=== PATIENT | female | born 1980 | race Caucasian/White ===

== ENCOUNTER 2016-09-04 20:11 | Emergency (ER) | payer MEDICAID ==
[~2016-09-04] VITALS: Ht 167.6 cm; Wt 68.0 kg
[~2016-09-04 20:11] MED LIST: *INS REG3 SQ; INSU100V28 SQ; INSU3INS6 SUBCUT
[2016-09-05 05:56] VITALS: BP 124/72
[2016-09-05] MEDS ORDERED: INSU100I14 SQ (08:55)
[2016-09-05] MEDS ORDERED: INSU3INS6 SQ (08:55)
== END 2016-09-05 05:56 | disposition home or self-care (01) ==
LOC: ER 20:11
DX: E10.40 Type 1 diabetes mellitus with diabetic neuropathy, unspecified (principal); E10.610 Type 1 diabetes mellitus with diabetic neuropathic arthropathy; I10 Essential (primary) hypertension; F17.200 Nicotine dependence, unspecified, uncomplicated; Z59.0 Homelessness; Z88.0 Allergy status to penicillin; Z88.6 Allergy status to analgesic agent; Z88.8 Allergy status to other drugs, medicaments and biological substances; Z88.1 Allergy status to other antibiotic agents
CPT/HCPCS: 73610; 73630; 82962 ×5; 99284; A4606; Z7610

== ENCOUNTER 2016-09-05 07:28 | Inpatient (IN) | payer MEDICAID ==
[~2016-09-05] VITALS: Ht 167.6 cm; Wt 68.0 kg
[2016-09-05] VITALS (24 sets, daily range): BP systolic 97–155; BP diastolic 43–96
[2016-09-05] MEDS ORDERED: IV NS 0.9% 1,000 ML ONE ×2 (07:56→11:15)
[2016-09-05] MEDS ORDERED: IV SET PRIMARY PUMP SET 1 EA INFUS.SET MC ONE ×4 (07:56→14:47)
[2016-09-05] MEDS ORDERED: ONDANSETRON HCL/PF 4 MG/2 ML VIAL IVP ONE (08:00)
[2016-09-05] MEDS ORDERED: IV NS 0.9% 1,000 ML BAG IV ONE ×2 (08:00→11:00)
[2016-09-05 08:35] LABS: KETONES,URINE 2+ (NEGATIVE); LEUKOCYTE ESTERASE ,URINE NEGATIVE (NEGATIVE); PH,URINE 5.5 (5.0-8.0)
[2016-09-05 08:36] LABS: ADD UA MICROSCOPIC YES
[2016-09-05 08:38] LABS: PREGNANCY TEST URINE QUAL NEGATIVE (NEGATIVE)
[2016-09-05 08:42] LABS: ADD URINE CULTURE NO; WBC,URINE 0-2 /HPF (0-3)
[2016-09-05] MEDS ORDERED: INSU100I14 SQ (08:55)
[2016-09-05] MEDS ORDERED: INSU3INS6 SQ (08:55)
[2016-09-05] MEDS ORDERED: ONDANSETRON HCL/PF 4 MG/2 ML VIAL ONE (09:19)
[2016-09-05 10:37] LABS: ABG BASE EXCESS -16.2 mmol/L; ABG HCO3 7.6 mmol/L; ABG PCO2 15.5 mmHg (35.0-45.0); ABG TOTAL HEMOGLOBIN 11.7 G/dL (12.0-16.0); ALLEN TEST Pass; AaDO2 13.2 mmHg; O2Hb 96.5 % (94.0-97.0)
[2016-09-05 10:43] LABS: BASOPHILS % (AUTO) 0.2 % (0.0-2.0); DIFF TOTAL % 100 %; EOSINOPHILS % (AUTO) 0.2 % (0.0-6.0); HEMATOCRIT 34 % (33-45); HEMOGLOBIN 11.1 g/dL (11.5-14.8); LYMPHOCYTES # (AUTO) 0.9 /CMM (0.8-4.8); LYMPHOCYTES % (AUTO) 5.5 % (20.0-44.0); MEAN CORPUSCULAR HEMOGLOBIN 28 PG (26.0-33.0); MEAN CORPUSCULAR HGB CONC 33 g/dl (31.0-36.0); MEAN CORPUSCULAR VOLUME 86 fL (82-100); MONOCYTES # (AUTO) 0.4 /CMM (0.1-1.30); MONOCYTES % (AUTO) 2.4 % (2.0-12.0); NEUTROPHILS # (AUTO) 14.7 /CMM (1.8-8.9); NEUTROPHILS % (AUTO) 91.7 % (43.0-81.0); PLATELET COUNT (AUTO) 428 /CMM (150-450); RED BLOOD CELL COUNT(AUTO) 3.94 MIL/uL (4.0-5.2)
[2016-09-05] MEDS ORDERED: INSULIN REGULAR, HUMAN 100 UNIT in IV NS 0.9% 99 ML IV PRN ×4 (11:00→13:30)
[2016-09-05 11:39] LABS: ACETONE, SERUM SMALL (NEGATIVE)
[2016-09-05] MEDS ORDERED: IV NS 0.9% 1,000 ML BAG IV PRN (13:30)
[2016-09-05] MEDS ORDERED: ONDANSETRON HCL/PF 4 MG/2 ML VIAL IV PRN (14:00)
[2016-09-05] MEDS ORDERED: Z GUARD REMEDY 2 OZ OINT TP PRN (14:30)
[2016-09-05] MEDS ORDERED: HYDROCODONE/APAP 5/325MG 1 EACH TABLET PO PRN ×2 (14:30→21:00)
[2016-09-05] MEDS ORDERED: MAG HYDROX/AL HYDROX/SIMETH 30 ML UDC PO PRN (14:30)
[2016-09-05] MEDS ORDERED: ACETAMINOPHEN 325 MG TABLET PO PRN ×2 (14:30→21:00)
[2016-09-05] MEDS ORDERED: MAGNESIUM HYDROXIDE 30 ML UDC PO PRN (14:30)
[2016-09-05] MEDS ORDERED: ONDANSETRON HCL/PF 4 MG/2 ML VIAL IVP PRN (14:30)
[2016-09-05] MEDS: BLOOD SUGAR DIAGNOSTIC 1 EACH STRIP IN SCH ×9 (14:53→22:08)
[2016-09-05 17:12] LABS: CANNABINOID, URINE NEGATIVE (NEGATIVE); PHENCYCLIDINE SCREEN,URINE NEGATIVE (NEGATIVE)
[2016-09-05] MEDS ORDERED: IV D5/0.45 NACL 500 ML IV PRN (17:30)
[2016-09-05] MEDS ORDERED: IV D5/0.45 NACL 1,000 ML IV PRN (18:30)
[2016-09-05 18:43] LABS: ANION GAP 23 (5-14); CALCIUM, SERUM 8.2 mg/dL (8.5-10.1); CARBON DIOXIDE 13 mmol/L (21-32); CHLORIDE 104 mmol/L (98-107); CREATININE 1.2 mg/dL (0.6-1.3); GFR 51 mL/min (>60); GLUCOSE 178 mg/dL (74-106); UREA NITROGEN, BLOOD 24 mg/dL (7-18)
[2016-09-05 18:46] LABS: SODIUM SERUM 135 mmol/L (136-145)
[2016-09-05 18:51] LABS: ALANINE AMINOTRANSFERASE 27 U/L (12-78); ALBUMIN 2.4 g/dL (3.4-5.0); ASPARTATE AMINOTRANSFERASE 33 U/L (15-37); BILIRUBIN,TOTAL 0.4 mg/dL (0.2-1.0); INDIRECT BILIRUBIN 0.4 mg/dL (0.0-1.1); TOTAL PROTEIN, SERUM 6.4 g/dL (6.4-8.2)
[2016-09-05] MEDS: HYDROMORPHONE 1 MG/1 ML DISP.SYRIN IV PRN (21:03)
[2016-09-05] MEDS ORDERED: HYDROMORPHONE 1 MG/1 ML DISP.SYRIN IV ONE (21:30)
[2016-09-05] MEDS ORDERED: HYDROMORPHONE 1 MG/1 ML DISP.SYRIN IV PRN (21:30)
[2016-09-05 21:54] LABS: CALCIUM, SERUM 8.1 mg/dL (8.5-10.1); CREATININE 1.2 mg/dL (0.6-1.3); POTASSIUM 4.4 mmol/L (3.5-5.1)
[2016-09-05] MEDS: ZOLPIDEM TARTRATE 5 MG TABLET PO PRN (22:15)
[2016-09-05 23:57] LABS: CREATININE 1.2 mg/dL (0.6-1.3); POTASSIUM 4.5 mmol/L (3.5-5.1)
[2016-09-06] VITALS (24 sets, daily range): BP systolic 83–129; BP diastolic 36–77
[2016-09-06] MEDS ORDERED: BLOOD SUGAR DIAGNOSTIC 1 EACH STRIP IN SCH ×2 (01:00→18:00)
[2016-09-06] MEDS ORDERED: IV NS 0.9% 1,000 ML ONE (01:52)
[2016-09-06] MEDS: BLOOD SUGAR DIAGNOSTIC 1 EACH STRIP IN SCH ×6 (01:52→20:01)
[2016-09-06] MEDS: INSULIN REGULAR, HUMAN 100 UNIT/ML 3 ML VIAL SQ PRN ×5 (01:57→20:08)
[2016-09-06] MEDS: HYDROMORPHONE 1 MG/1 ML DISP.SYRIN IV PRN ×6 (01:58→22:05)
[2016-09-06] MEDS: IV NS 0.9% 1,000 ML IV PRN ×2 (01:58→10:01)
[2016-09-06] MEDS ORDERED: DEXTROSE 50%-WATER 50 ML DISP.SYRIN IV PRN (02:00)
[2016-09-06 04:43] LABS: BASOPHILS # (AUTO) 0.1 /CMM (0.0-0.2); BASOPHILS % (AUTO) 0.3 % (0.0-2.0); DIFF TOTAL % 100 %; EOSINOPHILS # (AUTO) 0.2 /CMM (0.0-0.7); EOSINOPHILS % (AUTO) 1.5 % (0.0-6.0); HEMATOCRIT 27 % (33-45); LYMPHOCYTES # (AUTO) 3.4 /CMM (0.8-4.8); LYMPHOCYTES % (AUTO) 23.6 % (20.0-44.0); MEAN CORPUSCULAR HEMOGLOBIN 28 PG (26.0-33.0); MEAN CORPUSCULAR HGB CONC 33 g/dl (31.0-36.0); MEAN CORPUSCULAR VOLUME 85 fL (82-100); MONOCYTES # (AUTO) 0.7 /CMM (0.1-1.30); MONOCYTES % (AUTO) 4.7 % (2.0-12.0); NEUTROPHILS # (AUTO) 10.2 /CMM (1.8-8.9); NEUTROPHILS % (AUTO) 69.9 % (43.0-81.0); PLATELET COUNT (AUTO) 409 /CMM (150-450); WHITE BLOOD COUNT (AUTO) 14.6 K/uL (4.3-11.0)
[2016-09-06] MEDS ORDERED: INSULIN REGULAR, HUMAN 100 UNIT/ML 10 ML VIAL ONE (04:53)
[2016-09-06 04:56] LABS: CALCIUM, SERUM 8.1 mg/dL (8.5-10.1); CREATININE 1.3 mg/dL (0.6-1.3); PHOSPHORUS 3.1 mg/dL (2.5-4.9); POTASSIUM 4.2 mmol/L (3.5-5.1)
[2016-09-06 10:38] LABS: CALCIUM, SERUM 8.2 mg/dL (8.5-10.1); CREATININE 1.1 mg/dL (0.6-1.3); POTASSIUM 3.9 mmol/L (3.5-5.1)
[2016-09-06] MEDS: diphenhydrAMINE HCL 50 MG/ML VIAL IV PRN (17:17)
[2016-09-06] MEDS: INSULIN DETEMIR 100 UNIT/ML CARTRIDGE SQ SCH (21:52)
[2016-09-06] MEDS ORDERED: INSULIN GLARGINE, 100 UNIT/ML CARTRIDGE SQ SCH (22:00)
[2016-09-07] VITALS: BP 118/77
[2016-09-07] MEDS: ZOLPIDEM TARTRATE 5 MG TABLET PO PRN ×2 (00:29→21:42)
[2016-09-07] MEDS: BLOOD SUGAR DIAGNOSTIC 1 EACH STRIP IN SCH ×6 (00:34→22:46)
[2016-09-07] MEDS: INSULIN REGULAR, HUMAN 100 UNIT/ML 3 ML VIAL SQ PRN ×5 (00:39→22:50)
[2016-09-07] MEDS: diphenhydrAMINE HCL 50 MG/ML VIAL IV PRN ×4 (01:40→21:42)
[2016-09-07] MEDS: HYDROMORPHONE 1 MG/1 ML DISP.SYRIN IV PRN ×6 (02:41→22:40)
[2016-09-07 16:00] VITALS: BP 127/79
[2016-09-07 20:00] VITALS: BP 134/81
[2016-09-07] MEDS ORDERED: BISACODYL (5 MG) 5 MG TABLET.DR PO ONE (22:30)
[2016-09-07] MEDS: INSULIN DETEMIR 100 UNIT/ML CARTRIDGE SQ SCH (22:51)
[2016-09-08] MEDS: BLOOD SUGAR DIAGNOSTIC 1 EACH STRIP IN SCH ×6 (01:55→20:36)
[2016-09-08] MEDS: INSULIN REGULAR, HUMAN 100 UNIT/ML 3 ML VIAL SQ PRN ×4 (01:56→22:00)
[2016-09-08] MEDS: HYDROMORPHONE 1 MG/1 ML DISP.SYRIN IV PRN ×5 (02:45→21:58)
[2016-09-08] MEDS: DEXTROSE 50%-WATER 50 ML DISP.SYRIN IV PRN (04:18)
[2016-09-08] MEDS: diphenhydrAMINE HCL 50 MG/ML VIAL IV PRN ×3 (05:17→17:23)
[2016-09-08 10:21] LABS: CALCIUM, SERUM 9.1 mg/dL (8.5-10.1); CREATININE 0.9 mg/dL (0.6-1.3); POTASSIUM 4.5 mmol/L (3.5-5.1)
[2016-09-08 10:39] LABS: BASOPHILS # (AUTO) 0.1 /CMM (0.0-0.2); BASOPHILS % (AUTO) 0.6 % (0.0-2.0); DIFF TOTAL % 100 %; EOSINOPHILS # (AUTO) 0.5 /CMM (0.0-0.7); EOSINOPHILS % (AUTO) 5.5 % (0.0-6.0); HEMATOCRIT 31 % (33-45); HEMOGLOBIN 10.3 g/dL (11.5-14.8); LYMPHOCYTES # (AUTO) 3.6 /CMM (0.8-4.8); LYMPHOCYTES % (AUTO) 37.8 % (20.0-44.0); MEAN CORPUSCULAR HEMOGLOBIN 28 PG (26.0-33.0); MEAN CORPUSCULAR HGB CONC 34 g/dl (31.0-36.0); MEAN CORPUSCULAR VOLUME 84 fL (82-100); MONOCYTES # (AUTO) 0.8 /CMM (0.1-1.30); MONOCYTES % (AUTO) 8.5 % (2.0-12.0); NEUTROPHILS # (AUTO) 4.5 /CMM (1.8-8.9); NEUTROPHILS % (AUTO) 47.6 % (43.0-81.0); PLATELET COUNT (AUTO) 414 /CMM (150-450); RED BLOOD CELL COUNT(AUTO) 3.68 MIL/uL (4.0-5.2); WHITE BLOOD COUNT (AUTO) 9.5 K/uL (4.3-11.0)
[2016-09-08] MEDS ORDERED: IV SET PRIMARY PUMP SET 1 EA INFUS.SET MC ONE (15:23)
[2016-09-08 19:52] VITALS: BP 119/75
[2016-09-08 20:00] VITALS: BP 119/75
[2016-09-08] MEDS: INSULIN DETEMIR 100 UNIT/ML CARTRIDGE SQ SCH (21:58)
[2016-09-09] MEDS: diphenhydrAMINE HCL 50 MG/ML VIAL IV PRN ×3 (00:25→17:02)
[2016-09-09] MEDS: ZOLPIDEM TARTRATE 5 MG TABLET PO PRN (00:26)
[2016-09-09] MEDS: BLOOD SUGAR DIAGNOSTIC 1 EACH STRIP IN SCH ×6 (00:33→21:51)
[2016-09-09] MEDS: DEXTROSE 50%-WATER 50 ML DISP.SYRIN IV PRN (04:48)
[2016-09-09 05:29] LABS: BASOPHILS % (AUTO) 0.6 % (0.0-2.0); DIFF TOTAL % 100 %; EOSINOPHILS # (AUTO) 0.4 /CMM (0.0-0.7); EOSINOPHILS % (AUTO) 5.8 % (0.0-6.0); HEMATOCRIT 29 % (33-45); HEMOGLOBIN 9.6 g/dL (11.5-14.8); LYMPHOCYTES # (AUTO) 2.4 /CMM (0.8-4.8); LYMPHOCYTES % (AUTO) 34.6 % (20.0-44.0); MEAN CORPUSCULAR HEMOGLOBIN 28 PG (26.0-33.0); MEAN CORPUSCULAR HGB CONC 34 g/dl (31.0-36.0); MEAN CORPUSCULAR VOLUME 83 fL (82-100); MONOCYTES # (AUTO) 0.7 /CMM (0.1-1.30); MONOCYTES % (AUTO) 9.5 % (2.0-12.0); NEUTROPHILS # (AUTO) 3.4 /CMM (1.8-8.9); NEUTROPHILS % (AUTO) 49.5 % (43.0-81.0); PLATELET COUNT (AUTO) 374 /CMM (150-450); RED BLOOD CELL COUNT(AUTO) 3.45 MIL/uL (4.0-5.2); WHITE BLOOD COUNT (AUTO) 6.9 K/uL (4.3-11.0)
[2016-09-09 05:41] LABS: CREATININE 0.8 mg/dL (0.6-1.3); POTASSIUM 3.5 mmol/L (3.5-5.1)
[2016-09-09 08:00] VITALS: BP 127/72
[2016-09-09] MEDS: DOCUSATE SODIUM 100 MG CAPSULE PO SCH (09:34)
[2016-09-09] MEDS: HYDROMORPHONE 1 MG/1 ML DISP.SYRIN IV PRN ×3 (09:36→19:06)
[2016-09-09] MEDS: INSULIN REGULAR, HUMAN 100 UNIT/ML 3 ML VIAL SQ PRN ×2 (13:07→17:32)
[2016-09-09 16:00] VITALS: BP 120/83
[2016-09-09 20:00] VITALS: BP 152/69
[2016-09-09] MEDS: INSULIN DETEMIR 100 UNIT/ML CARTRIDGE SQ SCH (22:36)
[2016-09-10] MEDS: diphenhydrAMINE HCL 50 MG/ML VIAL IV PRN ×4 (01:34→21:44)
[2016-09-10] MEDS: HYDROMORPHONE 1 MG/1 ML DISP.SYRIN IV PRN ×5 (01:34→21:44)
[2016-09-10] MEDS: BLOOD SUGAR DIAGNOSTIC 1 EACH STRIP IN SCH ×6 (01:58→21:44)
[2016-09-10] MEDS: INSULIN REGULAR, HUMAN 100 UNIT/ML 3 ML VIAL SQ PRN ×5 (02:02→22:34)
[2016-09-10 06:43] LABS: BASOPHILS # (AUTO) 0.1 /CMM (0.0-0.2); BASOPHILS % (AUTO) 1.1 % (0.0-2.0); DIFF TOTAL % 100 %; EOSINOPHILS # (AUTO) 0.4 /CMM (0.0-0.7); EOSINOPHILS % (AUTO) 5.8 % (0.0-6.0); HEMATOCRIT 31 % (33-45); HEMOGLOBIN 10.1 g/dL (11.5-14.8); LYMPHOCYTES # (AUTO) 3.2 /CMM (0.8-4.8); LYMPHOCYTES % (AUTO) 41.7 % (20.0-44.0); MEAN CORPUSCULAR HEMOGLOBIN 28 PG (26.0-33.0); MEAN CORPUSCULAR HGB CONC 33 g/dl (31.0-36.0); MEAN CORPUSCULAR VOLUME 84 fL (82-100); MONOCYTES # (AUTO) 0.5 /CMM (0.1-1.30); MONOCYTES % (AUTO) 6.9 % (2.0-12.0); NEUTROPHILS # (AUTO) 3.5 /CMM (1.8-8.9); NEUTROPHILS % (AUTO) 44.5 % (43.0-81.0); PLATELET COUNT (AUTO) 313 /CMM (150-450); RED BLOOD CELL COUNT(AUTO) 3.62 MIL/uL (4.0-5.2); WHITE BLOOD COUNT (AUTO) 7.8 K/uL (4.3-11.0)
[2016-09-10 07:02] LABS: CALCIUM, SERUM 8.7 mg/dL (8.5-10.1); CREATININE 0.8 mg/dL (0.6-1.3); POTASSIUM 3.8 mmol/L (3.5-5.1)
[2016-09-10 08:00] VITALS: BP 103/63
[2016-09-10] MEDS: DOCUSATE SODIUM 100 MG CAPSULE PO SCH (08:52)
[2016-09-10 16:00] VITALS: BP 104/68
[2016-09-10 20:00] VITALS: BP 102/60
[2016-09-10] MEDS: INSULIN DETEMIR 100 UNIT/ML CARTRIDGE SQ SCH (21:09)
[2016-09-10] MEDS ORDERED: INSULIN REGULAR, HUMAN 100 UNIT/ML 10 ML VIAL ONE (22:07)
[2016-09-10] MEDS: ZOLPIDEM TARTRATE 5 MG TABLET PO PRN (22:28)
[2016-09-11] MEDS: BLOOD SUGAR DIAGNOSTIC 1 EACH STRIP IN SCH ×6 (00:43→20:49)
[2016-09-11] MEDS: INSULIN REGULAR, HUMAN 100 UNIT/ML 3 ML VIAL SQ PRN ×5 (00:53→20:55)
[2016-09-11] MEDS: HYDROMORPHONE 1 MG/1 ML DISP.SYRIN IV PRN ×5 (01:53→20:28)
[2016-09-11] MEDS: DEXTROSE 50%-WATER 50 ML DISP.SYRIN IV PRN (04:42)
[2016-09-11] MEDS: diphenhydrAMINE HCL 50 MG/ML VIAL IV PRN ×3 (05:00→18:54)
[2016-09-11 08:00] VITALS: BP 100/74
[2016-09-11] MEDS: DOCUSATE SODIUM 100 MG CAPSULE PO SCH (08:55)
[2016-09-11 16:44] VITALS: BP 104/66
[2016-09-11 20:00] VITALS: BP 114/72
[2016-09-11] MEDS: ZOLPIDEM TARTRATE 5 MG TABLET PO PRN (20:50)
[2016-09-11] MEDS: INSULIN DETEMIR 100 UNIT/ML CARTRIDGE SQ SCH (21:00)
[2016-09-12] MEDS: BLOOD SUGAR DIAGNOSTIC 1 EACH STRIP IN SCH ×4 (00:38→13:01)
[2016-09-12] MEDS: HYDROMORPHONE 1 MG/1 ML DISP.SYRIN IV PRN ×4 (00:39→13:01)
[2016-09-12] MEDS: INSULIN REGULAR, HUMAN 100 UNIT/ML 3 ML VIAL SQ PRN ×4 (01:07→13:01)
[2016-09-12] MEDS: diphenhydrAMINE HCL 50 MG/ML VIAL IV PRN ×3 (01:09→13:04)
[2016-09-12 06:56] LABS: BASOPHILS # (AUTO) 0.1 /CMM (0.0-0.2); BASOPHILS % (AUTO) 0.6 % (0.0-2.0); DIFF TOTAL % 100 %; EOSINOPHILS # (AUTO) 0.7 /CMM (0.0-0.7); EOSINOPHILS % (AUTO) 8.1 % (0.0-6.0); HEMATOCRIT 29 % (33-45); HEMOGLOBIN 9.5 g/dL (11.5-14.8); LYMPHOCYTES # (AUTO) 3.3 /CMM (0.8-4.8); LYMPHOCYTES % (AUTO) 36.6 % (20.0-44.0); MEAN CORPUSCULAR HEMOGLOBIN 28 PG (26.0-33.0); MEAN CORPUSCULAR HGB CONC 33 g/dl (31.0-36.0); MEAN CORPUSCULAR VOLUME 85 fL (82-100); MONOCYTES # (AUTO) 0.8 /CMM (0.1-1.30); NEUTROPHILS # (AUTO) 4.2 /CMM (1.8-8.9); NEUTROPHILS % (AUTO) 45.7 % (43.0-81.0); PLATELET COUNT (AUTO) 390 /CMM (150-450); RED BLOOD CELL COUNT(AUTO) 3.38 MIL/uL (4.0-5.2); WHITE BLOOD COUNT (AUTO) 9.1 K/uL (4.3-11.0)
[2016-09-12 07:19] LABS: CALCIUM, SERUM 8.9 mg/dL (8.5-10.1); CREATININE 0.9 mg/dL (0.6-1.3); POTASSIUM 4.6 mmol/L (3.5-5.1)
[2016-09-12 08:00] VITALS: BP 133/86
[2016-09-12] MEDS: DOCUSATE SODIUM 100 MG CAPSULE PO SCH (08:57)
== END 2016-09-12 15:00 | disposition home or self-care (01) | DRG 380 ==
LOC: ER 07:29 → ICU 09:10 → MED 09-06 20:20 → TELE 09-06 21:02 → MED 09-07 20:54
PROVIDERS: ADMIT Family Medicine; ATTEND Family Medicine
PROC: 05HM33Z Insertion of Infusion Device into Right Internal Jugular Vein, Percutaneous Approach (ICD-10-PCS; principal; 2016-09-06)
PROC: 0JBR0ZZ Excision of Left Foot Subcutaneous Tissue and Fascia, Open Approach (ICD-10-PCS; 2016-09-09)
DX: E10.621 Type 1 diabetes mellitus with foot ulcer (principal); L97.429 Non-pressure chronic ulcer of left heel and midfoot with unspecified severity; E43 Unspecified severe protein-calorie malnutrition; E10.10 Type 1 diabetes mellitus with ketoacidosis without coma; F11.20 Opioid dependence, uncomplicated; E10.610 Type 1 diabetes mellitus with diabetic neuropathic arthropathy; L03.116 Cellulitis of left lower limb; I10 Essential (primary) hypertension; D72.829 Elevated white blood cell count, unspecified; Z59.0 Homelessness; F17.210 Nicotine dependence, cigarettes, uncomplicated; Z91.14 Patient's other noncompliance with medication regimen; D63.8 Anemia in other chronic diseases classified elsewhere; Z79.4 Long term (current) use of insulin; G89.29 Other chronic pain; K59.00 Constipation, unspecified; Z91.19 Patient's noncompliance with other medical treatment and regimen; E78.5 Hyperlipidemia, unspecified; Z88.0 Allergy status to penicillin
CPT/HCPCS: 36415; 36600; 71010-TC; 73030-TC; 80048-TC; 80061-TC; 80076-TC; 80305; 81000-TC; 82010-TC; 82947-TC; 82962-TC; 83605-TC; 83690-TC; 83735-TC; 84100-TC; 84703-TC; 85025-TC; 87081-TC; A4606; A6402; A6403; C1751; J1170; J1200; J1815; J2405; J3490; J7030; Z7610

== ENCOUNTER 2016-11-17 18:15 | Inpatient (IN) | payer MEDICAID ==
[~2016-11-17] VITALS: Ht 167.6 cm; Wt 69.4 kg
[~2016-11-17 18:15] MED LIST changes: -*INS REG3 SQ; +INSU100I14 SQ; -INSU100V28 SQ; +INSU3INS6 SQ; -INSU3INS6 SUBCUT
[2016-11-17 20:24] LABS: BASOPHILS # (AUTO) 0.4 /CMM (0.0-0.2); BASOPHILS % (AUTO) 2.4 % (0.0-2.0); EOSINOPHILS # (AUTO) 0.2 /CMM (0.0-0.7); EOSINOPHILS % (AUTO) 0.9 % (0.0-6.0); HEMATOCRIT 36 % (33-45); HEMOGLOBIN 12.1 g/dL (11.5-14.8); LYMPHOCYTES # (AUTO) 2.3 /CMM (0.8-4.8); LYMPHOCYTES % (AUTO) 12.2 % (20.0-44.0); MEAN CORPUSCULAR HEMOGLOBIN 28 PG (26.0-33.0); MEAN CORPUSCULAR HGB CONC 34 g/dl (31.0-36.0); MEAN CORPUSCULAR VOLUME 82 fL (82-100); MONOCYTES # (AUTO) 1.1 /CMM (0.1-1.30); MONOCYTES % (AUTO) 5.7 % (2.0-12.0); NEUTROPHILS # (AUTO) 14.6 /CMM (1.8-8.9); NEUTROPHILS % (AUTO) 78.8 % (43.0-81.0); PLATELET COUNT (AUTO) 406 /CMM (150-450); RDW COEFFICIENT OF VARIATION 14.9 (11.5-15.0); RED BLOOD CELL COUNT(AUTO) 4.36 MIL/uL (4.0-5.2); WHITE BLOOD COUNT (AUTO) 18.6 K/uL (4.3-11.0)
[2016-11-17] MEDS ORDERED: IV NS 0.9% 1,000 ML BAG IV ONE (20:30)
[2016-11-17 20:34] LABS: CALCIUM, SERUM 8.9 mg/dL (8.5-10.1); POTASSIUM 3.2 mmol/L (3.5-5.1)
[2016-11-17 20:40] LABS: ALBUMIN 2.9 g/dL (3.4-5.0); BILIRUBIN,TOTAL 0.2 mg/dL (0.2-1.0); TOTAL PROTEIN, SERUM 6.9 g/dL (6.4-8.2)
[2016-11-17] MEDS ORDERED: IV NS 0.9% 1,000 ML ONE ×2 (21:16→22:42)
[2016-11-17] MEDS ORDERED: IV SET PRIMARY 1 EA INFUS.SET MC ONE ×2 (21:16→21:29)
[2016-11-17] MEDS ORDERED: IV NS 0.9% 0 ML IV ONE (21:16)
[2016-11-17] MEDS ORDERED: LEVOFLOXACIN 750 MG /D5W 150ML 150 ML IV ONE (21:16)
[2016-11-17] MEDS ORDERED: IV SET PRIMARY PUMP SET 1 EA INFUS.SET MC ONE ×2 (21:16→22:43)
[2016-11-17] MEDS ORDERED: VANCOMYCIN 1 GM VIAL ONE (21:16)
[2016-11-17] MEDS ORDERED: LEVOFLOXACIN 750 MG /D5W 150ML 750 MG in PREMIX 1 EA IV SCH (21:30)
[2016-11-17] MEDS ORDERED: VANCOMYCIN 1 GM in IV D5W 250 ML IV SCH (21:30)
--- NOTE | 2016-11-17 22:44 | NUR ---
CALLED NURSING SUP. FOR MS BED
[2016-11-17] MEDS ORDERED: MAG HYDROX/AL HYDROX/SIMETH 30 ML UDC PO PRN (23:30)
[2016-11-17] MEDS ORDERED: MAGNESIUM HYDROXIDE 30 ML UDC PO PRN (23:30)
--- NOTE | 2016-11-17 23:30 | NUR ---
GOING TO BED M/S 322-2
[2016-11-18] VITALS: BP 125/72
--- NOTE | 2016-11-18 | NUR ---
UNABLE TO ESTABLISH PERIPHERAL IV AFTER SEVERAL ATTEMPTS BY FOUR DIFFERENT NURSES. JURGEN WOMACK, KESHAWN AWARE THAT PT DID NOT RECEIVE ABX PRIOR TO TRANSFER TO FLOOR; INFORMED HE WOULD PLACE AN ORDER FOR MID-LINE PLACEMENT. CAR DELIVERER, SERA INFORMED.
--- NOTE | 2016-11-18 00:01 | NUR ---
RN MS - ADMITTING NOTES RECEIVED PATIENT FROM E.R ALERT AND ORIENTED X4. NO S/S OF SOB NOTED. PATIENT STILL COMPLAINS OF LEFT FOOT PAIN 5/10 BUT TOLERABLE AND DOES NOT WANT TO TAKE ANY MEDICATION. PATIENT DOES NOT HAVE ANY PERIPHERAL I.V AND IS DUE FOR MIDLINE INSERTION PER HANNA JONES FROM E.R. ADMITTING NURSE PRACTITIONER JURGEN WOMACK ALSO AWARE THAT PATIENT DOES NOT HAVE ANY PERIPHERAL LINE. PATIENT NOTED TO HAVE A KERLIX WRAPPED ON HER LEFT FOOT, PER PATIENT SHE WANTS THE PHOTO TO BE TAKEN LATER IN A.M BECAUSE SHE JUST WANTED TO REST FOR NOW. BED IN LOW POSITION AND LOCKED. SIDERAILS X 2 UP. CALL LIGHT IS WITHIN REACH. WILL CONTINUE TO MONITOR PATIENT.
--- NOTE | 2016-11-18 00:15 | NUR ---
RN MS - NOTES PATIENT NOTED TO HAVE $404 DOLLARS IN HER WALLET. PATIENT REFUSED TO PUT THE MONEY IN THE SAFE AND VERBALIZES THAT SHE WANTS IT IN HER WALLET INSTEAD. ANDREA MONTESINOS WITNESSED WITH HANNA MOLINA REGARDING THE MONEY BEING LEFT IN HER WALLET. PATIENT SIGNED THE BELONGING PAPER.
[2016-11-18] MEDS ORDERED: DEXTROSE 50%-WATER 50 ML DISP.SYRIN IV PRN (02:00)
[2016-11-18] MEDS ORDERED: POTASSIUM CHLORIDE 20 MEQ POWDER PACKET PO ONE (02:00)
[2016-11-18] MEDS ORDERED: POTASSIUM CHLORIDE 20 MEQ POWDER PACKET ONE (02:03)
[2016-11-18] MEDS: BLOOD SUGAR DIAGNOSTIC 1 EACH STRIP IN SCH ×4 (06:40→22:21)
--- NOTE | 2016-11-18 07:40 | NUR ---
MS RN OPENING NOTES RECEIVED PT. FROM NIGHTSHIFT NURSE IN STABLE CONDITION. PT. CURRENTLY ASLEEP IN BED. NO SOB OR SIGNS OF DISTRESS AT THIS TIME. CURRENTLY AWAITING MIDLINE INSERTION. BED IN LOW LOCKED POSITION, SIDE RAILS UP X2, CALL LIGHT WITHIN REACH. WILL CONTINUE TO MONITOR.
[2016-11-18 08:00] VITALS: BP 95/45
[2016-11-18] MEDS ORDERED: LEVOFLOXACIN (500MG) 500 MG TABLET PO ONE (08:00)
[2016-11-18] MEDS ORDERED: FEE PK DOSING 1 MIN EA MC ONE (08:12)
[2016-11-18] MEDS: PANTOPRAZOLE 40 MG TABLET.DR PO SCH (08:46)
[2016-11-18] MEDS ORDERED: LEVOFLOXACIN 500 MG /D5W 100ML 500 MG/100 ML PIGGYBACK IV ONE (09:00)
--- NOTE | 2016-11-18 11:27 | NUR ---
Social service consult requested by Nilohuy Eric for homelessness. Per H&P by KESHAWN Gaines, pt. is a 36-year-old female patient who was brought in by the EMS to the emergency department for severe left foot pain. The patient is homeless, and came to the street, and states that her left foot pain has been getting worse over the last 2 days. The patient's past medical history includes diabetes, left foot cellulitis/ left foot Charcot, medication noncompliance, and homelessness. LES met with pt. bedside. SW is familiar with pt. from a previous admission in August 2016. Pt. was lying in bed with her eyes closed. SW attempted to assess pt. however she was unable to provide information. When LES asked pt. " if she knew where she currently is?" Pt. stated " [facility]". SW to follow up at a later time to assess pt. when pt. is more alert and oriented.
--- NOTE | 2016-11-18 11:42 | NUR ---
MS RN NOTES STAT BMP WAS CANCELLED DUE TO NO IV ACCESS. JURGEN THE LUBRICATING ENGINEER WAS MADE AWARE AND WILL REORDER ONCE THE MIDLINE IS INSERTED.
--- NOTE | 2016-11-18 12:30 | NUR ---
MS RN NOTES AN IV WAS SUCCESSFULLY STARTED BY AN ER NURSE. AWAITING FURTHER ORDERS
--- NOTE | 2016-11-18 12:35 | NUR ---
MS RN NOTES PT'S BLOOD SUGAR WAS 431. A REPEAT TEST WAS DONE, AND IS 463. 10 UNITS OF INSULING WAS ADMINISTERED. DR. DAVE WAS NOTIFIED.
[2016-11-18] MEDS ORDERED: VANCOMYCIN 1 GM in IV D5W 250 ML IV SCH ×2 (13:00→14:00)
[2016-11-18] MEDS: INSULIN REGULAR, HUMAN 100 UNIT/ML 3 ML VIAL SQ PRN ×3 (13:01→18:09)
[2016-11-18] MEDS: HYDROMORPHONE INJ 2 MG/ML DISP.SYRIN IV PRN ×2 (13:02→20:12)
--- NOTE | 2016-11-18 13:36 | NUR ---
MS RN NOTES 1300 VANCO DOSE WAS NOT GIVEN. PT EXPRESSED THAT SHE GETS A GENERALIZED RED RASH WHENEVER IT IS ADMINISTERED. PHARMACY WAS NOTIFIED AND SAID THEY WILL NOTIFY JURGEN THE SATIN FINISHER. WILL WAIT FOR FURTHER INSTRUCTIONS AND ORDERS.
--- NOTE | 2016-11-18 14:03 | NUR ---
MS RN NOTES PT.S BLOOD SUGAR WAS RECHECKED AFTER INSULIN ADMINISTRATION. HER SUGAR REMAINED HIGH AT 472. DR. DAVE WAS NOTIFIED. PER MD ORDER, ANOTHER 10 UNITS OF REGULAR INSULIN WAS ADMINISTERED AND LANTUS WAS ORDERED QHS. WILL CONTINUE TO MONITOR.
--- NOTE | 2016-11-18 15:39 | NUR ---
LES met with pt. to reassess. Pt. is A&O x 4. Pt. is homeless and resides on the streets or at a friend's place at times. Pt. currently receives approximately $800/month in [place]. Pt. does not have a [place] ID and therefore cannot stay in motels. Pt. denies using drugs and drinking alcohol. 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 Pt. denies suicidal/homicidal ideations and visual/auditory hallucinations at this time. Pt. denies having any psychiatric diagnosis or hospitalizations. Pt. is open to going to a usp once medically clear. LES to offer pt. DMV No fee verification form to complete since pt. has no [place] ID. LES to assist pt. in usp placement and resources once pt. is medically cleared for discharge.
[2016-11-18 16:00] VITALS: BP 110/68
[2016-11-18 16:45] LABS: BASOPHILS % (AUTO) 0.4 % (0.0-2.0); EOSINOPHILS # (AUTO) 0.2 /CMM (0.0-0.7); EOSINOPHILS % (AUTO) 1.7 % (0.0-6.0); HEMATOCRIT 34 % (33-45); HEMOGLOBIN 10.9 g/dL (11.5-14.8); LYMPHOCYTES # (AUTO) 2.3 /CMM (0.8-4.8); LYMPHOCYTES % (AUTO) 21.5 % (20.0-44.0); MEAN CORPUSCULAR HEMOGLOBIN 27 PG (26.0-33.0); MEAN CORPUSCULAR HGB CONC 32 g/dl (31.0-36.0); MEAN CORPUSCULAR VOLUME 83 fL (82-100); MONOCYTES # (AUTO) 0.6 /CMM (0.1-1.30); MONOCYTES % (AUTO) 5.8 % (2.0-12.0); NEUTROPHILS # (AUTO) 7.5 /CMM (1.8-8.9); NEUTROPHILS % (AUTO) 70.6 % (43.0-81.0); PLATELET COUNT (AUTO) 427 /CMM (150-450); RDW COEFFICIENT OF VARIATION 15.6 (11.5-15.0); RED BLOOD CELL COUNT(AUTO) 4.06 MIL/uL (4.0-5.2); WHITE BLOOD COUNT (AUTO) 10.7 K/uL (4.3-11.0)
[2016-11-18 16:58] LABS: APPEARANCE,URINE SL CLOUDY (CLEAR); BILIRUBIN,URINE NEGATIVE (NEGATIVE); BLOOD, URINE TRACE-INTA Ery/uL (NEGATIVE); COLOR,URINE YELLOW (YELLOW); KETONES,URINE TRACE (NEGATIVE); LEUKOCYTE ESTERASE ,URINE NEGATIVE (NEGATIVE); NITRITE, URINE NEGATIVE (NEGATIVE); PROTEIN,URINE TRACE mg/dl (NEGATIVE); UGLUCOSE 3+ mg/dL (NEGATIVE); UROBILINOGEN,URINE 0.2 EU/dL (0.2)
[2016-11-18 17:05] LABS: CALCIUM, SERUM 8.4 mg/dL (8.5-10.1); CREATININE 1.3 mg/dL (0.6-1.3); MAGNESIUM 1.9 mg/dL (1.8-2.4); PHOSPHORUS 3.1 mg/dL (2.5-4.9); POTASSIUM 4.3 mmol/L (3.5-5.1)
[2016-11-18 17:19] LABS: ADD URINE CULTURE YES; BACTERIA,URINE Few /HPF (None Seen)
[2016-11-18 17:25] LABS: SQUAMOUS EPITHELIAL CELL,UR Moderate /HPF (None Seen)
[2016-11-18] MEDS: LACTOBACILLUS RHAMNOSUS GG 1 EACH CAP.SPRINK PO SCH (17:40)
--- NOTE | 2016-11-18 18:10 | NUR ---
MS RN CLOSING NOTES PT. IN STABLE CONDITION. NO SOB OR SIGNS OF DISTRESS AT THIS TIME. PICC LINE WAS INSERTED ON RIGHT UPPER ARM. PATENT AND INTACT. BED IN LOW LOCKED POSITION, SIDE RAILS UP X2, CALL LIGHT WITHIN REACH. WILL EDNORSE TO NIGHTSHIFT NURSE FOR MABLE.
--- NOTE | 2016-11-18 19:40 | NUR ---
MS/RN NOTES RECEIVED PT. SITTING UP IN CHAIR. AWAKE, ALERT AND ORIENTED X4. BREATHING EVEN AND UNLABORED ON ROOM AIR. NO SOB, RESPIRATORY DISTRESS OR COMPLAINTS OF PAIN NOTED AT THIS TIME. NO S/S OF HYPO/HYPERGYLCEMIA NOTED AT THIS TIME. PT. WITH RIGHT UPPER ARM PICC PRESENT, PATENT AND INTACT. PT. REFUSING IV FLUIDS AT THIS TIME. EDUCATED PT. ON IMPORTANCE OF IV FLUID HYDRATION PT. STATED SHE IS DRINKING WATER AND THAT IV FLUIDS MAKE HER SWELL UP. PT. VERBALIZED UNDERSTANDING AND CONTINUES TO REFUSE. BED IN LOWEST POSITION, CALL LIGHT WITHIN REACH, WILL CONTINUE TO MONITOR.
[2016-11-18 20:00] VITALS: BP 123/71
[2016-11-18] MEDS: LEVOFLOXACIN (500MG) 500 MG TABLET PO SCH (20:00)
[2016-11-18] MEDS ORDERED: HYDROMORPHONE INJ 2 MG/ML DISP.SYRIN ONE (20:04)
[2016-11-18] MEDS ORDERED: IV NS 0.9% 1,000 ML ONE (20:04)
[2016-11-18] MEDS ORDERED: IV SET PRIMARY PUMP SET 1 EA INFUS.SET MC ONE (20:05)
[2016-11-18] MEDS: IV NS 0.9% 1,000 ML IV PRN (20:12)
[2016-11-18] MEDS ORDERED: LINEZOLID 600 MG TABLET PO SCH (21:00)
[2016-11-18] MEDS: SULFAMETH/TRIMETH 800/160 MG 1 UDTAB TABLET PO SCH (21:15)
[2016-11-18] MEDS ORDERED: INSULIN GLARGINE, 100 UNIT/ML CARTRIDGE SQ SCH (22:00)
[2016-11-18] MEDS ORDERED: INSULIN DETEMIR 100 UNIT/ML CARTRIDGE SQ SCH (22:00)
[2016-11-19] MEDS ORDERED: diphenhydrAMINE HCL 25 MG CAPSULE ONE (01:00)
--- NOTE | 2016-11-19 01:02 | NUR ---
MS/RN NOTES PT. COMPLAINING OF ITCHINESS ON HER ARMS AND LEFT LEG. PT. REQUESTING BENADRYL FOR THE ITCHING. PT. WITH NO BENADRYL MEDICATION ORDERED. NOTIFIED KESHAWN WOMACK. PER KESHAWN WOMACK NEW ORDER: BENADRYL 25MG PO Q6 HOUR PRN ITCHING. WILL CARRY OUT ORDER. WILL CONTINUE TO MONITOR.
[2016-11-19] MEDS: diphenhydrAMINE HCL 25 MG CAPSULE PO PRN (01:05)
[2016-11-19] MEDS ORDERED: HYDROMORPHONE INJ 2 MG/ML DISP.SYRIN ONE ×2 (02:11→22:09)
[2016-11-19] MEDS: HYDROMORPHONE INJ 2 MG/ML DISP.SYRIN IV PRN ×4 (02:16→22:14)
[2016-11-19] MEDS: BLOOD SUGAR DIAGNOSTIC 1 EACH STRIP IN SCH ×4 (06:42→22:23)
[2016-11-19] MEDS: INSULIN REGULAR, HUMAN 100 UNIT/ML 3 ML VIAL SQ PRN ×2 (06:45→09:42)
--- NOTE | 2016-11-19 06:50 | NUR ---
MS/RN NOTES PT. LYING IN BED RESTING. BREATHING EVEN AND UNLABORED ON ROOM AIR. NO SOB, RESPIRATORY DISTRESS OR COMPLAINTS OF PAIN NOTED AT THIS TIME. NO S/S OF HYPO/HYPERGLYCEMIA NOTED AT THIS TIME AND THROUGHOUT SHIFT. PT. WITH RIGHT UPPER ARM PICC PRESENT, PATENT AND INTACT. PT. CONTINUES TO REFUSING IV FLUIDS. EDUCATED PT. ON IMPORTANCE OF IV FLUID HYDRATION PT. VERBALIZED UNDERSTANDING AND CONTINUES TO REFUSE. ALL PT. NEEDS MET. BED IN LOWEST POSITION, CALL LIGHT WITHIN REACH, WILL ENDORSE TO DAYSHIFT NURSE FOR CONTINUITY OF CARE.
--- NOTE | 2016-11-19 07:21 | NUR ---
MS RN OPENING NOTES RECEIVED PT FROM NIGHTSHIFT NURSE IN STABLE CONDITION. NO SOB OR SIGNS OF DISTRESS AT THIS TIME. PICC LINE ON RIGHT UPPER ARM. PATENT AND INTACT. BED IN LOW LOCKED POSITION, SIDE RAILS UP X2, CALL LIGHT WITHIN REACH. WILL CONTINUE TO MONITOR
[2016-11-19 07:28] LABS: BASOPHILS # (AUTO) 0.1 /CMM (0.0-0.2); BASOPHILS % (AUTO) 0.5 % (0.0-2.0); EOSINOPHILS # (AUTO) 0.4 /CMM (0.0-0.7); EOSINOPHILS % (AUTO) 3.2 % (0.0-6.0); HEMATOCRIT 33 % (33-45); HEMOGLOBIN 10.6 g/dL (11.5-14.8); LYMPHOCYTES # (AUTO) 3.1 /CMM (0.8-4.8); MEAN CORPUSCULAR HEMOGLOBIN 27 PG (26.0-33.0); MEAN CORPUSCULAR HGB CONC 32 g/dl (31.0-36.0); MEAN CORPUSCULAR VOLUME 84 fL (82-100); MONOCYTES # (AUTO) 0.7 /CMM (0.1-1.30); MONOCYTES % (AUTO) 6.3 % (2.0-12.0); NEUTROPHILS # (AUTO) 7.5 /CMM (1.8-8.9); PLATELET COUNT (AUTO) 363 /CMM (150-450); RDW COEFFICIENT OF VARIATION 15.8 (11.5-15.0); RED BLOOD CELL COUNT(AUTO) 3.95 MIL/uL (4.0-5.2); WHITE BLOOD COUNT (AUTO) 11.8 K/uL (4.3-11.0)
[2016-11-19 08:00] VITALS: BP 121/80
[2016-11-19] MEDS: PANTOPRAZOLE 40 MG TABLET.DR PO SCH (08:51)
[2016-11-19] MEDS: SULFAMETH/TRIMETH 800/160 MG 1 UDTAB TABLET PO SCH ×2 (08:51→20:42)
[2016-11-19] MEDS: LACTOBACILLUS RHAMNOSUS GG 1 EACH CAP.SPRINK PO SCH ×2 (08:51→17:19)
[2016-11-19 09:07] LABS: CALCIUM, SERUM 8.8 mg/dL (8.5-10.1); CREATININE 1.3 mg/dL (0.6-1.3); MAGNESIUM 1.9 mg/dL (1.8-2.4); POTASSIUM 4.1 mmol/L (3.5-5.1)
--- NOTE | 2016-11-19 09:19 | NUR ---
MS RN NOTES PT'S LAB BLOOD GLUCOSE IS 480. DR. DAVE WAS NOTIFIED AND ORDERED AN ADDITIONAL 10UNITS OF REGULAR INSULIN BE ADMINISTERED.
[2016-11-19] MEDS ORDERED: DEXTROSE 50%-WATER 50 ML DISP.SYRIN IV PRN (10:00)
[2016-11-19] MEDS: INSULIN ASPART NOVOLOG 100 UNIT/ML CARTRIDGE SQ PRN (12:39)
[2016-11-19 16:02] VITALS: BP 115/69
--- NOTE | 2016-11-19 17:57 | NUR ---
MS RN NOTES PT'S 1700 BLOOD SUGAR WAS 40. ORANGE JUICE WAS GIVE, SUGAR WAS RECHECKED AND IT WENT DOWN TO 35. DEXTROSE WAS THEN PUSHED. SUGAR WAS RECHECKED AND IS NOW 185. INSULIN WAS HELD. DR. DAVE WAS NOTIFIED AND MADE AWARE.
--- NOTE | 2016-11-19 18:35 | NUR ---
MS RN CLOSING NOTES PT. IN STABLE CONDITION. A/0 X4. NO SOB OR SIGNS OF DISTRESS AT THIS TIME. PICC LINE ON RIGHT UPPER ARM. PATENT AND INTACT. BED IN LOW LOCKED POSITION, SIDE RAILS UP X2, CALL LIGHT WITHIN REACH. ALL ORDERS CARRIED OUT SUCCESSFULLY THROUGHOUT SHIFT. WILL ENDORSE TO NIGHTSHIFT NURSE FOR MABLE.
--- NOTE | 2016-11-19 19:35 | NUR ---
MS/RN NOTES RECEIVED PT. SITTING UP IN BED. AWAKE, ALERT AND ORIENTED X4. BREATHING EVEN AND UNLABORED ON ROOM AIR. NO SOB, RESPIRATORY DISTRESS OR COMPLAINTS OF PAIN NOTED AT THIS TIME. PT. WITH RIGHT UPPER ARM PICC PRESENT, PATENT AND INTACT. NO S/S OF HYPO/HYPERGLYCEMIA NOTED AT THIS TIME. PT. WITH LEFT FOOT DRESSING PRESENT AND INTACT. BED IN LOWEST POSITION, CALL LIGHT WITHIN REACH, WILL CONTINUE TO MONITOR.
[2016-11-19 20:00] VITALS: BP 124/72
[2016-11-19] MEDS: LEVOFLOXACIN (500MG) 500 MG TABLET PO SCH (20:42)
[2016-11-19] MEDS: *INSULIN ASPART NOVOLOG 100 UNIT/ML CARTRIDGE SQ PRN (22:24)
[2016-11-19] MEDS: INSULIN DETEMIR 100 UNIT/ML CARTRIDGE SQ SCH (22:25)
--- NOTE | 2016-11-19 22:31 | NUR ---
MS/RN NOTES PT. B MG/DL. UPON REPEAT B MG/DL. NO S/S OF HYPO/HYPERGLYCEMIA NOTED. ADMINISTERED TO PT. NOVOLOG 10 UNITS PER INSULIN SLIDING SCALE ORDERED AND NOTIFIED KESHAWN WOMACK. PER KESHAWN WOMACK NO ADDITIONAL INSULIN COVERAGE NEEDED AT THIS TIME. NO NEW ORDERS AT THIS TIME. WILL CONTINUE TO MONITOR.
[2016-11-20] MEDS: diphenhydrAMINE HCL 25 MG CAPSULE PO PRN ×3 (00:04→17:38)
[2016-11-20] MEDS: HYDROMORPHONE INJ 2 MG/ML DISP.SYRIN IV PRN ×3 (06:28→20:32)
[2016-11-20] MEDS: BLOOD SUGAR DIAGNOSTIC 1 EACH STRIP IN SCH ×4 (06:50→21:56)
[2016-11-20] MEDS: INSULIN ASPART NOVOLOG 100 UNIT/ML CARTRIDGE SQ PRN ×4 (06:51→21:52)
--- NOTE | 2016-11-20 06:55 | NUR ---
MS/RN NOTES PT. LYING IN BED. AWAKE, ALERT AND ORIENTED X4. BREATHING EVEN AND UNLABORED ON ROOM AIR. NO SOB, RESPIRATORY DISTRESS OR COMPLAINTS OF PAIN NOTED AT THIS TIME. PT. WITH RIGHT UPPER ARM PICC PRESENT, PATENT AND INTACT. PT. CONTINUES TO REFUSE IV FLUIDS. NO S/S OF HYPO/HYPERGLYCEMIA NOTED AT THIS TIME. PT. WITH LEFT FOOT DRESSING PRESENT AND INTACT. ALL PT. NEEDS MET. BED IN LOWEST POSITION, CALL LIGHT WITHIN REACH, WILL ENDORSE TO DAYSHIFT NURSE FOR CONTINUITY OF CARE.
[2016-11-20] MEDS: PANTOPRAZOLE 40 MG TABLET.DR PO SCH (07:30)
--- NOTE | 2016-11-20 07:34 | NUR ---
RN OPEN NOTES RECEIVED REPORT FROM FOOD CONCESSION MANAGER NURSE. PATIENT IS AWAKE AND AMBULATORY IN HALLWAY. DENIED PAIN. NO SIGNS AND SYMPTOMS OF DISTRESS. WILL CONTINUE TO MONITOR AND ASSESS PATIENT.
[2016-11-20 07:51] VITALS: BP 130/75
[2016-11-20] MEDS: SULFAMETH/TRIMETH 800/160 MG 1 UDTAB TABLET PO SCH ×2 (08:08→20:26)
[2016-11-20] MEDS: LACTOBACILLUS RHAMNOSUS GG 1 EACH CAP.SPRINK PO SCH ×2 (08:08→17:34)
[2016-11-20 08:11] LABS: BASOPHILS % (AUTO) 0.3 % (0.0-2.0); EOSINOPHILS # (AUTO) 0.5 /CMM (0.0-0.7); EOSINOPHILS % (AUTO) 4.7 % (0.0-6.0); HEMATOCRIT 34 % (33-45); HEMOGLOBIN 10.9 g/dL (11.5-14.8); LYMPHOCYTES # (AUTO) 2.9 /CMM (0.8-4.8); LYMPHOCYTES % (AUTO) 27.1 % (20.0-44.0); MEAN CORPUSCULAR HEMOGLOBIN 27 PG (26.0-33.0); MEAN CORPUSCULAR HGB CONC 33 g/dl (31.0-36.0); MEAN CORPUSCULAR VOLUME 83 fL (82-100); MONOCYTES # (AUTO) 0.6 /CMM (0.1-1.30); MONOCYTES % (AUTO) 5.8 % (2.0-12.0); NEUTROPHILS # (AUTO) 6.7 /CMM (1.8-8.9); NEUTROPHILS % (AUTO) 62.1 % (43.0-81.0); PLATELET COUNT (AUTO) 436 /CMM (150-450); RDW COEFFICIENT OF VARIATION 15.5 (11.5-15.0); RED BLOOD CELL COUNT(AUTO) 4.05 MIL/uL (4.0-5.2); WHITE BLOOD COUNT (AUTO) 10.8 K/uL (4.3-11.0)
[2016-11-20 08:38] LABS: CALCIUM, SERUM 8.7 mg/dL (8.5-10.1); CREATININE 1.1 mg/dL (0.6-1.3); MAGNESIUM 1.9 mg/dL (1.8-2.4); PHOSPHORUS 3.7 mg/dL (2.5-4.9); POTASSIUM 4.4 mmol/L (3.5-5.1)
--- NOTE | 2016-11-20 12:53 | NUR ---
RN NOTES DILAUDID WAS GIVEN, BLOOD PRESSURE 108/68
[2016-11-20 16:00] VITALS: BP 106/59
--- NOTE | 2016-11-20 19:27 | NUR ---
RN CLOSING NOTES GAVE REPORT TO INFANTRY ASSAULTMAN NURSE. PATIENT IS SITTING IN A CHAIR. ALERT AND ORIENTED T TIME NAME AND PLACE. NO SIGNS AND SYMPTOMS OF DISTRESS. PICC LINE IS INTACT AND POTENT.
[2016-11-20 20:00] VITALS: BP 132/71
[2016-11-20] MEDS: LEVOFLOXACIN (500MG) 500 MG TABLET PO SCH (20:26)
[2016-11-20] MEDS: INSULIN DETEMIR 100 UNIT/ML CARTRIDGE SQ SCH (21:51)
[2016-11-20 22:00] VITALS: BP 132/71
[2016-11-21] MEDS: HYDROMORPHONE INJ 2 MG/ML DISP.SYRIN IV PRN ×4 (03:20→21:45)
--- NOTE | 2016-11-21 04:31 | NUR ---
RN NOTES: PATIENT REFUSES TO CHANGE DRESSING ON LEFT FOOT TO TAKE PICTURES OF THE WOUND. PATIENT STATES " I WANT DRESSING CHANGE DURING THE DAY". WILL ENDORSE IT TO AM SHIFT NURSE TO CONTINUE THE CARE.
[2016-11-21] MEDS: BLOOD SUGAR DIAGNOSTIC 1 EACH STRIP IN SCH ×4 (06:58→21:30)
[2016-11-21] MEDS: INSULIN ASPART NOVOLOG 100 UNIT/ML CARTRIDGE SQ PRN ×3 (07:01→17:20)
[2016-11-21 07:34] LABS: BASOPHILS % (AUTO) 0.4 % (0.0-2.0); EOSINOPHILS # (AUTO) 0.6 /CMM (0.0-0.7); EOSINOPHILS % (AUTO) 6.5 % (0.0-6.0); HEMATOCRIT 32 % (33-45); HEMOGLOBIN 10.3 g/dL (11.5-14.8); LYMPHOCYTES # (AUTO) 2.6 /CMM (0.8-4.8); LYMPHOCYTES % (AUTO) 27.7 % (20.0-44.0); MEAN CORPUSCULAR HEMOGLOBIN 27 PG (26.0-33.0); MEAN CORPUSCULAR HGB CONC 32 g/dl (31.0-36.0); MEAN CORPUSCULAR VOLUME 83 fL (82-100); MONOCYTES # (AUTO) 0.6 /CMM (0.1-1.30); MONOCYTES % (AUTO) 6.7 % (2.0-12.0); NEUTROPHILS # (AUTO) 5.6 /CMM (1.8-8.9); NEUTROPHILS % (AUTO) 58.7 % (43.0-81.0); PLATELET COUNT (AUTO) 361 /CMM (150-450); RDW COEFFICIENT OF VARIATION 15.7 (11.5-15.0); RED BLOOD CELL COUNT(AUTO) 3.84 MIL/uL (4.0-5.2); WHITE BLOOD COUNT (AUTO) 9.5 K/uL (4.3-11.0)
--- NOTE | 2016-11-21 07:37 | NUR ---
RN OPEN NOTES RECEIVED REPORT FROM CURING MACHINE OPERATOR NURSE. PATIENT IS IN HER ROOM, IN THE BATHROOM. PATIENT IS ALERT AND ORIENTED. NO SIGNS AND SYMPTOMS OF DISTRESS. WILL CONTINUE TO MONITOR AND ASSESS PATIENT
[2016-11-21 07:57] LABS: CALCIUM, SERUM 8.7 mg/dL (8.5-10.1); MAGNESIUM 1.9 mg/dL (1.8-2.4); POTASSIUM 4.7 mmol/L (3.5-5.1)
[2016-11-21 08:00] VITALS: BP 123/71
[2016-11-21] MEDS: SULFAMETH/TRIMETH 800/160 MG 1 UDTAB TABLET PO SCH ×2 (09:15→21:29)
[2016-11-21] MEDS: PANTOPRAZOLE 40 MG TABLET.DR PO SCH (09:15)
[2016-11-21] MEDS: LACTOBACILLUS RHAMNOSUS GG 1 EACH CAP.SPRINK PO SCH ×2 (09:15→16:28)
--- NOTE | 2016-11-21 12:30 | NUR ---
RN NOTES PATIENT WAS ALLOWED TO TAKE A SHOWER PER DR DAVE APPROVAL. PICC LINE WAS COVERED. LEFT FOOT WOUND WAS COVERED.
--- NOTE | 2016-11-21 12:40 | NUR ---
LES contacted [facility] and spoke to Cony who informed SW that they have a top bunk bed available. LES informed Cony she will speak with pt. and call back. LES met with pt. bedside to inform her that a top bunk is available at the 90 day snf. Pt. informed SW that she is unable to sleep on the top bunk due to her foot injury. Pt. also informed SW that Dr. Patton informed her that she will need to be placed in a rehab facility due to needing IV antibiotics. LES consulted with Pt's RN Tawana who confirmed that pt. will need IV antibiotics. LES completed [facility] order request form for identification card with pt. LES mailed completed form to [facility] so pt. can receive a [place] ID at no or low cost. Addendum: 11/21/16 at 1247 by LISA SALDANA LES discuss discharge plan with hospice case manager Kaylynn regarding pt. needing IV antibiotics according to Dr. Patton.
[2016-11-21] MEDS: ONDANSETRON HCL/PF 4 MG/2 ML VIAL IVP PRN ×2 (14:10→21:45)
--- NOTE | 2016-11-21 14:35 | NUR ---
RN NOTES LEFT FOOT DRESSING CHANGE PER HOSPITAL PROTOCOL. PICC LINE DRESSING CHANGED PER HOSPITAL PROTOCOL
--- NOTE | 2016-11-21 18:48 | NUR ---
RN CLOSING NOTES PATIENT IS IN BED, ALERT AND ORIENTED TO NAME, PLACE AND TIME. A FRIEND AT BEDSIDE. PATIENT WAS VOMITING THREE TIMES TODAY. DR DAVE MADE AWARE AND NEW ORDERS RECEIVED. PATIENT IS PENDING DISCHARGE FOR FINDING PLACEMENT AT SNF FACILITY DUE TO ANTIBIOTIC IV. PATIENT BLOOD SUGAR WAS MORE CONTROLLED TODAY. NO SIGNS AND SYMPTOMS OF DISTRESS. WILL ENDORSE TO DENTAL TECHNICIAN INSTRUCTOR NURSE
[2016-11-21] MEDS ORDERED: PROMETHAZINE HCL 25 MG TABLET PO PRN (19:00)
--- NOTE | 2016-11-21 20:00 | NUR ---
MS PATENT LAWYER INITIAL NOTES SEEN PT IN BED AWAKE AND ALERT QUIET SITTING WITH DRESSING ON HER LEFT FOOT DRY AND INTACT. NO N/V NOTED AT THIS TIME. SHE JUST STATED HER PAIN MEDS , ABLE TO AMBULATE BY HERSELF. NO SIGNS OF ANY ACUTE DISTRESS NOTED. KEPT HER WARM AND COMFORTABLE AT ALL TIMES. WILL CONTINUE TO MONITOR. PLACE CALL LIGHT AT REACH.
[2016-11-21 20:17] VITALS: BP 144/87
[2016-11-21 20:31] VITALS: BP 144/87
[2016-11-21] MEDS: LEVOFLOXACIN (500MG) 500 MG TABLET PO SCH (21:30)
--- NOTE | 2016-11-21 21:30 | NUR ---
CLERICAL ORDER FILLER/NOTES BLOOD SUGAR 125, NO INSULIN COVERAGES GIVEN, NO SIGNS OF HYPO GLYCEMIA NOTED. ROUTINE MEDS ALSO GIVEN .PT TOLERATED WELL, NO N/V NOTED AT THIS TIME. ASKING FOR HER PAIN MEDICATION WELL HER ZOFRAN. SPOKE TO HER THAT HER PAIN MEDS WILL ADMINISTERED BY ANOTHER NURSE. WELL HER ZOFRAN. WILL CONTINUE TO MONITOR. PLACE CALL LIGHT AT REACH.
[2016-11-21] MEDS: INSULIN DETEMIR 100 UNIT/ML CARTRIDGE SQ SCH (21:38)
--- NOTE | 2016-11-21 21:45 | NUR ---
MS RN NOTE: PATIENT COMPLAINS OF PAIN 9/10 TO LEFT FOOT, COVERING DENAE PATRICIO IV MEDICATIONS. DILAUDID 2MG IV GIVEN PER MD ORDER. WILL CONTINUE TO MONITOR.
[2016-11-22] MEDS: HYDROMORPHONE INJ 2 MG/ML DISP.SYRIN IV PRN (04:21)
[2016-11-22] MEDS: ONDANSETRON HCL/PF 4 MG/2 ML VIAL IVP PRN ×2 (04:21→18:05)
--- NOTE | 2016-11-22 04:21 | NUR ---
DEVELOPER EVANGELIST/NOTES C/O LEFT FOOT PAIN 03/09 , DILAUDID 2 MG ADMINISTERED BY NURSE AKILAH /RN SINA IVP WELL HER ZOFRAN TO CONTROL N/V AFTER PAIN MED GIVEN. SAFETY PRECAUTION IMPLEMENTED AND OBSERVED. PLACE CALL LIGHT AT REACH.
[2016-11-22] MEDS: BLOOD SUGAR DIAGNOSTIC 1 EACH STRIP IN SCH ×4 (06:01→22:52)
--- NOTE | 2016-11-22 06:01 | NUR ---
SANDBLASTING SUPERVISOR/NOTES BLOOD SUGAR 256, 12 UNITS OF NOVOLOG GIVEN SINA SQ ORDERED. NO SIGNS OF HYPER GLYCEMIA NOTED.
[2016-11-22] MEDS: INSULIN ASPART NOVOLOG 100 UNIT/ML CARTRIDGE SQ PRN ×2 (06:04→17:59)
--- NOTE | 2016-11-22 07:30 | NUR ---
received pt. alert and oriented x4.no complaints.
--- NOTE | 2016-11-22 07:30 | NUR ---
SUPERVISOR ALTERATION WORKROOM/CLOSING NOTES PT RESTING COMFORTABLY IN BED AFTER PAIN MEDS GIVEN. STABLE SINA THE NIGHT AND SEEMS QUIET. NOT IN ANY ACUTE DISTRESS NOTED. KEPT HER COMFORTABLE AT ALL TIMES. PLACE CALL LIGHT AT REACH. ENDORSE TO AM NURSE KARLEE Walker FOR CONTINUITY OF CARE.
[2016-11-22 08:00] VITALS: BP 127/68
[2016-11-22] MEDS: LACTOBACILLUS RHAMNOSUS GG 1 EACH CAP.SPRINK PO SCH ×3 (08:47→17:56)
[2016-11-22] MEDS: PANTOPRAZOLE 40 MG TABLET.DR PO SCH ×2 (08:47→11:14)
[2016-11-22] MEDS: SULFAMETH/TRIMETH 800/160 MG 1 UDTAB TABLET PO SCH ×3 (08:47→21:31)
[2016-11-22 09:59] LABS: CALCIUM, SERUM 9.3 mg/dL (8.5-10.1); CREATININE 0.9 mg/dL (0.6-1.3); MAGNESIUM 1.4 mg/dL (1.8-2.4); PHOSPHORUS 3.4 mg/dL (2.5-4.9); POTASSIUM 4.8 mmol/L (3.5-5.1)
--- NOTE | 2016-11-22 10:30 | NUR ---
dr. burdick in and spoke to pt. about taking too much pain med.dose changed.
[2016-11-22 16:00] VITALS: BP 135/80
[2016-11-22] MEDS: HYDROMORPHONE 1 MG/1 ML DISP.SYRIN IV PRN (18:05)
--- NOTE | 2016-11-22 18:05 | NUR ---
medicated for pain and nausea.
--- NOTE | 2016-11-22 19:15 | NUR ---
MS MIXING MACHINE TENDER INITIAL NOTES GOT REPORT FROM NURSE KARLEE Walker, CHECKED PT SHE LYING ON HER BED RESTING WITH EYES CLOSED . BREATHING EVEN AND UNLABORED, NOT IN ANY ACUTE DISTRESS NOTED. DRESSING ON HER LEFT FOOT DRY AND INTACT. KEPT HER WARM AND COMFORTABLE AT ALL TIMES. PLACE CALL LIGHT AT REACH. WILL CONTINUE TO MONITOR.
[2016-11-22 20:00] VITALS: BP 111/70
--- NOTE | 2016-11-22 20:40 | NUR ---
MS DENAE NOTES CALLED DR TENZIN LAKHANI TO LET HER KNOW REGARDING THE MG 1.4 LEVEL CAME OUT THIS MORNING , GOT ORDERED NOTED AND CARRIED OUT.
[2016-11-22] MEDS ORDERED: Magnesium 1 GM/2 ML VIAL IV ONE (21:00)
[2016-11-22] MEDS ORDERED: IV SET PRIMARY PUMP SET 1 EA INFUS.SET MC ONE (21:08)
[2016-11-22] MEDS: LEVOFLOXACIN (500MG) 500 MG TABLET PO SCH (21:32)
[2016-11-22] MEDS: Magnesium 1GM/D5W 100ML PREMIX 100 ML IV SCH ×2 (22:19→23:23)
[2016-11-22] MEDS: INSULIN DETEMIR 100 UNIT/ML CARTRIDGE SQ SCH (22:54)
[2016-11-22] MEDS: *INSULIN ASPART NOVOLOG 100 UNIT/ML CARTRIDGE SQ PRN (22:58)
[2016-11-23] MEDS: HYDROMORPHONE 1 MG/1 ML DISP.SYRIN IV PRN ×3 (00:01→18:01)
--- NOTE | 2016-11-23 00:01 | NUR ---
MS DENAE NOTES C/O LEFT LOWER LEFT FOOT PAIN. 81/0 , DILAUDID 1 MG GIVEN BY ANOTHER NURSE. PT AWARE OF SIDE EFFECT. WILL CONTINUE TO MONITOR. PLACE CALL LIGHT AT REACH.
--- NOTE | 2016-11-23 02:00 | NUR ---
CHANNEL CEMENTER OUTSOLE MACHINE/NOTES SLEEPING COMFORTABLY IN BED WITHOUT ANY ACUTE DISTRESS NOTED. KEPT HER COMFORTABLE AT ALL TIMES. WILL CONTINUE TO MONITOR. PLACE CALL LIGHT AT REACH.
[2016-11-23] MEDS: BLOOD SUGAR DIAGNOSTIC 1 EACH STRIP IN SCH ×4 (06:49→21:30)
[2016-11-23] MEDS: PANTOPRAZOLE 40 MG TABLET.DR PO SCH (06:49)
[2016-11-23] MEDS: INSULIN ASPART NOVOLOG 100 UNIT/ML CARTRIDGE SQ PRN ×2 (06:53→18:10)
--- NOTE | 2016-11-23 07:27 | NUR ---
ADMINISTRATION DEAN/CLOSING NOTES' BLOOD SUGAR CHECKED DONE 262, 12 UNITS OF NOVOLOG GIVEN . PT REFUSED TO CHANGED HER DRESSING WELL HER BEDDINGS SHE STATES LATER AND MD JUST CHANGED IT YESTERDAY. STABLE SINA THE NIGHT AND AND SLEPT WELL. ENDORSE TO AM NURSE FOR CONTINUITY OF CARE.
--- NOTE | 2016-11-23 07:30 | NUR ---
RECEIVED PT. IN AM A/O X4.VS STABLE.
[2016-11-23 08:00] VITALS: BP 95/57
[2016-11-23] MEDS: LACTOBACILLUS RHAMNOSUS GG 1 EACH CAP.SPRINK PO SCH ×2 (08:57→17:00)
[2016-11-23] MEDS: SULFAMETH/TRIMETH 800/160 MG 1 UDTAB TABLET PO SCH ×2 (08:57→21:28)
--- NOTE | 2016-11-23 10:20 | NUR ---
LES contacted [facility] and spoke to Doug who informed SW that they have a top bunk available only and pt. would have to be at the facility at 12PM. LES informed Doug pt. is unable to utilize top bunk due to a foot ulcer. LES contacted the following shelters and found no bed availability for today: [facility] , left a message; [facility] ; [facility] ; [facility] ; [facility]. LES left a message for [facility] lia[facility] at [facility] x [phone] regarding bed availability. LES met with pt. bedside to inform her that there are no alf beds available. SW to offer pt. homeless resources and provide transportation to the address pt. is going to give to SW prior to discharge. Pt. is willing to accept resources. LES to provide homeless resources and have pt. sign Homeless patient waiver form prior to discharge
[2016-11-23] MEDS: ONDANSETRON HCL/PF 4 MG/2 ML VIAL IVP PRN ×2 (10:49→18:01)
[2016-11-23] MEDS ORDERED: DIPHENHYDRAMINE HCL 12.5 MG/5 ML UDC PO PRN (11:30)
--- NOTE | 2016-11-23 11:30 | NUR ---
PICC LINE DRESSING CHG.
[2016-11-23 16:00] VITALS: BP 125/77
--- NOTE | 2016-11-23 17:30 | NUR ---
DR. WHITE IN AND DEBRIDEMENT DONE TO FOOT.
--- NOTE | 2016-11-23 18:00 | NUR ---
MED FOR PAIN AND NAUSEA X2.
[2016-11-23 20:00] VITALS: BP 104/60
--- NOTE | 2016-11-23 20:00 | NUR ---
MS USED CAR MAKE READY WORKER NOTES SEEN IN BED SITTING AWAKE AND ALERT WATCHING TV AT THIS TIME, DENIES ANY PAIN OR ANY DISCOMFORT, REQUESTED TO HAVE ONE CIGARETTE TONIGHT. DRESSING ON HER LEFT FOOT STILL DRY AND INTACT, SPOKE TO HER THAT SHE NEEDS ACCOMPANY IF SHE WANTS TO GO DOWN BUT NEED TO WAIT FOR A WHILE AFTER VASCULAR NEUROLOGIST TOMA DONE WITH HIS VITAL SIGNS. PT UNDERSTOOD WELL. WILL CONTINUE TO MONITOR. PLACE CALL LIGHT AT REACH.
[2016-11-23] MEDS: diphenhydrAMINE HCL ELIX 25 MG/10 ML UDC PO PRN (21:28)
[2016-11-23] MEDS: LEVOFLOXACIN (500MG) 500 MG TABLET PO SCH (21:28)
[2016-11-23] MEDS: INSULIN DETEMIR 100 UNIT/ML CARTRIDGE SQ SCH (21:39)
[2016-11-23] MEDS: *INSULIN ASPART NOVOLOG 100 UNIT/ML CARTRIDGE SQ PRN (21:41)
--- NOTE | 2016-11-23 22:18 | NUR ---
FERRYBOAT HELPER/NOTES- BLOOD SUGAR SPOKE TO DR TENZIN LAKHANI , BLOOD SUGAR 468, 30 UNITS OF LEVEMIR GIVEN WELL NOVOLOG 10 UNITS, SNACKS ALSO SERVED, NO NEED TO GLUCOSE RANDOM ORDERED, CONTINUE MONITORING , PER MD ORDERED. NO SIGNS OF HYPER GLYCEMIA NOTED.
[2016-11-24] MEDS: HYDROMORPHONE 1 MG/1 ML DISP.SYRIN IV PRN ×4 (00:06→22:11)
--- NOTE | 2016-11-24 00:06 | NUR ---
MS DENAE NOTES C/O LEFT FOOT PAIN , DILAUDID 1 MG GIVEN ORDERED, LEFT OFFLOAD ON PILLOWS. PT AWARE OF POSSIBLE SIDE EFFECT. SAFETY PRECAUTION IMPLEMENTED. WILL CONTINUE TO MONITOR.
--- NOTE | 2016-11-24 01:00 | NUR ---
SENIOR MECHANICAL DEVELOPMENT ENGINEER/NOTES PT AWAKE AND ALERT WALKING IN A HALLWAY, NO SIGNS OF ANY PAIN OR ANY DISCOMFORT. ENCOURAGED PT OT REST IN BED BECAUSE OF HER PAIN MEDS THAT POSSIBLE MADE HER DIZZY. SHE STATED "I'M OK ". WILL CONTINUE TO MONITOR.
[2016-11-24] MEDS: TEMAZEPAM 15 MG CAPSULE PO PRN (01:33)
--- NOTE | 2016-11-24 01:33 | NUR ---
PROCUREMENT INSPECTOR./NOTES RE- CHECK BLOOD SUGAR. RE-CHECKED BLOOD SUGAR 162, NO COVERAGES GIVEN . PT STILL AWAKE, SLEEP MEDICATION GIVEN ORDERED, NO SIGNS OF HYPO GLYCEMIA NOTED. WILL CONTINUE TO MONITOR.
[2016-11-24] MEDS: diphenhydrAMINE HCL ELIX 25 MG/10 ML UDC PO PRN ×2 (03:37→22:12)
[2016-11-24] MEDS: INSULIN ASPART NOVOLOG 100 UNIT/ML CARTRIDGE SQ PRN ×2 (06:34→17:38)
--- NOTE | 2016-11-24 06:37 | NUR ---
SKIING TEACHER/NOTES DILAUDID 1MG GIVEN AFTER BLOOD SUGAR CHECKED DONE 218, 8 UNITS OF INSULIN GIVEN. STABLE SINA THE NIGHT. NEEDS SOME ENCOURAGEMENT. DRESSING STILL DRY AND INTACT. KEPT HER WARM AND COMFORTABLE AT ALL TIMES. PLACE CALL LIGHT AT REACH. ENDORSE TO AM NURSE.
[2016-11-24 08:00] VITALS: BP 89/59
--- NOTE | 2016-11-24 08:00 | NUR ---
MS RN OPENING NOTES RECEIVED PT RESTING IN BED. NO DISTRESS NOTED. PT IS A/O X4. PT BED IS IN LOW LOCKED POSITION. IV IS INTACT AND PATENT. EDEMA NOTED ON PATIENT'S RIGHT ANKLE SECONDARY TO CELLULITIS. DRESSING WAS DRY AND INTACT. VERBALIZED THE SIGNIFICANCE OF NOT BEARING WEIGHT ON RIGHT ANKLE. WILL CONTINUE TO MONITOR FOR CHANGES THROUGHOUT SHIFT.
[2016-11-24] MEDS: LACTOBACILLUS RHAMNOSUS GG 1 EACH CAP.SPRINK PO SCH ×2 (08:24→17:36)
[2016-11-24] MEDS: PANTOPRAZOLE 40 MG TABLET.DR PO SCH (08:24)
[2016-11-24] MEDS: SULFAMETH/TRIMETH 800/160 MG 1 UDTAB TABLET PO SCH ×2 (08:24→21:33)
[2016-11-24] MEDS: BLOOD SUGAR DIAGNOSTIC 1 EACH STRIP IN SCH ×4 (08:28→21:40)
[2016-11-24 11:17] LABS: BASOPHILS # (AUTO) 0.1 /CMM (0.0-0.2); BASOPHILS % (AUTO) 0.8 % (0.0-2.0); EOSINOPHILS # (AUTO) 0.6 /CMM (0.0-0.7); EOSINOPHILS % (AUTO) 7.3 % (0.0-6.0); HEMATOCRIT 32 % (33-45); HEMOGLOBIN 10.5 g/dL (11.5-14.8); LYMPHOCYTES # (AUTO) 2.6 /CMM (0.8-4.8); LYMPHOCYTES % (AUTO) 31.8 % (20.0-44.0); MEAN CORPUSCULAR HEMOGLOBIN 27 PG (26.0-33.0); MEAN CORPUSCULAR HGB CONC 33 g/dl (31.0-36.0); MEAN CORPUSCULAR VOLUME 82 fL (82-100); MONOCYTES # (AUTO) 0.7 /CMM (0.1-1.30); NEUTROPHILS # (AUTO) 4.1 /CMM (1.8-8.9); NEUTROPHILS % (AUTO) 51.1 % (43.0-81.0); PLATELET COUNT (AUTO) 364 /CMM (150-450); RDW COEFFICIENT OF VARIATION 15.9 (11.5-15.0); RED BLOOD CELL COUNT(AUTO) 3.92 MIL/uL (4.0-5.2); WHITE BLOOD COUNT (AUTO) 8.1 K/uL (4.3-11.0)
[2016-11-24 11:32] LABS: CALCIUM, SERUM 8.6 mg/dL (8.5-10.1); MAGNESIUM 1.9 mg/dL (1.8-2.4); POTASSIUM 4.3 mmol/L (3.5-5.1)
[2016-11-24] MEDS ORDERED: IV SET PRIMARY PUMP SET 1 EA INFUS.SET MC ONE (13:47)
[2016-11-24] MEDS: IV NS 0.9% 1,000 ML IV PRN (14:05)
[2016-11-24 16:00] VITALS: BP 144/87
--- NOTE | 2016-11-24 19:30 | NUR ---
RN NOTES: RECEIVED PT RESTING IN BED. NO DISTRESS NOTED. PT IS A/O X4. PT BED IS IN LOW LOCKED POSITION. IV IS INTACT AND PATENT. EDEMA NOTED ON PATIENT'S RIGHT ANKLE SECONDARY TO CELLULITIS. DRESSING WAS DRY AND INTACT. VERBALIZED THE SIGNIFICANCE OF NOT BEARING WEIGHT ON RIGHT ANKLE. WILL CONTINUE TO MONITOR FOR CHANGES THROUGHOUT SHIFT. -RECEIVED ASLEEP ON BED, NO SIGN OF RESPIRATORY DISTRESS NOTED, DRESSING ON THE LEFT ANKLE DRY AND INTACT,EDEMA NOTED SECONDARY TO CELLULITIS,PICC LINE ON ABIDA PATENT,BED LOW AND LOCKED, CALL LIGHT WITH IN EASY REACH, FALL,SAFETY AND ASPIRATION PRECAUTION OBSERVE.
--- NOTE | 2016-11-24 19:59 | NUR ---
MS RN NOTES PATIENT IN BED RESTING NO SOB OR ACUTE DISTRESS NOTED. ALL DUE MEDICATIONS GIVEN. ALL NEEDS MET. WILL ENDORSE TO PM SHIFT. PATIENT REFUSED DRESSING TO BE CHANGED. EDUCATED ON THE IMPORTANCE OF DAILY DRESSING CHANGES. CARE ENDORSED TO PM SHIFT.
[2016-11-24 20:00] VITALS: BP 90/55
--- NOTE | 2016-11-24 20:33 | NUR ---
RN NOTES: AWAKE ASKING FOR HER PAIN MEDICATION, EXPLAINED TO HER IT IS NOT DUE YET, NON PHARMACOLOGIC INTERVENTION RENDERED,OFFERED SNACK, SITTING ON THE WHEELCHAIR COMFORTABLY.KEPT ON CLOSE VISUAL CHECK.
[2016-11-24 20:39] VITALS: BP 90/55
[2016-11-24] MEDS: LEVOFLOXACIN (500MG) 500 MG TABLET PO SCH (21:32)
[2016-11-24] MEDS: *INSULIN ASPART NOVOLOG 100 UNIT/ML CARTRIDGE SQ PRN (21:42)
--- NOTE | 2016-11-24 21:42 | NUR ---
RN NOTES: PATIENT GIVEN SNACK 30 MINUTES AGO,RBS CHECKED-445,GIVEN INSULIN PER SCALE, (ONCALL) NOTIFIED OF THE BLOOD SUGAR, PER DOCTOR WILL CONTINUE TO MONITOR, PATIENT DOES NOT MANIFEST ANY SYMPTOM OF HYPERGLYCEMIA,SHE SITTING COMFORTBALE NO ALTERED INLEVEL OF CONSCIOUSNESS, ALERT AND COHERENT. -AT 2150-LEVEMIR GIVEN SCHEDULE, WILL CONTINUE TO MONITOR FOR SIGN OF HYPER/HYPOGLYCEMIA.
[2016-11-24] MEDS: INSULIN DETEMIR 100 UNIT/ML CARTRIDGE SQ SCH (21:55)
--- NOTE | 2016-11-24 22:20 | NUR ---
RN NOTES; PATIENT COMPLAINED OF PAIN 05/09 BP-115/72 SD-86 SPO2 92% ,REQUEST FOR HER PAIN MEDICATION,AFTER GIVEN DRESSING CHANGE ON THE LEFT FOOT, TOLERATED PROCEDURE WELL, AFTER DRESSING CHANGE WANTS TO TAKE HER BENADRYL PRN FOR ITCHING, GIVEN.KEPT ON CLOSE WATCH, IVF ON GOING, CALL LIGHT WITH IN REACH.
[2016-11-25] MEDS: TEMAZEPAM 15 MG CAPSULE PO PRN (00:38)
--- NOTE | 2016-11-25 00:39 | NUR ---
RN NOTES: ABLE TO REST AND NAP IN SHORT INTERVALS, AFTER SHE PEE, SHE REQUEST FOR HER SLEEPING PILL,PAIN 10/6, SHE FEELS BETTER SHE VERBALIZE, KEPT COMFORTBALE IN BED, CALL LIGHT WITHIN REACH.
[2016-11-25] MEDS: BLOOD SUGAR DIAGNOSTIC 1 EACH STRIP IN SCH ×2 (06:31→12:04)
[2016-11-25] MEDS: INSULIN ASPART NOVOLOG 100 UNIT/ML CARTRIDGE SQ PRN ×2 (06:32→12:02)
--- NOTE | 2016-11-25 06:35 | NUR ---
RN NOTES: RBS-188,INSULIN GIVEN PER SCALE,WILL CONTINUE TO MONIOTR FOR SIGN OF HYPER/HYPOGLYCEMIA,ASLEEP AT SHORT INTERVALS, CALL LIGHT WITHIN REACH.
--- NOTE | 2016-11-25 06:42 | NUR ---
RN NOTES: ENDORSED ASLEEP TO NEXT SHIFT FOR CONTINUITY OF CARE,NO SIGN OR SOB OR ANY DISTRESS,WILL CONTINUE TO MONITOR, CALL LIGHT WITHIN REACH, BED LOW AND LOCKED.
[2016-11-25] MEDS: PANTOPRAZOLE 40 MG TABLET.DR PO SCH ×2 (07:30→08:33)
--- NOTE | 2016-11-25 08:00 | NUR ---
MS RN NOTES PATIENT IN BED RESTING NO SOB OR ACUTE DISTRESS NOTED. MIDLINE INTACT PATENT. RUNNING PRESCRIBED FLUIDS. BED IN LOW LOCKED POSITION, CALL LIGHT WITHIN REACH. WILL CONTINUE TO MONITOR.
[2016-11-25] MEDS: HYDROMORPHONE 1 MG/1 ML DISP.SYRIN IV PRN (08:33)
[2016-11-25] MEDS: SULFAMETH/TRIMETH 800/160 MG 1 UDTAB TABLET PO SCH (08:33)
[2016-11-25] MEDS: LACTOBACILLUS RHAMNOSUS GG 1 EACH CAP.SPRINK PO SCH (08:33)
[2016-11-25 09:38] VITALS: BP 118/74
[2016-11-25 10:26] LABS: BASOPHILS % (AUTO) 0.5 % (0.0-2.0); EOSINOPHILS # (AUTO) 0.4 /CMM (0.0-0.7); EOSINOPHILS % (AUTO) 5.8 % (0.0-6.0); HEMATOCRIT 36 % (33-45); HEMOGLOBIN 11.5 g/dL (11.5-14.8); LYMPHOCYTES # (AUTO) 2.3 /CMM (0.8-4.8); LYMPHOCYTES % (AUTO) 30.7 % (20.0-44.0); MEAN CORPUSCULAR HEMOGLOBIN 26 PG (26.0-33.0); MEAN CORPUSCULAR HGB CONC 32 g/dl (31.0-36.0); MEAN CORPUSCULAR VOLUME 83 fL (82-100); MONOCYTES # (AUTO) 0.6 /CMM (0.1-1.30); MONOCYTES % (AUTO) 8.3 % (2.0-12.0); NEUTROPHILS # (AUTO) 4.1 /CMM (1.8-8.9); NEUTROPHILS % (AUTO) 54.7 % (43.0-81.0); PLATELET COUNT (AUTO) 394 /CMM (150-450); RDW COEFFICIENT OF VARIATION 15.4 (11.5-15.0); RED BLOOD CELL COUNT(AUTO) 4.35 MIL/uL (4.0-5.2); WHITE BLOOD COUNT (AUTO) 7.6 K/uL (4.3-11.0)
--- NOTE | 2016-11-25 10:30 | NUR ---
MS RN NOTES PATIENT WITH ORDER TO D/C PICC LINE, PATIENT REFUSED TO BE REMOVED UNLESS SHE IS BEING DISCHARGED. RUFUS HUDSON MADE AWARE OK TO D/C TOMORROW UPON DISCHARGE. CHANGE NURSE MADE AWARE.
[2016-11-25 10:38] LABS: CALCIUM, SERUM 8.7 mg/dL (8.5-10.1); CREATININE 1.1 mg/dL (0.6-1.3); POTASSIUM 5.3 mmol/L (3.5-5.1)
[2016-11-25] MEDS ORDERED: LEVO500T15 PO (10:47)
[2016-11-25] MEDS ORDERED: SULF1TAB3 PO (10:47)
[2016-11-25] MEDS ORDERED: diphenhydrAMINE HCL 50 MG/ML VIAL IV PRN (11:00)
--- NOTE | 2016-11-25 12:00 | NUR ---
MS RN NOTES ORDERS RECEIVED FOR DISCHARGE PATIENT TO [facility] NOTED AND CARRIED OUT.
--- NOTE | 2016-11-25 12:51 | NUR ---
LES contacted several shelters for emergency group home [facility] , only group home placement is available for veterans at this time; [facility] , no beds available; [facility] , no beds available and pt. needs to be at the center at 7AM, [facility] , left a message for the [facility]. LES met with pt. bedside and informed her that there are no shelters available at this time. LES gave pt. the following resources: Homeless Resource Directory, [employer], List of Emergency shelters and housing, Outpatient mental Health clinics, [employer] and 211 brochure. Pt. would like to be discharged to [address] [facility] and will need transportation. LES gave pt. a sweatshirt per her request. Homeless Patient Waiver Form was signed by pt. and placed in the chart. LES updated HANNA Armstrong and NOE Amanda regarding discharge plan.
--- NOTE | 2016-11-25 15:50 | NUR ---
MS RN NOTES PATIENT DISCHARGED TO [facility]. IN STABLE CONDITION. NO SOB OR ACUTE DISTRESS NOTED. WOUND CARE PERFORMED, EDUCATED PATIENT ON WOUND CARE , AND DISCHARGE INSTRUCTIONS. PRESCRIPTION PROVIDED TO PATIENT. VERBALIZED UNDERSTANDING. MD AWARE OF ABNORMAL LABS. MIDLINE REMOVED WITH MINIMAL BLEEDING NOTED. ALL BELONGINGS ACCOUNTED FOR, BELONGINGS LIST SINGED. DISCHARGE PROTOCOL FOLLOWED. PROVIDED [facility] FOR TRANSPORTATION. PATIENT NONE COMPLIANT WITH MEDICAL CARE. ESCORTED TO [facility] WITH SECTION REPAIRER.
== END 2016-11-25 15:35 | disposition home or self-care (01) | DRG 380 ==
LOC: ER 18:17 → MED 23:43
PROVIDERS: ADMIT Nurse Practitioner Acute Care; ATTEND Nurse Practitioner Acute Care
PROC: 05H533Z Insertion of Infusion Device into Right Subclavian Vein, Percutaneous Approach (ICD-10-PCS; 2016-11-18)
PROC: 0JBR0ZZ Excision of Left Foot Subcutaneous Tissue and Fascia, Open Approach (ICD-10-PCS; principal; 2016-11-19)
PROC: 0JBR0ZZ Excision of Left Foot Subcutaneous Tissue and Fascia, Open Approach (ICD-10-PCS; 2016-11-23)
DX: E11.621 Type 2 diabetes mellitus with foot ulcer (principal); L97.529 Non-pressure chronic ulcer of other part of left foot with unspecified severity; L97.429 Non-pressure chronic ulcer of left heel and midfoot with unspecified severity; E11.40 Type 2 diabetes mellitus with diabetic neuropathy, unspecified; L03.116 Cellulitis of left lower limb; E11.610 Type 2 diabetes mellitus with diabetic neuropathic arthropathy; F11.20 Opioid dependence, uncomplicated; Z79.4 Long term (current) use of insulin; E78.5 Hyperlipidemia, unspecified; E87.6 Hypokalemia; G89.4 Chronic pain syndrome; I10 Essential (primary) hypertension; Z59.0 Homelessness; Z91.14 Patient's other noncompliance with medication regimen; Z89.422 Acquired absence of other left toe(s); S92.532A Displaced fracture of distal phalanx of left lesser toe(s), initial encounter for closed fracture; F17.210 Nicotine dependence, cigarettes, uncomplicated; X58.XXXA Exposure to other specified factors, initial encounter; Y92.9 Unspecified place or not applicable
CPT/HCPCS: 36415; 36569; 71010-TC; 73630-TC; 80048-TC; 80053-TC; 80061-TC; 81000-TC; 82962-TC; 83605-TC; 83735-TC; 84100-TC; 85025-TC; 87040-TC; 87070-TC; 87081-TC; 87086-TC; A4216; A4606; A6253; A6402; A6403; J1170; J1200; J1815; J1956; J2405; J3370; J3475; J7030; J7050; J7060; Q0163; Q0169; Z7610

== ENCOUNTER 2016-12-01 13:12 | Inpatient (IN) | payer MEDICAID ==
[~2016-12-01] VITALS: Ht 167.6 cm; Wt 69.4 kg
[~2016-12-01 13:12] MED LIST changes: +LEVO500T15 PO; +SULF1TAB3 PO
--- NOTE | 2016-12-01 13:28 | NUR ---
CALLED FOR TRIAGE, NOT IN WAITING ROOM
--- NOTE | 2016-12-01 14:05 | NUR ---
PT BIB SELF C/O L FOOT/ANKLE PAIN AND SWELLING X "A FEW YEARS". AMBULATORY WITH STEADY GAIT, HOWEVER REPORTS PAIN ON AMBULATION. DENIES FEVER, CHILLS. RESP EVEN UNLABORED. SKIN WARM NONDIAPHORETIC. L ANKLE NOTED WITH EVERSION AND ONLY 4 TOES, WHICH PT REPORTS TO BE BASELINE. IN ER BED 10.
[2016-12-01] MEDS ORDERED: IV NS 0.9% 1,000 ML ONE (14:10)
[2016-12-01] MEDS ORDERED: IV SET PRIMARY 1 EA INFUS.SET MC ONE (14:10)
--- NOTE | 2016-12-01 14:25 | NUR ---
UNABLE TO OBTAIN IV ACCESS AT THIS TIME
[2016-12-01 14:26] LABS: EOSINOPHILS % (AUTO) 1.4 % (0.0-6.0); MEAN CORPUSCULAR HGB CONC 33 g/dl (31.0-36.0)
[2016-12-01 14:27] LABS: BASOPHILS # (AUTO) 0.1 /CMM (0.0-0.2); BASOPHILS % (AUTO) 0.6 % (0.0-2.0); EOSINOPHILS # (AUTO) 0.2 /CMM (0.0-0.7); LYMPHOCYTES # (AUTO) 2.3 /CMM (0.8-4.8)
[2016-12-01 14:28] LABS: HEMATOCRIT 38 % (33-45); HEMOGLOBIN 12.5 g/dL (11.5-14.8); MEAN CORPUSCULAR HEMOGLOBIN 27 PG (26.0-33.0); MEAN CORPUSCULAR VOLUME 81 fL (82-100); MONOCYTES # (AUTO) 0.8 /CMM (0.1-1.30); MONOCYTES % (AUTO) 5.8 % (2.0-12.0); NEUTROPHILS # (AUTO) 10.1 /CMM (1.8-8.9); NEUTROPHILS % (AUTO) 75.2 % (43.0-81.0); PLATELET COUNT (AUTO) 401 /CMM (150-450); RDW COEFFICIENT OF VARIATION 14.7 (11.5-15.0); RED BLOOD CELL COUNT(AUTO) 4.71 MIL/uL (4.0-5.2); WHITE BLOOD COUNT (AUTO) 13.5 K/uL (4.3-11.0)
[2016-12-01] MEDS ORDERED: IV NS 0.9% 1,000 ML BAG IV ONE (14:30)
[2016-12-01 14:34] LABS: CARBON DIOXIDE 26 mmol/L (21-32); CHLORIDE 104 mmol/L (98-107); CREATININE 1.6 mg/dL (0.6-1.3); GFR 37 mL/min (>60); GLUCOSE 71 mg/dL (74-106); POTASSIUM 3.8 mmol/L (3.5-5.1); SODIUM SERUM 137 mmol/L (136-145); UREA NITROGEN, BLOOD 35 mg/dL (7-18)
[2016-12-01 14:57] LABS: LACTIC ACID 2.5 mmol/L (0.4-2.0)
--- NOTE | 2016-12-01 14:58 | NUR ---
JURGEN WOMACK AT BEDSIDE FOR IV INSERTION
[2016-12-01] MEDS ORDERED: CEFTRIAXONE 1GM BAG (ER ONLY) 1 GM/50 ML PIGGYBACK IV ONE (15:00)
--- NOTE | 2016-12-01 15:04 | NUR ---
2ND RN UNABLE TO OBTAIN IV ACCESS. NOTIFIED.
--- NOTE | 2016-12-01 15:22 | NUR ---
AT BEDSIDE FOR US GUIDED IV
--- NOTE | 2016-12-01 15:39 | NUR ---
EPIC PAGED, DRIER TENDER
--- NOTE | 2016-12-01 15:51 | NUR ---
ROBERT 18G PIV STARTED BY DR MCRAE. UNABLE TO DRAW BLOOD FROM LINE FOR CULTURES. IVF BOLUS INITIATED. BUSINESS DATABASE ANALYST CALLED FOR BLOOD DRAW. OBTAINED VERBAL ORDER FOR PICC LINE. NURSING DAIRY GRAZER PAGED FOR PICC NURSE. PER LEON MORGAN SUP, HE WILL BE HERE AT 2892.
[2016-12-01] MEDS ORDERED: diphenhydrAMINE HCL 50 MG/ML VIAL IV PRN (16:00)
[2016-12-01] MEDS ORDERED: DEXTROSE 50%-WATER 50 ML DISP.SYRIN IV PRN (16:00)
[2016-12-01] MEDS ORDERED: ONDANSETRON HCL/PF 4 MG/2 ML VIAL IVP PRN (16:00)
[2016-12-01] MEDS ORDERED: MORPHINE SULFATE INJ 2 MG/ML DISP.SYRIN IV PRN (16:00)
[2016-12-01] MEDS ORDERED: LEVOFLOXACIN 500 MG /D5W 100ML 500 MG in PREMIX 1 EA IV SCH (16:00)
[2016-12-01] MEDS ORDERED: CLINDAMYCIN IV RTU IN D5W 900 MG/50 ML PIGGYBACK IV ONE (16:00)
[2016-12-01] MEDS ORDERED: MAGNESIUM HYDROXIDE 30 ML UDC PO PRN (16:00)
--- NOTE | 2016-12-01 16:19 | NUR ---
REPORT GIVEN TO MS RN FOR ADMISSION. FIREARMS ASSEMBLY SUPERVISOR AT BEDSIDE FOR DRAW.
[2016-12-01] MEDS ORDERED: IV SET PRIMARY PUMP SET 1 EA INFUS.SET MC ONE ×2 (16:27→18:45)
[2016-12-01] MEDS ORDERED: CEFTRIAXONE 1GM BAG (ER ONLY) 50 ML IV ONE (16:27)
--- NOTE | 2016-12-01 16:44 | NUR ---
PT REFUSING IVF AND ABX AT THIS TIME DESPITE EDUCATION ON IMPORTANCE OF IVF AND ABX, STATING THAT HER IV HURTS TOO MUCH. NO S/SX INFECTION OR INFILTRATION NOTED, LIVE FLUSHES EASILY, NO BACKFLOW NOTED. NOTIFIED.
[2016-12-01 16:59] LABS: LACTIC ACID REFLEX 1.6 mmol/L (0.4-1.9)
[2016-12-01] MEDS ORDERED: LEVOFLOXACIN 500 MG /D5W 100ML 500 MG in PREMIX 1 EA IV ONE (17:00)
[2016-12-01 17:08] LABS: BILIRUBIN,DIRECT 0.1 mg/dL (0.0-0.2); BILIRUBIN,TOTAL 0.3 mg/dL (0.2-1.0)
--- NOTE | 2016-12-01 17:21 | NUR ---
MAYA, PICC RN, AT BEDSIDE
--- NOTE | 2016-12-01 17:40 | NUR ---
MAYA, PICC RN, UNABLE TO INSERT MIDLINE. HE WAS ABLE TO START A 20G LWRIST PIV. IVF AND ROCEPHIN RESUMED.
--- NOTE | 2016-12-01 18:11 | NUR ---
PT TRANSPORTED TO 319 IN STABLE CONDITION VIA WHEELCHAIR
--- NOTE | 2016-12-01 18:25 | NUR ---
MS RN NOTES RECEIVED PT FROM ER IN STABLE CONDITION. WILL WAIT FOR ADMISSION ORDERS AND BEGIN ADMISSION PROCESS.
[2016-12-01 18:40] VITALS: BP 123/72
[2016-12-01] MEDS ORDERED: SECONDARY IV SET 1 EA INFUS.SET MC ONE (18:45)
--- NOTE | 2016-12-01 18:50 | NUR ---
MS RN NOTES PT. IN STABLE CONDITION. A/O X3. NO SOB OR SIGNS OF DISTRESS NOTED. IV ON LEFT WRIST PATENT AND INTACT RUNNING LEVAQUIN INFUSION. PT. TOLERATING INFUSION WELL. NO REDNESS OR INFILTRATION NOTED. NO COMPLAINTS OF PAIN. WILL ENDORSE TO NIGHTSHIFT NURSE TO CONTINUE ADMISSION PROCESS AND MABLE.
[2016-12-01] MEDS: IV D5W 1,000 ML IV PRN (18:54)
[2016-12-01] MEDS: BLOOD SUGAR DIAGNOSTIC 1 EACH STRIP VI SCH ×2 (18:54→22:27)
[2016-12-01] MEDS: INSULIN REGULAR, HUMAN 100 UNIT/ML 3 ML VIAL SQ PRN (19:07)
--- NOTE | 2016-12-01 19:30 | NUR ---
MS RN ADMITTING NOTES: PATIENT LYING IN BED, AOX3, ON ROOM AIR, BREATHING EVEN AND UNLABORED. BREATH SOUNDS CLEAR TO AUSCULTATION. PATIENT DENIES ANY PAIN OR DISTRESS AT THIS TIME, APPEARS CALM, BUT WITHDRAWN, AND ANSWERS USING ONE WORD PER REPLY. APPEARS UNKEMPT WITH POOR HYGIENE. PIV OVER LFA G 20 INTACT AND PATENT, INFUSING WELL WITH D5W RUNNING AT 75ML/HR. NOTED MAGALY FEET WITH SWELLING AND REDNESS, WITH LEFT HEEL WITH ESCHARS AND DRYNESS. PROVIDED FOR COMFORT AND SAFETY. BED IN LOWEST AND LOCKED POSITION. SIDERAILS UP X3. CALL LIGHT WITHIN REACH. WILL CONT TO MONITOR.
[2016-12-01 20:00] VITALS: BP 128/72
[2016-12-01 20:50] VITALS: BP 128/72
[2016-12-01] MEDS: SULFAMETH/TRIMETH 800/160 MG 1 UDTAB TABLET PO SCH (22:26)
[2016-12-01] MEDS: LINEZOLID 600 MG TABLET PO SCH (22:27)
[2016-12-01] MEDS: INSULIN DETEMIR 100 UNIT/ML CARTRIDGE SQ SCH (22:43)
[2016-12-01] MEDS: *INSULIN REGULAR(HUMULIN R)HUM 100 UNIT/ML VIAL SQ PRN (22:43)
--- NOTE | 2016-12-01 23:10 | NUR ---
RN NOTES: PATIENT'S BLOOD SUGAR IS 242 MG/DL, ADMINISTERED 4 UNITS REGULAR INSULIN PER SCALE NAD 20 UNITS LEVEMIR ORDERED. SNACKS GIVEN TO PATIENT. WILL CONT TO MONITOR.,
[2016-12-02] MEDS: BLOOD SUGAR DIAGNOSTIC 1 EACH STRIP VI SCH ×4 (06:33→21:25)
[2016-12-02] MEDS: INSULIN REGULAR, HUMAN 100 UNIT/ML 3 ML VIAL SQ PRN (06:36)
--- NOTE | 2016-12-02 07:20 | NUR ---
MS RN CLOSING NOTES: PATIENT IN BED, AOX3, ON ROOM AIR, BREATHING EVEN AND UNLABORED. PATIENT COMPLAINING OF LEFT ANKLE PAIN, SCALED AT 7/10, BUT REFUSED MORPHINE IT GAVE HER A "BURNING " SENSATION BEFORE. PIV OVER LFA G 20 INTACT AND INFUSING WELL WITH D5W RUNNING AT 75 ML/HR. BLOOD SUGAR CHECKED AT 180 MG/DL, ADMINISTERED 3 UNITS REGULAR INSULIN PER SCALE. DRESSING DONE OVER LEFT HEEL WOUND. PROVIDED FOR COMFORT AND SAFETY. BED IN LOWEST NAD LOCKED POSITION, SIDERAILS UP X3. WILL ENDORSE TO AM RN FOR MABLE.
--- NOTE | 2016-12-02 07:30 | NUR ---
MS RN OPENING RECEIVED PATIENT A/OX4 DENIES SOB, DIFFICULTY BREATHING AND STATES PAIN IN LEFT LEG BUT DOES NOT WANT MORPHINE; NIGHT RN IS FOLLOWING UP WITH MD FOR PATIENT. PATIENT DRESSING INTACT AND NO DRAINAGE NOTED. PATIENT REFUSING IVF TO BE RAN, EDUCATED ON USE AND STATES UNDERSTANDING BUT STILL REFUSING. PATIENT STATES NO OTHER NEEDS AT THIS TIME AND LEFT WITH CALL LIGHT IN REACH, IN POSITION OF COMFORT. BED LOWERED AND LOCKED, RAILS UPX3 FOR SAFETY AND WILL ROUND Q2H OR LESS PER NEEDS
[2016-12-02 08:00] VITALS: BP 113/67
[2016-12-02] MEDS: INSULIN DETEMIR 100 UNIT/ML CARTRIDGE SQ SCH ×2 (08:23→21:25)
[2016-12-02] MEDS: LINEZOLID 600 MG TABLET PO SCH (08:23)
[2016-12-02] MEDS: PANTOPRAZOLE 40 MG TABLET.DR PO SCH (08:23)
[2016-12-02] MEDS: SULFAMETH/TRIMETH 800/160 MG 1 UDTAB TABLET PO SCH (08:23)
[2016-12-02] MEDS: Z GUARD REMEDY 2 OZ OINT TP PRN (08:24)
--- NOTE | 2016-12-02 09:22 | NUR ---
WOUND CARE CONSULT: PT SLEEPING SOUNDLY AT THIS TIME. WILL SEE PT PT CONDITION PERMITS. DPM CONSULT WAS MADE BY
--- NOTE | 2016-12-02 09:36 | NUR ---
MS RN NOTES MESSAGE TO DR GAMEZ OFFICE TO NOTIFY OF CONSULT
--- NOTE | 2016-12-02 11:16 | NUR ---
MS RN NOTES MESSAGE TO DR YOUNG IN RE TO PATIENT QUESTION TO DC MORPHINE AND HAVE DILAUDID INSTEAD
--- NOTE | 2016-12-02 11:30 | NUR ---
MS RN NOTES PATIENT STATES SHE HAS NO REACTION TO DILAUDID. PER MD ORDER DILAUDID 1MG Q4H PO Q4H AND DC MORPHINE PER DR YOUNG
--- NOTE | 2016-12-02 11:47 | NUR ---
Social service consult requested by [facility] for homelessness. Pt. is admitted to [facility] for charcot/ankle/foot. SW is familiar with pt. from previous admissions. Pt. was recently discharged from [facility] on November 25, 2016. Pt. is homeless and will require long term placement. SW to re-assess pt. prior to discharge for long term placement and resources.
[2016-12-02 12:50] LABS: BASOPHILS % (AUTO) 0.3 % (0.0-2.0); EOSINOPHILS # (AUTO) 0.3 /CMM (0.0-0.7); EOSINOPHILS % (AUTO) 2.3 % (0.0-6.0); HEMATOCRIT 39 % (33-45); HEMOGLOBIN 12.7 g/dL (11.5-14.8); LYMPHOCYTES # (AUTO) 2.6 /CMM (0.8-4.8); LYMPHOCYTES % (AUTO) 22.6 % (20.0-44.0); MEAN CORPUSCULAR HEMOGLOBIN 27 PG (26.0-33.0); MEAN CORPUSCULAR HGB CONC 32 g/dl (31.0-36.0); MEAN CORPUSCULAR VOLUME 82 fL (82-100); MONOCYTES # (AUTO) 0.6 /CMM (0.1-1.30); MONOCYTES % (AUTO) 5.1 % (2.0-12.0); NEUTROPHILS % (AUTO) 69.7 % (43.0-81.0); PLATELET COUNT (AUTO) 394 /CMM (150-450); RDW COEFFICIENT OF VARIATION 15.6 (11.5-15.0); RED BLOOD CELL COUNT(AUTO) 4.77 MIL/uL (4.0-5.2); WHITE BLOOD COUNT (AUTO) 11.5 K/uL (4.3-11.0)
[2016-12-02] MEDS: HYDROMORPHONE HCL 2 MG TABLET PO PRN ×3 (13:05→21:18)
[2016-12-02] MEDS: *INSULIN REGULAR(HUMULIN R)HUM 100 UNIT/ML VIAL SQ PRN ×3 (13:10→21:34)
[2016-12-02 13:44] LABS: CALCIUM, SERUM 8.9 mg/dL (8.5-10.1); CREATININE 1.2 mg/dL (0.6-1.3); MAGNESIUM 1.9 mg/dL (1.8-2.4); PHOSPHORUS 3.3 mg/dL (2.5-4.9); POTASSIUM 3.9 mmol/L (3.5-5.1)
[2016-12-02 16:00] VITALS: BP 147/84
[2016-12-02] MEDS ORDERED: LACTOBACILLUS RHAMNOSUS GG 1 EACH CAP.SPRINK PO SCH (17:00)
[2016-12-02] MEDS ORDERED: LEVOFLOXACIN (250MG) 250 MG TABLET PO SCH (17:00)
[2016-12-02] MEDS: IV D5W 1,000 ML IV PRN (17:03)
--- NOTE | 2016-12-02 19:00 | NUR ---
MS RN OPENING NOTES RECEIVED PATIENT IN BED, AWAKE/O X 3, IV SITE INTACT WITH NO S/S OF INFILTRATION NOTED. NO S/S OF BLEEDING NOTED. NO S/S OF DISTRESS, NO CHEST PAIN IN STABLE CONDITION. KEPT CLEAN DRY AND COMFORTABLE. SAFE HAZARD FREE ENVIRONMENT PROVIDED. WILL CONTINUE TO MONITOR PATIENT.
--- NOTE | 2016-12-02 19:30 | NUR ---
MS RN CLOSING PATIENT STABLE NO COMPLICATIONS NO CHANGES THROUGHOUT DAY. PATIENT STATES NO NEEDS AT THIS TIME. CALL LIGHT IN REACH, BED LOWERED AND LOCKED. ALL DUE MEDS GIVEN AND ALL NEEDS MET. PAIN CONTROLLED WITH PRN MEDICATIONS
[2016-12-02 20:00] VITALS: BP 115/67
[2016-12-02 20:10] VITALS: BP 115/67
[2016-12-03] MEDS: CLINDAMYCIN HCL 150 MG CAPSULE PO SCH ×5 (00:30→23:39)
[2016-12-03] MEDS: HYDROMORPHONE HCL 2 MG TABLET PO PRN ×3 (05:22→22:05)
[2016-12-03] MEDS: BLOOD SUGAR DIAGNOSTIC 1 EACH STRIP VI SCH ×4 (05:28→21:58)
[2016-12-03] MEDS: INSULIN REGULAR, HUMAN 100 UNIT/ML 3 ML VIAL SQ PRN (05:33)
--- NOTE | 2016-12-03 06:32 | NUR ---
MS RN CLOSING NOTES IN BED ASLEEP AND EASILY AWAKEN, SEMI FOWLERS POSITION, TOLERATING ROOM AIR SP02 97% VS STABLE IN STABLE CONDITION, SKIN WARM AND DRY TO TOUCH, AFEBRILE, ALL NURSING CARE NEEDS PROVIDED AND RENDERED, NEEDS ATTENDED AND ANTICIPATED, KEPT CLEAN AND DRY AND COMFORTABLE, BLADDER NOT DISTENDED, CONTINUE WITH CURRENT MEDICATION ORDERED, NO LATE ADVERSE REACTION NOTED/REPORTED. FLUIDS PROVIDED ORDERED. COOPERATIVE TO HER PLAN OF CARE. SAFE HAZARD FREE ENVIRONMENT MAINTAINED. TREATMENT ORDERED, GOOD SKIN CARE PROVIDED. ALL DUE MEDS WAS GIVEN. IV FLUIDS ONGOING IV SITE NO S/S OF INFILTRATION NOTED. KEPT AT LOW BED. FREQUENT VISUAL CHECK FOR SAFETY. PLAN OF CARE ORDERED. CALL LIGHT ATTENDED PROMPTLY AND KEPT AT EASY REACH. WILL ENDORSE TO THE NEXT SHIFT CONTINUE PLAN OF CARE. NO S/S OF HYPO/HYPERGLYCEMIA.
--- NOTE | 2016-12-03 07:30 | NUR ---
AM RN NOTE Received patient lying in her bed with eyes closed, arouses upon touch. No acute distress noted. Resp even and non-labored. IV site intact and patent. Bed in low locked position. Will continue to monitor.
[2016-12-03 08:00] VITALS: BP 100/63
[2016-12-03] MEDS: ACIDOPHILUS/BULGARICUS 1 EACH TAB.CHEW PO SCH ×3 (08:49→16:24)
[2016-12-03] MEDS: PANTOPRAZOLE 40 MG TABLET.DR PO SCH ×2 (08:50→09:15)
[2016-12-03] MEDS: INSULIN DETEMIR 100 UNIT/ML CARTRIDGE SQ SCH ×2 (08:52→21:57)
[2016-12-03 16:00] VITALS: BP 131/90
[2016-12-03] MEDS: IV D5W 1,000 ML IV PRN (16:25)
--- NOTE | 2016-12-03 16:50 | NUR ---
AM RN NOTE Patient notified RN that she accidently pulled her HL and throned in sharp container. Attempted to insert new site but pt refused at this time. Pt stated " I am not ready now, do it after dinner".
--- NOTE | 2016-12-03 18:31 | NUR ---
AM RN NOTE Patient awake, A/O X3 verbally responsive. No acute distress noted. Pt still refusing IV insertion at this time. Denies any pain at this time. Bed in low locked position. Will endorse care to next shift.
--- NOTE | 2016-12-03 19:15 | NUR ---
RN OPEN NOTES RECEIVED PATIENT AWAKE IN BED. A/O X3. NO SIGNS OF DISTRESS OR DISCOMFORT. BREATHING EVEN AND UNLABORED. PATIENT DOES NOT HAVE IV ACCESS AT THIS TIME WHEN ASKED, SHE REFUSES INSERTION X3 AND STATES SHE DOES NOT WANT IT DONE RIGHT NOW. DRESSING ON LEFT FOOT C/D/I. BED IN LOW LOCKED POSITION WITH SIDE RAILS X2. CALL LIGHT WITHIN REACH. WILL CONTINUE TO MONITOR.
[2016-12-03 20:00] VITALS: BP 129/74
[2016-12-03] MEDS: *INSULIN REGULAR(HUMULIN R)HUM 100 UNIT/ML VIAL SQ PRN (21:56)
--- NOTE | 2016-12-03 22:05 | NUR ---
RN NOTES ADMINISTERED DILAUDID 1MG PO FOR L FOOT PAIN 02/06. WILL CONTINUE TO MONITOR
[2016-12-04] MEDS: INSULIN REGULAR, HUMAN 100 UNIT/ML 3 ML VIAL SQ PRN ×3 (06:34→17:21)
[2016-12-04] MEDS: CLINDAMYCIN HCL 150 MG CAPSULE PO SCH ×4 (06:35→23:17)
[2016-12-04] MEDS: BLOOD SUGAR DIAGNOSTIC 1 EACH STRIP VI SCH ×4 (06:38→21:41)
--- NOTE | 2016-12-04 07:20 | NUR ---
RN CLOSING NOTES PATIENT AWAKE IN BED. A/O X3. NO SIGNS OF DISTRESS OR DISCOMFORT. BREATHING EVEN AND UNLABORED. PATIENT DOES NOT HAVE IV ACCESS AT THIS TIME REFUSED INSERTION X3. ALL NEEDS MET. NO SIGNIFICANT CHANGES THROUGHT THE NIGHT. DRESSING ON LEFT FOOT C/D/I. BED IN LOW LOCKED POSITION WITH SIDE RAILS X2. CALL LIGHT WITHIN REACH. ENDORSED TO AM SHIFT FOR MABLE.
--- NOTE | 2016-12-04 07:29 | NUR ---
AM RN NOTE Received patient sleeping comfortably in her bed, no acute distress noted. No SOB noted resp even and non-labored. Skin warm and dry to touch. Per vest busheler RN pt refused for IV insertion, will re-attempt. Bed in low locked position. Call light with in reach.
[2016-12-04 08:00] VITALS: BP 90/50
[2016-12-04] MEDS: PANTOPRAZOLE 40 MG TABLET.DR PO SCH (08:55)
[2016-12-04] MEDS: ACIDOPHILUS/BULGARICUS 1 EACH TAB.CHEW PO SCH ×3 (08:55→16:46)
[2016-12-04] MEDS: INSULIN DETEMIR 100 UNIT/ML CARTRIDGE SQ SCH ×2 (09:01→21:35)
--- NOTE | 2016-12-04 10:22 | NUR ---
KRYSTIAN RN NOTE Patient still refusing for IV insertion, notified Dr. Walker.
[2016-12-04 12:29] LABS: CALCIUM, SERUM 8.9 mg/dL (8.5-10.1); CREATININE 0.9 mg/dL (0.6-1.3); POTASSIUM 4.8 mmol/L (3.5-5.1)
[2016-12-04] MEDS: HYDROMORPHONE HCL 2 MG TABLET PO PRN ×2 (14:09→22:14)
[2016-12-04 16:08] VITALS: BP 110/71
--- NOTE | 2016-12-04 18:33 | NUR ---
AM RN NOTE Patient lying in her bed, no acute distress noted. Will endorse care to next shift.
--- NOTE | 2016-12-04 19:15 | NUR ---
RN OPEN NOTES RECEIVED PATIENT AWAKE IN BED. A/O X3. NO SIGNS OF DISTRESS OR DISCOMFORT. BREATHING EVEN AND UNLABORED. PATIENT DOES NOT HAVE IV ACCESS AT THIS TIME, PER AM SHIFT PATIENT STILL REFUSING IV INSERTION, MD AWARE. WILL RE-ATTEMPT. DRESSING ON LEFT FOOT C/D/I. BED IN LOW LOCKED POSITION WITH SIDE RAILS X2. CALL LIGHT WITHIN REACH. WILL CONTINUE TO MONITOR.
[2016-12-04 20:00] VITALS: BP 126/76
[2016-12-04] MEDS: *INSULIN REGULAR(HUMULIN R)HUM 100 UNIT/ML VIAL SQ PRN (21:36)
--- NOTE | 2016-12-04 22:14 | NUR ---
RN NOTES ADMINISTERED DILAUDID 1MG PO ORDERED FOR PAIN 8/10 IN LEFT FOOT. WILL CONTINUE TO MONITOR.
--- NOTE | 2016-12-04 22:15 | NUR ---
RN NOTES RE-ATTEMPT IV INSERTION, PATIENT REFUSED X3. PATIENT EDUCATION REINFORCED. WILL CONTINUE TO MONITOR.
[2016-12-05] MEDS: BLOOD SUGAR DIAGNOSTIC 1 EACH STRIP VI SCH ×4 (06:33→22:21)
[2016-12-05] MEDS: CLINDAMYCIN HCL 150 MG CAPSULE PO SCH ×3 (06:34→17:37)
[2016-12-05] MEDS: INSULIN REGULAR, HUMAN 100 UNIT/ML 3 ML VIAL SQ PRN ×3 (06:35→17:31)
[2016-12-05] MEDS: HYDROMORPHONE HCL 2 MG TABLET PO PRN ×2 (06:38→16:37)
--- NOTE | 2016-12-05 06:38 | NUR ---
RN NOTES ADMINISTERED DILAUDID 1MG PO ORDERED FOR PAIN 8/10 IN LEFT FOOT. WILL CONTINUE TO MONITOR.
[2016-12-05 07:27] LABS: BASOPHILS # (AUTO) 0.1 /CMM (0.0-0.2); BASOPHILS % (AUTO) 0.8 % (0.0-2.0); EOSINOPHILS # (AUTO) 0.7 /CMM (0.0-0.7); EOSINOPHILS % (AUTO) 8.7 % (0.0-6.0); HEMATOCRIT 36 % (33-45); HEMOGLOBIN 11.7 g/dL (11.5-14.8); LYMPHOCYTES # (AUTO) 3.4 /CMM (0.8-4.8); LYMPHOCYTES % (AUTO) 42.9 % (20.0-44.0); MEAN CORPUSCULAR HEMOGLOBIN 27 PG (26.0-33.0); MEAN CORPUSCULAR HGB CONC 32 g/dl (31.0-36.0); MEAN CORPUSCULAR VOLUME 83 fL (82-100); MONOCYTES # (AUTO) 0.5 /CMM (0.1-1.30); MONOCYTES % (AUTO) 5.7 % (2.0-12.0); NEUTROPHILS # (AUTO) 3.3 /CMM (1.8-8.9); NEUTROPHILS % (AUTO) 41.9 % (43.0-81.0); PLATELET COUNT (AUTO) 375 /CMM (150-450); RDW COEFFICIENT OF VARIATION 15.7 (11.5-15.0)
[2016-12-05] MEDS: PANTOPRAZOLE 40 MG TABLET.DR PO SCH (07:30)
[2016-12-05 08:00] VITALS: BP 125/73
--- NOTE | 2016-12-05 08:13 | NUR ---
RN CLOSING NOTES PATIENT AWAKE IN BED. A/O X3. NO SIGNS OF DISTRESS OR DISCOMFORT. BREATHING EVEN AND UNLABORED. PATIENT DOES NOT HAVE IV ACCESS AT THIS TIME, MD AWARE. REFUSED X3. DRESSING ON LEFT FOOT C/D/I. STATES PAIN IS TOLERABLE AT THIS TIME. ALL NEEDS MET. NO SIGNIFICANT CHANGES THROUGH THE NIGHT. BED IN LOW LOCKED POSITION WITH SIDE RAILS X2. CALL LIGHT WITHIN REACH. ENDORSED TO AM SHIFT FOR MABLE.
[2016-12-05] MEDS: ACIDOPHILUS/BULGARICUS 1 EACH TAB.CHEW PO SCH ×3 (08:36→16:39)
[2016-12-05] MEDS: INSULIN DETEMIR 100 UNIT/ML CARTRIDGE SQ SCH ×2 (08:39→22:37)
--- NOTE | 2016-12-05 12:34 | NUR ---
HANNA BUSCH NOTES FSBS IS 415MG/DL RECHECKED AGAIN 359MG/DL, PER SLIDING SCALE GAVE 15 UNITS OF REGULAR INSULIN, INFORMED DR. BROOKS, WAITING FOR A CALL A BACK, PATIENT ALERT AND ORIENTED, WITH NO S/SX OF HYPERGLYCEMIA. IN STABLE CONDITION, WILL CONTINUE TO MONITOR CLOSELY. Addendum: 12/05/16 at 1815 by KATHY ARANDA RN CORRECTION: 425MG/DL NOT 415MG/DL
--- NOTE | 2016-12-05 12:38 | NUR ---
RN MS NOTES RECEIVED A CALL FROM DR. BROOKS AND STATED TO CONTINUE WITH SLIDING SCALE, NO NEW ORDER AT THIS TIME.
--- NOTE | 2016-12-05 13:33 | NUR ---
RN MS NOTES PATIENT WITH BS 387MG/DL AFTER AN HOUR, INFORMED DR. BROOKS WITH NO NEW ORDER AT THIS TIME, PATIENT IS NON-COMPLIANT, EATING SNACKS ALMOST EVERY HOUR, JELLO AND SANDWICHES, RE-EDUCATED. PATIENT IN STABLE CONDITION AT THIS TIME. NO S/SX OF HYPERGLYCEMIA.
[2016-12-05 16:00] VITALS: BP 114/63
--- NOTE | 2016-12-05 18:48 | NUR ---
RN MS NOTES PATIENT IN BED, ALERT AND ORIENTED, NO S/SX OF HYPO/HYPERGLYCEMIA, PATIENT IS ALWAYS REQUESTING FOR SNACKS, RE-EDUCATED ABOUT CCHO DIET, PATIENT VERBALIZED UNDERSTANDING, PATIENT DENIES PAIN OR DISCOMFORT AT THIS TIME, WOUND TREATMENT DONE ORDERED, NO PIV ACCESS, DR. BROOKS AWARE, CALL LIGHT WITHIN REACH, WILL ENDORSE TO SERVICE OPERATOR FOR MABLE.
--- NOTE | 2016-12-05 19:43 | NUR ---
RN NOTE; PT IN BED AWAKE AND ALERT. BREATHING EVENLY. BI SOB. NO DISTRESS. NO C/O PAIN OR DISCOMFORT. DRESSING ON L FOOT CDI. NO S/S OF HYPO O R HYPERGLYCEMIA. NEEDS ATTENDED. CALL LIGHT WITHIN REACH,. WILL CONT TO MONITOR .
[2016-12-05 20:00] VITALS: BP 121/75
--- NOTE | 2016-12-05 22:24 | NUR ---
PAGED HEIDI MEHTA BORDER GUARD ELECTRONIC SEMICONDUCTOR PROCESSOR TO RELAYHIGH BLOOD SUGAR.WILL WAIT FOR HIS CALL BACK
--- NOTE | 2016-12-05 22:35 | NUR ---
RECEIVED A CALL BACK FROM DIETER MOLINA AND RELAYED THE HIGH BS LEVEL. HEATING ELEMENT REPAIRER W/ NNO AT THIS TIME AND TO FOLLOW THE SSI AND LEVEMIR ORDER. PLACED A NEW ORDER A CALL TO LAB TO DRAW GLUCOSE LEVEL .WILL CONT TO F/U.
[2016-12-05] MEDS: *INSULIN REGULAR(HUMULIN R)HUM 100 UNIT/ML VIAL SQ PRN (22:39)
[2016-12-05] MEDS: ZOLPIDEM TARTRATE 5 MG TABLET PO PRN (22:40)
--- NOTE | 2016-12-05 22:40 | NUR ---
HOLLI GIVEN PER PT'S REQUEST FOR INSOMNIA. WILL CONT TO MONITOR
--- NOTE | 2016-12-05 22:54 | NUR ---
PT REFUSED RANDOM GLUCOSE LEVEL DRAW . RISK VS. BENEFITS EXPLAINED TO THE PT.
[2016-12-06] MEDS: CLINDAMYCIN HCL 150 MG CAPSULE PO SCH ×4 (00:51→18:09)
--- NOTE | 2016-12-06 01:00 | NUR ---
RECHECKED PT'S BLOOD SUGAR (FSBS AT THE BED SIDE) . ACCU CHECK MACHINE SHOWS HIGH BS AND DOES NOT REGISTER THE BS. TRIED TWICE ON R AND L HAND W/ THE SAME RESULT. CHARGE NURSE SPOKE TO THE PT FOR LAB BLOOD DRAW FOR RANDOM GLUCOSE LEVEL AND PT AGREED. PLACED A CALL TO LAB AND ASKED FOR STAT GLUCOSE LEVEL. AWAITING FOR THE BRAKE OPERATOR TO DRAW BLOOD . PT REMAINED STABLE AT THIS TIME . DENIED ANY DISCOMFORT , NO ALOC. NO AMS. WILL CONT TO MONITOR,
--- NOTE | 2016-12-06 02:37 | NUR ---
REPORTED CRITICAL HIGH GLUCOSE LEVEL TO HEIDI LIAO W/ A NEW ORDER FOR 10UNITS OF REGULAR INSULIN AND FOR LABS IN AM. NOTED.
[2016-12-06] MEDS ORDERED: INSULIN REGULAR, HUMAN 100 UNIT/ML 10 ML VIAL SQ ONE (03:00)
--- NOTE | 2016-12-06 03:00 | NUR ---
ATTEMPTED TO INSERT AN IV LINE FOR THE PT IN CASE OF EMERGENCY. PT REFUSED . RISK VS. BENEFIT WERE EXPLAINED TO THE PT. WILL CONT TO MONITOR.
--- NOTE | 2016-12-06 06:18 | NUR ---
9RN NOTE; PT IN BED SLEEPING AROUSES EASILY. REMAINED UNDER CLOSE SUPERVISION FOR S/S OF HYPO OR HYPERGLYCEMIA. NO ALOC. CALL LIGHT WITHIN REACH. WILL CONT TO MONITOR AND WILL ENDORSE TO AM SHIFT FOR MABLE.
[2016-12-06] MEDS: PANTOPRAZOLE 40 MG TABLET.DR PO SCH (06:33)
[2016-12-06] MEDS: BLOOD SUGAR DIAGNOSTIC 1 EACH STRIP VI SCH ×4 (06:33→22:08)
[2016-12-06] MEDS: INSULIN REGULAR, HUMAN 100 UNIT/ML 3 ML VIAL SQ PRN ×2 (06:34→12:33)
--- NOTE | 2016-12-06 07:49 | NUR ---
RN AM NOTES RECEIVED PATIENT IN STABLE CONDITION, ASLEEP BUT EASILY AROUSABLE. INSULIN GIVEN BY NIGHT NURSE AT END OF SHIFT, BREAKFAST TO BE GIVEN SCHEDULED, PATIENT REPORTED BY NIGHT NURSE TO BE EATING LITTLE SNACKS THROUGHOUT NIGHT. EXPLAINED TO PATIENT, THAT HER FOOD INTAKE WOULD BE CONTROLLED WHILE SHE IS IN THE HOSPITAL, SHE HAS TO FOLLOW A STRICT DIET WHILE SHE IS IN THE HOSPITAL. PATIENT WAS NOT HAPPY, BUT SHE VERBALIZED UNDERSTANDING. WILL CONTINUE TO MONITOR.
[2016-12-06 08:00] VITALS: BP 111/59
[2016-12-06] MEDS: ACIDOPHILUS/BULGARICUS 1 EACH TAB.CHEW PO SCH ×3 (09:00→17:00)
--- NOTE | 2016-12-06 09:00 | NUR ---
PATIENT REFUSED PROBIOTIC. EXPLAINED ADVANTAGES AND DISADVANTAGES OF NOT TAKING PROBIOTIC, PATIENT STILL REFUSED.
[2016-12-06] MEDS: INSULIN DETEMIR 100 UNIT/ML CARTRIDGE SQ SCH ×2 (09:06→22:06)
[2016-12-06] MEDS: Z GUARD REMEDY 2 OZ OINT TP PRN (09:09)
--- NOTE | 2016-12-06 12:26 | NUR ---
ALDAIR GAMA TURNED OFF, ZP=[id number], INSULIN ADMINISTERED PER SLIDING SCALE
--- NOTE | 2016-12-06 12:38 | NUR ---
PATIENT REFUSED PROBIOTIC. EXPLAINED ADVANTAGES AND DISADVANTAGES OF NOT TAKING PROBIOTIC, PATIENT STILL REFUSED.
[2016-12-06] MEDS: HYDROMORPHONE HCL 2 MG TABLET PO PRN (12:42)
[2016-12-06 16:00] VITALS: BP 139/90
--- NOTE | 2016-12-06 18:37 | NUR ---
RN PM NOTES PATIENT WITH BLOOD SUGAR OVER 600, MD AWARE, WITH ORDERS TO CONTINUE WITH SLIDING SCALE. EDUCATED PATIENT ABOUT ADVANTAGES AND DISADVANTAGES OF SMOKING AND SNEAKING IN FOOD IN RELATIONSHIP TO BLOOD SUGAR. DENIED PATIENT PRIVLEDGE OF GOING DOWNSTAIRS TO SMOKE DUE TO HIGH BLOOD SUGAR. PATIENT AGREED NOT TO SNEAK IN FOOD AND TO DRINK WATER. WILL ENDORSE TO NEXT SHIFT.
--- NOTE | 2016-12-06 19:45 | NUR ---
MS DENAE INITIAL NOTES RECEIVED REPORT FROM AM NURSE, CHECKED PT SHE'S AWAKE AND ALERT WATCHING TV AT THIS TIME, NO SIGNS OF ANY DISCOMFORT NOTED. SHE'S AWARE THAT HER BLOOD SUGAR WAS HIGH EARLIER. EDUCATED ABOUT IT AND SHE JUST RESPONSE "OK". THEN SHE STATES SHE WANTS TO GO FOR SMOKE LATER. SPOKE TO HER THAT SHE CAN GO DOWN BUT WITH HEAD TENNIS PROFESSIONAL AND NEEDS TO USED THE WHEELCHAIR BECAUSE OF HER WOUND ON HER FOOT. DRESSING DRY AND INTACT. STILL REFUSING TO HAVE BLOOD DRAWN FOR BLOOD TEST SINCE THIS MORNING. WILL CONTINUE TO MONITOR. PLACE CALL LIGHT AT REACH.
[2016-12-06 20:37] VITALS: BP 143/82
--- NOTE | 2016-12-06 21:42 | NUR ---
PARTS ROOM CLERK/NOTES BLOOD SUGAR OVER 600 FOLLOWED PROTOCOL AND NOTIFY MD. PT AWAKE AND ALERT AND SHE'S AWARE THAT HER BLOOD SUGAR ALWAYS HIGH. NO SIGNS OF HYPER GLYCEMIA NOTED. PT STATED HER EYES SOMETIMES BLURRED .
--- NOTE | 2016-12-06 21:54 | NUR ---
BEHAVIORAL THERAPY COORDINATOR/[facility] ORDERED GIVE 20 UNITS INSULIN PLUS 20 UNITS LEVEMIR AND LAB TEST BMP.
[2016-12-06] MEDS: *INSULIN REGULAR(HUMULIN R)HUM 100 UNIT/ML VIAL SQ PRN (22:05)
[2016-12-06] MEDS: ZOLPIDEM TARTRATE 5 MG TABLET PO PRN (22:10)
[2016-12-06 23:07] LABS: CALCIUM, SERUM 8.7 mg/dL (8.5-10.1); CREATININE 1.4 mg/dL (0.6-1.3); POTASSIUM 4.6 mmol/L (3.5-5.1)
--- NOTE | 2016-12-06 23:35 | NUR ---
STEAM AND GAS TURBINE ASSEMBLER/NOTES GOT REPORT FROM LAB GLUCOSE RESULT 807, NOTIFIED MD WAITING FOR CALL BACK.
--- NOTE | 2016-12-06 23:45 | NUR ---
RUNNER OUT/NOTES SPOKE TO DR LAKHANI ,FERNANDA , GOT ORDERED AGGRESSIVE SLIDING SCALE AND GIVE ANOTHER 20 UNITS OF INSULIN.WILL CONTINUE TO MONITOR. BMP RESULT ALSO CAME OUT AND MD AWARE.
[2016-12-07] MEDS ORDERED: DEXTROSE 50%-WATER 50 ML DISP.SYRIN IV PRN
[2016-12-07] MEDS: CLINDAMYCIN HCL 150 MG CAPSULE PO SCH ×4 (00:10→17:01)
[2016-12-07] MEDS: BLOOD SUGAR DIAGNOSTIC 1 EACH STRIP IN SCH ×5 (00:22→22:15)
--- NOTE | 2016-12-07 00:22 | NUR ---
FISH AND WILDLIFE TECHNICIAN /NOTES BEFORE ADMINISTER MD ORDER TO GIVE ANOTHER 20 UNITS AFTER THE RESULT FROM LAB GLUCOSE 807 ,RE-CHECKED IT AGAIN HER BLOOD SUGAR SINA FINGER STICK CAME OUT 373, 10 UNITS OF INSULIN GIVEN PER AGGRESSIVE SLIDING SCALE MD ORDERED. PT RESTING WITH EYES CLOSED, AROUSES TO TOUCH AND FOUND OUT SHE JUST HAD MERYL CRACKERS LIKED 5 PACK PER COKE BURNER . NO SIGNS OF ANY HYPER GLYCEMIA, NO SIGNS OF ANY ACUTE DISTRESS NOTED. WILL CONTINUE TO MONITOR.
[2016-12-07] MEDS: HYDROMORPHONE HCL 2 MG TABLET PO PRN ×3 (01:02→13:32)
--- NOTE | 2016-12-07 01:02 | NUR ---
REFRESH TECHNICIAN/NOTES C/O LEFT FOOT PAIN 1 MG OF DILAUDID PO GIVEN ORDERED. OFFLOAD ON PILLOWS. WILL CONTINUE TO MONITOR.
--- NOTE | 2016-12-07 03:00 | NUR ---
GARBAGE WORKER/NOTES PT SLEEPING COMFORTABLY IN BED WITHOUT ANY ACUTE DISTRESS OR ANY DISCOMFORT NOTED, RESPIRATION EVEN AND NON-LABORED. KEPT HER WARM AND COMFORTABLE AT ALL TIMES. WILL CONTINUE TO MONITOR. PLACE CALL LIGHT AT REACH.
[2016-12-07] MEDS: PANTOPRAZOLE 40 MG TABLET.DR PO SCH (06:26)
--- NOTE | 2016-12-07 07:28 | NUR ---
MS DIRECTOR OF CONSERVATION CLOSING NOTES PT AWAKE AND ALERT , BLOOD SUGAR 97, NO SIGNS OF HYPO GLYCEMIA NOTED, DENIES ANY PAIN OR ANY DISCOMFORT. ALL DUE MEDS GIVEN AND ALL NEEDS MET. STABLE SINA THE NIGHT EVEN BLOOD SUGAR HIGH LAST NIGHT. KEPT HER WARM AND COMFORTABLE AT ALL TIMES. PLACE CALL LIGHT AT REACH. ENDORSE TO AM NURSE RAMOS FOR CONTINUITY OF CARE.
[2016-12-07] MEDS ORDERED: *INSULIN REGULAR(HUMULIN R)HUM 100 UNIT/ML VIAL SQ PRN ×2 (07:30)
--- NOTE | 2016-12-07 07:31 | NUR ---
MS RN OPENING RECEIVED PATIENT A/OX4 SLEEPING AWAKE TO LIGHT TOUCH. DRESSING ON FOOT INTACT AND CLEAN. PATIENT STATES NO NEEDS AT THIS TIME. CALL LIGHT IN REACH, BED LOWERED AND LOCKED, RAILS UPX3 FOR SAFETY. DENIES SOB, DIFFICULTY BREATHING AND PAIN CONTROLLED WITH PHARM AND NON PHARM MEASURES. WILL ROUND Q2H OR LESS PER NEEDS
[2016-12-07 08:00] VITALS: BP 125/59
--- NOTE | 2016-12-07 09:00 | NUR ---
MS RN NOTES PATIENT EDUCATED ON DIABETES MANAGEMENT AND INSULIN COVERAGE.
[2016-12-07] MEDS: ACIDOPHILUS/BULGARICUS 1 EACH TAB.CHEW PO SCH ×3 (09:03→16:37)
[2016-12-07] MEDS: GENTAMICIN 0.1% OINT 15 GM TUBE TP SCH (09:03)
[2016-12-07] MEDS: INSULIN DETEMIR 100 UNIT/ML CARTRIDGE SQ SCH ×2 (09:05→22:20)
--- NOTE | 2016-12-07 11:08 | NUR ---
LES met with pt. bedside. Pt. is A&O x 4. SW reiterated to pt. the importance of complying with her no sugar diet and not taking food from trays that increase her sugar level. Pt. understood. LES discussed discharge plan with pt. Pt. informed SW she might be able to stay at her boyfriend's place. Pt. states she will let SW know by this afternoon if she is able to stay with him. SW to follow up with pt. regarding discharge plan.
--- NOTE | 2016-12-07 11:30 | NUR ---
MS RN NOTES ACCUCHECK COMPLETED WITH STUDENT AND STUDENT PRESSED ACCEPT FOR CRITICAL LEVEL INSTEAD OF COMMENT.
--- NOTE | 2016-12-07 11:38 | NUR ---
ms rn notes PATIENT BLOOD SUGAR 519. MESSAGE TO DR BROOKS
--- NOTE | 2016-12-07 11:45 | NUR ---
MS RN NOTES PER DR BROOKS FOLLOW SLIDING SCALE AND NO NEW ORDERS
[2016-12-07] MEDS: INSULIN REGULAR, HUMAN 100 UNIT/ML 3 ML VIAL SQ PRN ×2 (11:52→16:39)
--- NOTE | 2016-12-07 13:46 | NUR ---
MS FERREIRA NOTES EDUCATED PATIENT AGAIN ON HYPERGLYCEMIA AND MANAGEMENT OF BLOOD SUGARS. PATIENT ORDERED TAMAZIGHT FOOD AFTER BEING EDUCATED ON MANAGEMENT Addendum: 12/07/16 at 1355 by RICHARD DICKSON RN MS FERREIRA NOTES TAMAZ[employer] FOOD BREAKFAST AND ROOM ATTENDANT CAME FOR PATIENT; [employer]...PER DELIVERY PERSONELL PATIENT NEEDS TO PAY FOR ORDER... AWARE PATIENT NON COMPLIANT
[2016-12-07 16:00] VITALS: BP 133/53
--- NOTE | 2016-12-07 19:30 | NUR ---
MS DENAE INITIAL NOTES RECEIVED REPORT FROM AM NURSE RICHARD , CHECKED PT SHE'S AWAKE AND ALERT WATCHING TV AT THIS TIME, DENIES ANY PAIN OR ANY DISCOMFORT. NOT IN ANY ACUTE DISTRESS . SHE'S ASKING IF HSE CAN GO FOR SMOKE . I TOLD HER MAYBE LATER BECAUSE RIGHT NOW STOCK ANALYST ARE BUSY DOING THEIR VITAL SIGNS . SHE STATE'S "OK ". WILL CONTINUE TO MONITOR. PLACE CALL LIGHT AT REACH.
[2016-12-07 20:00] VITALS: BP 144/77
[2016-12-07] MEDS: ZOLPIDEM TARTRATE 5 MG TABLET PO PRN (22:33)
--- NOTE | 2016-12-07 22:43 | NUR ---
PIN BALL MACHINE MECHANIC NOTES BLOOD SUGAR 409, LEVEMIR 20 UNITS PLUS 10 UNITS OF HUMULIN SQ ORDERED. MD AWARE. NO ADDITIONAL ORDER GIVEN. CONTINUE MONITORING.
[2016-12-08] MEDS: CLINDAMYCIN HCL 150 MG CAPSULE PO SCH ×3 (00:24→12:00)
[2016-12-08] MEDS: HYDROMORPHONE HCL 2 MG TABLET PO PRN (00:46)
--- NOTE | 2016-12-08 00:46 | NUR ---
car seat coverer /notes pt woke up and complaining of left foot pain , dilaudid 1 mg po given as ordered. kept her left foot up on pillows. will continue to monitor. place call light at reach.
--- NOTE | 2016-12-08 01:46 | NUR ---
perianesthesia rn/re-assessment notes checked pt , she's sleeping comfortably in bed without any acute distress noted. will continue to monitor.
--- NOTE | 2016-12-08 04:00 | NUR ---
head mixer/notes pt remains sleeping at this time. respiration even and non-labored. dressing of her left foot still dry and intact. will continue to monitor.
[2016-12-08] MEDS: PANTOPRAZOLE 40 MG TABLET.DR PO SCH (06:23)
[2016-12-08] MEDS: BLOOD SUGAR DIAGNOSTIC 1 EACH STRIP IN SCH ×2 (06:23→12:04)
--- NOTE | 2016-12-08 07:30 | NUR ---
MOLD CLEANING AND STORAGE SUPERVISOR CLOSING NOTES' SEEN BY DR WOO LYNNE AND DID SOME WOUND DRESSING . PT AWAKE AND ALERT , STABLE SINA THE NIGHT. ALL DUE MEDS GIVEN AND ALL NEEDS MET. BLOOD SUGAR 119 NO INSULIN GIVEN ORDERED. KEPT HER WARM AND COMFORTABLE AT ALL TIMES. WILL ENDORSE TO AM NURSE FOR CONTINUITY OF CARE.
[2016-12-08 08:00] VITALS: BP 162/89
[2016-12-08] MEDS: GENTAMICIN 0.1% OINT 15 GM TUBE TP SCH (09:00)
[2016-12-08] MEDS: ACIDOPHILUS/BULGARICUS 1 EACH TAB.CHEW PO SCH ×2 (09:32→13:00)
[2016-12-08] MEDS: INSULIN DETEMIR 100 UNIT/ML CARTRIDGE SQ SCH (09:42)
--- NOTE | 2016-12-08 10:01 | NUR ---
LES called [facility] x [phone] and spoke to Sincere who informed LES they have no availability at this time for nursing home placement. Only available beds are for veterans and people out of half-way. LES called [facility] and spoke to Radha who informed they have no beds available at this time. Addendum: 12/08/16 at 1148 by LISA SALDANA LES called [facility] x [phone] and left a voicemail message for Aye requesting a call back regarding nursing home placement.
--- NOTE | 2016-12-08 10:22 | NUR ---
LES met with pt. bedside to discuss discharge planning. Pt. informed SW that she will be able to go reside at her friend's place. Pt. will call friend and get address to discharge location. SW to follow up with pt. around noon. Addendum: 12/08/16 at 1413 by LISA SALDANA LES met with pt. to get address to location. Pt. to be discharged to [id number] [place] [address]. Pt. is going to her boyfriend's place. Pt. declined homeless resources stating she has the resources that were given to her by LES during her previous admission at [facility]. Homeless Patient waiver form signed by pt. and placed in pt's chart. Pt. to be transported via taxi to aforementioned address.
[2016-12-08] MEDS ORDERED: CLIN300C97 PO (11:08)
[2016-12-08] MEDS: INSULIN REGULAR, HUMAN 100 UNIT/ML 3 ML VIAL SQ PRN (12:08)
[2016-12-08] MEDS: HYDROCODONE/APAP 5/325MG 1 EACH TABLET PO PRN ×2 (12:10→14:48)
--- NOTE | 2016-12-08 16:05 | NUR ---
PT PENDING D/S TO [facility]RIENDS HOME...D/C INSTRUCTIONS ALONG WITH RX [facility]TB[facility] RCVD...F/U TO PCP OFFICE IN ONE WEEK UNDERSTOOD. PT WAS MEDICATED X 1 FOR PAIN WITH GOOD RESULTS THIS SHIFT...PT TO BE D./C'D PER TAXI WITH VOUCHER...NO FURTHER C/O NOTED
== END 2016-12-08 16:15 | disposition home or self-care (01) | DRG 383 ==
LOC: ER 13:16 → MED 16:14
PROVIDERS: ADMIT Internal Medicine; ATTEND Internal Medicine
PROC: 0J9R3ZZ Drainage of Left Foot Subcutaneous Tissue and Fascia, Percutaneous Approach (ICD-10-PCS; principal; 2016-12-02)
PROC: 0JBR0ZZ Excision of Left Foot Subcutaneous Tissue and Fascia, Open Approach (ICD-10-PCS; principal; 2016-12-02)
PROC: 0JBR0ZZ Excision of Left Foot Subcutaneous Tissue and Fascia, Open Approach (ICD-10-PCS; 2016-12-06)
DX: L03.116 Cellulitis of left lower limb (principal); N17.0 Acute kidney failure with tubular necrosis; E11.42 Type 2 diabetes mellitus with diabetic polyneuropathy; E11.22 Type 2 diabetes mellitus with diabetic chronic kidney disease; E44.1 Mild protein-calorie malnutrition; M86.9 Osteomyelitis, unspecified; E11.621 Type 2 diabetes mellitus with foot ulcer; E11.610 Type 2 diabetes mellitus with diabetic neuropathic arthropathy; F17.200 Nicotine dependence, unspecified, uncomplicated; L97.529 Non-pressure chronic ulcer of other part of left foot with unspecified severity; E11.65 Type 2 diabetes mellitus with hyperglycemia; E11.319 Type 2 diabetes mellitus with unspecified diabetic retinopathy without macular edema; E11.51 Type 2 diabetes mellitus with diabetic peripheral angiopathy without gangrene; F17.210 Nicotine dependence, cigarettes, uncomplicated; E11.69 Type 2 diabetes mellitus with other specified complication; I12.9 Hypertensive chronic kidney disease with stage 1 through stage 4 chronic kidney disease, or unspecified chronic kidney disease; N18.9 Chronic kidney disease, unspecified; Z59.0 Homelessness; K21.9 Gastro-esophageal reflux disease without esophagitis; Z91.19 Patient's noncompliance with other medical treatment and regimen; Z79.4 Long term (current) use of insulin; Z89.429 Acquired absence of other toe(s), unspecified side; H54.8 Legal blindness, as defined in USA; G62.9 Polyneuropathy, unspecified; G89.29 Other chronic pain; L97.429 Non-pressure chronic ulcer of left heel and midfoot with unspecified severity
CPT/HCPCS: 36415; 73630-TC; 80048-TC; 80061-TC; 82247-TC; 82248-TC; 82947-TC; 82962-TC; 83605-TC; 83735-TC; 84100-TC; 85025-TC; 87040-TC; 87070-TC; 87081-TC; A4216; A4606; A6402; A6403; A6407; J0696; J1815; J1956; J2270; J3490; J7030; J7070; Z7610

== ENCOUNTER 2018-03-23 11:20 | Inpatient (IN) | payer MEDICAID, OTHER ==
[~2018-03-23] VITALS: Ht 167.6 cm; Wt 70.8 kg
[~2018-03-23 11:20] MED LIST changes: +CLIN300C11 PO; -LEVO500T15 PO; -SULF1TAB3 PO
--- NOTE | 2018-03-23 11:25 | NUR ---
PATIENT TO ED DT ABDOMINAL PAIN SINCE LAST NIGHT. PATIENT REPORTED VOMITTING GROUND COFFEE MATERIAL LAST NIGHT. PATIENT IS AFEBRILE AT THIS TIME. NOT IN DISTRESS.
[2018-03-23] MEDS ORDERED: ONDANSETRON HCL/PF 4 MG/2 ML VIAL ONE (11:47)
[2018-03-23] MEDS ORDERED: ONDANSETRON HCL/PF - ER 4 MG/2 ML VIAL IV ONE (12:00)
[2018-03-23] MEDS ORDERED: CEFTRIAXONE 1GM BAG (ER ONLY) 1 GM/50 ML PIGGYBACK IV ONE (12:00)
[2018-03-23] MEDS ORDERED: IV NS 0.9% 1,000 ML BAG IV ONE (12:00)
[2018-03-23] MEDS ORDERED: PANTOPRAZOLE 80 MG in IV NS 0.9% 100 ML IV ONE (12:00)
--- NOTE | 2018-03-23 12:07 | NUR ---
CALLED NURSING FURRIER DESIGNER FOR TELE BED
[2018-03-23] MEDS ORDERED: DOCU100C36 PO (12:09)
[2018-03-23] MEDS ORDERED: HYDR-3972 PO (12:09)
[2018-03-23] MEDS ORDERED: BLOO-668 IN (12:09)
[2018-03-23] MEDS ORDERED: OMEP40CA37 PO (12:09)
[2018-03-23] MEDS ORDERED: PYRI50TA9 PO (12:09)
[2018-03-23] MEDS ORDERED: ONDA4TAB10 PO (12:09)
[2018-03-23 12:43] LABS: APPEARANCE,URINE Clear (CLEAR); BILIRUBIN,URINE Negative (NEGATIVE); BLOOD, URINE Moderate Ery/uL (NEGATIVE); COLOR,URINE Yellow (YELLOW); KETONES,URINE 40 (NEGATIVE); LEUKOCYTE ESTERASE ,URINE Negative (NEGATIVE); NITRITE, URINE Negative (NEGATIVE); PROTEIN,URINE Negative (NEGATIVE); UGLUCOSE 500 MG/DL mg/dL (NEGATIVE); UROBILINOGEN,URINE 0.2 EU/dL (0.2)
[2018-03-23 13:03] LABS: BACTERIA,URINE Rare /HPF (None Seen); SQUAMOUS EPITHELIAL CELL,UR Rare /HPF (None Seen); WBC,URINE 0-2 /HPF (0-3)
[2018-03-23 13:09] LABS: BASOPHILS % (AUTO) 0.2 % (0.0-2.0); HEMOGLOBIN 9.7 g/dL (11.5-14.8); MEAN CORPUSCULAR VOLUME 76 fL (82-100); PLATELET COUNT (AUTO) 431 /CMM (150-450)
[2018-03-23 13:12] LABS: HEMATOCRIT 29 % (33-45); LYMPHOCYTES # (AUTO) 1.9 /CMM (0.8-4.8); LYMPHOCYTES % (AUTO) 16.6 % (20.0-44.0); MEAN CORPUSCULAR HEMOGLOBIN 25 PG (26.0-33.0); MEAN CORPUSCULAR HGB CONC 33 g/dl (31.0-36.0); MONOCYTES # (AUTO) 0.6 /CMM (0.1-1.30); MONOCYTES % (AUTO) 5.4 % (2.0-12.0); NEUTROPHILS # (AUTO) 8.6 /CMM (1.8-8.9); NEUTROPHILS % (AUTO) 76.8 % (43.0-81.0); RDW COEFFICIENT OF VARIATION 17.3 (11.5-15.0); RED BLOOD CELL COUNT(AUTO) 3.81 MIL/uL (4.0-5.2); WHITE BLOOD COUNT (AUTO) 11.3 K/uL (4.3-11.0)
[2018-03-23] MEDS ORDERED: MORPHINE SULFATE INJ 4 MG/ML DISP.SYRIN ONE (13:13)
[2018-03-23 13:23] LABS: INR 0.91 (0.85-1.15)
[2018-03-23 13:24] LABS: ALANINE AMINOTRANSFERASE 24 U/L (12-78); ALBUMIN 2.6 g/dL (3.4-5.0); ALKALINE PHOSPHATASE 99 U/L (46-116); ASPARTATE AMINOTRANSFERASE 28 U/L (15-37); BILIRUBIN,DIRECT 0.1 mg/dL (0.0-0.2); BILIRUBIN,TOTAL 0.2 mg/dL (0.2-1.0); CALCIUM, SERUM 8.9 mg/dL (8.5-10.1); CARBON DIOXIDE 25 mmol/L (21-32); CHLORIDE 99 mmol/L (98-107); CREATININE 0.9 mg/dL (0.6-1.3); LIPASE 100 U/L (73-393); POTASSIUM 5.4 mmol/L (3.5-5.1); SODIUM SERUM 129 mmol/L (136-145); TOTAL PROTEIN, SERUM 6.9 g/dL (6.4-8.2); UREA NITROGEN, BLOOD 17 mg/dL (7-18)
[2018-03-23 13:27] LABS: GLUCOSE 473 mg/dL (74-106); TROPONIN I < 0.017 ng/mL (0.00-0.056)
--- NOTE | 2018-03-23 13:29 | NUR ---
CALLED [facility] FOR PANEL CALL AND DR HERNANDEZ WAS PAGED
[2018-03-23] MEDS ORDERED: MORPHINE SULFATE INJ 2 MG/ML DISP.SYRIN IV ONE (13:30)
--- NOTE | 2018-03-23 13:40 | NUR ---
PT IS ASSIGNED TO [facility]#: [id number], DX: UPPER GI BLEED, AMD ACCEPTING MD: DR YOUNG.
--- NOTE | 2018-03-23 13:57 | NUR ---
REPORT GIVEN TO HANNA LAYNE FOR MABLE
[2018-03-23] MEDS ORDERED: INSULIN LISPRO/ASPART 100 UNIT/ML CARTRIDGE SQ ONE (14:00)
--- NOTE | 2018-03-23 14:10 | NUR ---
PATIENT TRANSPORTED TO TELE. S
--- NOTE | 2018-03-23 14:20 | NUR ---
RN NOTES PT WAS BROUGHT UP TO THE FLOOR IN STABLE CONDITION. PT ON RA, RESPIRATIONS ARE EVEN AND UNLABORED. IV ON R SHOULDER INTACT AND SL. NO SIGNS OF DISTRESS NOTED. SAFETY MEASURES ARE IN PLACE, CALL LIGHT IS IN REACH. WILL CONTINUE TO MONITOR.
[2018-03-23 14:30] VITALS: BP 127/81
--- NOTE | 2018-03-23 14:44 | NUR ---
RN NOTES PT IS REFUSING TO HAVE TELE MONITOR LEADS ON AT THIS TIME BECAUSE THEY ARE IRRITATING TO HER SKIN. TELEGRAPHIC TYPEWRITER OPERATOR MADE AWARE.
[2018-03-23 16:00] VITALS: BP 97/71
[2018-03-23] MEDS ORDERED: ONDANSETRON HCL/PF 4 MG/2 ML VIAL IVP PRN (16:00)
[2018-03-23] MEDS ORDERED: Z GUARD REMEDY 2 OZ OINT TP PRN (16:00)
[2018-03-23] MEDS ORDERED: MORPHINE SULFATE INJ 2 MG/ML DISP.SYRIN IV PRN (16:00)
[2018-03-23] MEDS ORDERED: MAG HYDROX/AL HYDROX/SIMETH 30 ML UDC PO PRN (16:00)
[2018-03-23] MEDS ORDERED: ZOLPIDEM TARTRATE 5 MG TABLET PO PRN (16:00)
[2018-03-23] MEDS ORDERED: DEXTROSE 50%-WATER 50 ML DISP.SYRIN IV PRN (16:30)
[2018-03-23] MEDS: ENOXAPARIN SODIUM 40 MG/0.4 ML DISP.SYRIN SQ SCH (17:00)
[2018-03-23] MEDS: MAGNESIUM HYDROXIDE 30 ML UDC PO PRN (17:03)
[2018-03-23] MEDS: DOCUSATE SODIUM 100 MG CAPSULE PO SCH (17:03)
[2018-03-23] MEDS: BLOOD SUGAR DIAGNOSTIC 1 EACH STRIP IN SCH ×2 (17:03→20:25)
[2018-03-23] MEDS: IV NS 0.9% 1,000 ML IV PRN (17:03)
[2018-03-23] MEDS: MORPHINE SULFATE INJ 4 MG/ML DISP.SYRIN IV PRN ×2 (17:04→21:10)
[2018-03-23] MEDS: INSULIN REGULAR, HUMAN 100 UNIT/ML 3 ML VIAL SQ PRN (17:49)
[2018-03-23] MEDS ORDERED: LEVOFLOXACIN 500 MG /D5W 100ML 500 MG in PREMIX 1 EA IV SCH (18:00)
--- NOTE | 2018-03-23 18:46 | NUR ---
RN NOTES PT IS SITTING UP IN BED, AWAKE AND ALERT. PT ON RA, RESPIRATIONS ARE EVEN AND UNLABORED. IV ON R SHOULDER INTACT AND RUNNING NS @ 75ML/HR. ALL MEDS WERE GIVEN ORDERED AND PT NEEDS MET. NO SIGNS OF DISTRESS NOTED. SAFETY MEASURES ARE IN PLACE, CALL LIGHT IS IN REACH. WILL ENDORSE TONIGHT FOR CONTINUITY OF CARE.
[2018-03-23] MEDS: diphenhydrAMINE HCL 50 MG/ML VIAL IV PRN (18:53)
--- NOTE | 2018-03-23 19:32 | NUR ---
PAINTING DEPARTMENT SUPERVISOR OPENING NOTES: RECEIVED PT AND IS ON ROOM AIR AND TOLERATING WELL. PT WALKING DOWN THE FERRER. PT IS A/OX4. PT HAS IV AND IS BEING INFUSED WITH IV NS AT 75ML/HR. PT REFUSING TO HAVE TELE BOX APPLIED ON HER. WILL ATTEMPT TO TRY AGAIN AT ANOTHER TIME. CALL LIGHT WITHIN PT'S REACH. BED KEPT IN LOW, LOCKED POSITION, AND SIDE RAILS X 2UP. WILL CONTINUE TO MONITOR PT.
[2018-03-23 20:00] VITALS: BP 101/61
--- NOTE | 2018-03-23 20:53 | NUR ---
COMMAND CENTER ANALYST NOTES: PT SIGNED SMOKING CONSENT. PT WENT DOWN FOR SMOKE BREAK WITH ADRIANNA MONTESINOS.
[2018-03-23] MEDS: INSULIN GLARGINE, 100 UNIT/ML CARTRIDGE SQ SCH (20:58)
--- NOTE | 2018-03-23 20:59 | NUR ---
ENROLLMENT SERVICES VICE PRESIDENT NOTES: BLOOD SUGAR WAS 94. LANTUS INSULIN HELD. PT ALSO ON ACCUCHEKS Q4. WILL MONITOR BLOOD SUGAR.
[2018-03-23] MEDS: PANTOPRAZOLE 40 MG VIAL IV SCH (21:01)
[2018-03-24] VITALS: BP 113/75
[2018-03-24] MEDS: BLOOD SUGAR DIAGNOSTIC 1 EACH STRIP IN SCH ×6 (00:04→20:47)
[2018-03-24] MEDS: diphenhydrAMINE HCL 50 MG/ML VIAL IV PRN ×3 (01:12→14:19)
[2018-03-24] MEDS: MORPHINE SULFATE INJ 4 MG/ML DISP.SYRIN IV PRN ×4 (01:13→14:19)
--- NOTE | 2018-03-24 01:17 | NUR ---
FILM CASTING OPERATOR NOTES: PT COMPLAINING OF L FOOT PAIN 03/09. PT WAS ADMINISTERED MORPHINE AND BENADRYL VIA IV. WILL CONTINUE TO MONITOR PT.
--- NOTE | 2018-03-24 03:42 | NUR ---
SYSTEMS DEVELOPMENT MANAGER NOTES: PT KEEPS DISCONNECTING HERSELF FROM HER IV. EXPLAINED TO PT RISKS AND BENEFITS. WHEN ROUNDING, PT STILL FOUND DISCONNECTED.
[2018-03-24 04:00] VITALS: BP 100/62
[2018-03-24] MEDS: INSULIN REGULAR, HUMAN 100 UNIT/ML 3 ML VIAL SQ PRN ×2 (04:11→16:41)
--- NOTE | 2018-03-24 04:18 | NUR ---
PIPE ASSEMBLY WORKER NOTES: BLOOD SUGAR WAS 289. 12 UNITS OF REGULAR INSULIN WAS ADMINISTERED. SNACKS PROVIDED AT BEDSIDE. PT CONNECTED BACK TO IV NS AT 75ML/HR.
--- NOTE | 2018-03-24 05:42 | NUR ---
CATTLE ALLEY WORKER NOTES: PT COMPLAINING OF L FOOT PAIN 03/09. PT WAS ADMINISTERED MORPHINE 2MG VIA IV. ELEVATED LEGS AND ADVISED PT TO ESPECIALLY ELEVATE L LEG TO HELP DECREASE WITH SWELLING.
--- NOTE | 2018-03-24 07:24 | NUR ---
IT SUPPORT ANALYST CLOSING NOTES: ALL NEEDS WERE ATTENDED AND ANTICIPATED FOR. PT ON ROOM AIR AND TOLERATING WELL. PT HAS IV AND IS BEING INFUSED WITH IV NS AT 75ML/HR. L LEG ELEVATED. PT REFUSING TELE BOX SHE IS "ALLERGIC TO THE ELECTRODES". SHE IS STAND BY FOR. NOW. CALL LIGHT WITHIN PT'S REACH . BED KEPT IN LOW, LOCKED POSITION, AND SIDE RAILS X 2UP. ENDORSED TO AM NURSE FOR MABLE.
--- NOTE | 2018-03-24 07:39 | NUR ---
HYDROGEN CELL TENDER OPENING NOTES RECEIVED PATIENT IN STABLE CONDITION. IN NO APPARENT DISTRESS. BEDSIDE RAILS ARE UPX2. BED IS LOCKED AND LOWERED. CALL LIGHT IS WITHIN REACH. IV LINE IS INTACT AND PATENT. WILL CONTINUE TO MONITOR.
[2018-03-24 08:00] VITALS: BP 112/73
[2018-03-24] MEDS: DOCUSATE SODIUM 100 MG CAPSULE PO SCH ×2 (08:36→16:30)
[2018-03-24] MEDS: PYRIDOXINE HCL 50 MG TABLET PO SCH (08:36)
[2018-03-24] MEDS: PANTOPRAZOLE 40 MG VIAL IV SCH (08:36)
[2018-03-24] MEDS: INSULIN GLARGINE, 100 UNIT/ML CARTRIDGE SQ SCH ×2 (08:51→20:56)
--- NOTE | 2018-03-24 08:52 | NUR ---
PATIENTS BLOOD SUGAR IS 77. NON ADMINISTERED LANTUS. PATIENT IS ON BLOOD SUGAR MONITOR EVER 4 HOURS. WILL CONTINUE TO MONITOR BLOOD SUGAR. PATIENT CONTINUES TO DISCONNECT HERSELF FROM HER IV FLUIDS. EXPLAINED PATIENT THE RISKS AND BENEFITS. PATIENT CONTINUES TO DISCONNECT HERSELF.
[2018-03-24 09:20] LABS: BASOPHILS % (AUTO) 0.6 % (0.0-2.0); EOSINOPHILS % (AUTO) 3.1 % (0.0-6.0); HEMATOCRIT 32 % (33-45); HEMOGLOBIN 9.7 g/dL (11.5-14.8); LYMPHOCYTES # (AUTO) 2.6 /CMM (0.8-4.8); LYMPHOCYTES % (AUTO) 29.5 % (20.0-44.0); MEAN CORPUSCULAR HEMOGLOBIN 24 PG (26.0-33.0); MEAN CORPUSCULAR HGB CONC 31 g/dl (31.0-36.0); MEAN CORPUSCULAR VOLUME 79 fL (82-100); MONOCYTES # (AUTO) 0.8 /CMM (0.1-1.30); NEUTROPHILS % (AUTO) 57.8 % (43.0-81.0); PLATELET COUNT (AUTO) 468 /CMM (150-450); RDW COEFFICIENT OF VARIATION 18.5 (11.5-15.0); RED BLOOD CELL COUNT(AUTO) 4.03 MIL/uL (4.0-5.2); WHITE BLOOD COUNT (AUTO) 8.7 K/uL (4.3-11.0)
[2018-03-24 09:33] LABS: CREATININE 0.9 mg/dL (0.6-1.3); MAGNESIUM 1.9 mg/dL (1.8-2.4); PHOSPHORUS 3.1 mg/dL (2.5-4.9); POTASSIUM 4.2 mmol/L (3.5-5.1)
[2018-03-24 09:48] LABS: THYROID STIMULATING HORMONE 2.275 uIU/mL (0.358-3.74)
[2018-03-24 13:15] LABS: URIC ACID 4.7 mg/dL (2.6-7.2)
[2018-03-24] MEDS ORDERED: SOD FERRIC GLUC 125 MG in IV NS 0.9% 100 ML IV SCH (14:00)
--- NOTE | 2018-03-24 14:00 | NUR ---
NON ADMINISTERED FERRLECIT. PATIENT DOES NOT HAVE A GOOD IV ACCESS. MEDSURG NURSE ATTEMPTED TO START AN IV AND WAS UNSUCCESSFUL. CALLED ER NURSE TO START IV LINE AND WAS UNSUCCESSFUL. CALLED ICU NURSE TO START IV AND WAS UNSUCCESSFUL. NOTIFIED DR. YOUNG THAT PATIENT DOES NOT HAVE A GOOD IV ACCESS SITE. PER DR. YOUNG, SHE WILL CHANGE PATIENTS MEDICATIONS TO ORAL ROUTE. NO MIDLINE INSERTION ORDER AT THIS TIME.
[2018-03-24 16:00] VITALS: BP 110/72
[2018-03-24] MEDS ORDERED: ONDANSETRON 4 MG TAB.RAPDIS SL PRN (16:00)
[2018-03-24] MEDS ORDERED: BISACODYL SUPP (10 MG) 10 MG/SUPP.RECT SUPP.RECT RC PRN (16:00)
[2018-03-24] MEDS: FERROUS SULFATE (325 MG) 325 MG/TAB TABLET PO SCH (16:30)
[2018-03-24] MEDS: LEVOFLOXACIN (500MG) 500 MG TABLET PO SCH (16:30)
[2018-03-24] MEDS: BISACODYL (5 MG) 5 MG TABLET.DR PO SCH (16:31)
[2018-03-24] MEDS: METOCLOPRAMIDE HCL 10 MG TABLET PO SCH ×2 (17:28→23:15)
[2018-03-24] MEDS: HYDROMORPHONE HCL 2 MG TABLET PO PRN ×2 (18:36→23:15)
--- NOTE | 2018-03-24 19:00 | NUR ---
MS RN CLOSING NOTES PATIENT IS IN STABLE CONDITION. IN NO APPARENT DISTRESS. BEDSIDE RAILS ARE UPX2. BED IS LOCKED AND LOWERED. CALL LIGHT IS WITHIN REACH. IV LINE IS INTACT AND PATENT. WILL ENDORSE CARE TO FUNERAL PRE ARRANGEMENT COUNSELOR NURSE FOR MABLE.
--- NOTE | 2018-03-24 19:20 | NUR ---
RECEIVED PATIENT IN STABLE CONDITION A/O X4. NO APPARENT DISTRESS NOTED. BEDSIDE RAILS ARE UPX2. BED IS LOCKED AND LOWERED. CALL LIGHT IS WITHIN REACH.PT IV MEDS CHANGED ON PO MEDS. PT DOES NOT HAVE IV LINE, PT HARD STICK. WILL ATTEND TO PUT IV LATER. PT WILL CONTINUE TO MONITOR
[2018-03-24 20:00] VITALS: BP 112/70
--- NOTE | 2018-03-24 20:47 | NUR ---
called certified pediatric nurse practitioner dr.Tim English to notify pt recent BS 422. per dr English 20 units of Lantus and 16 units of Regular insulin was given. will continue to monitor
[2018-03-24] MEDS: ENOXAPARIN SODIUM 40 MG/0.4 ML DISP.SYRIN SQ SCH (21:00)
[2018-03-24] MEDS ORDERED: INSULIN REGULAR, HUMAN 100 UNIT/ML 10 ML VIAL SQ ONE (21:00)
--- NOTE | 2018-03-24 21:00 | NUR ---
PT REFUSED LOVENOX INJECTION. RISK AND BENEFITS EXPLAINED. [place] REFUSED. MEDICATION RETURNED
[2018-03-24] MEDS: MUPIROCIN OINT 2% 22 GM TUBE SCH (21:15)
[2018-03-24] MEDS: PANTOPRAZOLE 40 MG TABLET.DR PO SCH (21:16)
[2018-03-24] MEDS: MAGNESIUM HYDROXIDE 30 ML UDC PO PRN (21:31)
[2018-03-24] MEDS: diphenhydrAMINE HCL 50 MG CAPSULE PO PRN (21:31)
--- NOTE | 2018-03-24 21:35 | NUR ---
received call from lab. pt Stat glucose result is 399.
--- NOTE | 2018-03-25 00:31 | NUR ---
pt bs reading is 36. Dextrose ingestion was given rep protocol. will recheck in 30 min.
--- NOTE | 2018-03-25 00:35 | NUR ---
pt refused STAT glucose test. pt stated that Accu-check is enough . Explained to patient that blood glucose test is more accurate but pt still refusing .
[2018-03-25] MEDS: BLOOD SUGAR DIAGNOSTIC 1 EACH STRIP IN SCH ×6 (01:03→20:43)
--- NOTE | 2018-03-25 01:03 | NUR ---
BS READING IS 98. WILL CONTINUE TO MONITOR
--- NOTE | 2018-03-25 02:43 | NUR ---
CONTINUE TO MONITOR PT. LAST BS READING 46. ORANGE JUICE GIVEN PER PROTOCOL . NEXT DEXTROSE CAN BE GIVEN AT 0431AM. PT A/O X4. WILL CONTINUE TO MONITOR
[2018-03-25] MEDS: HYDROMORPHONE HCL 2 MG TABLET PO PRN ×4 (04:17→18:15)
--- NOTE | 2018-03-25 04:48 | NUR ---
PT BS = 67
--- NOTE | 2018-03-25 04:50 | NUR ---
ATTEMPTED TO START AN IV AND WAS UNSUCCESSFUL. PT DOES NOT HAVE GOOD IV ASSESS. NO MIDLINE ORDER AT THIS TIME
[2018-03-25] MEDS: METOCLOPRAMIDE HCL 10 MG TABLET PO SCH ×3 (06:00→17:17)
--- NOTE | 2018-03-25 06:36 | NUR ---
MS RN CLOSING NOTES PT SITTING IN BED, A/O X4. LAST BS READING AT 0630 WAS 134. INSULIN IS NOT GIVEN DUE TO NIGHT LOW READING. NO DISTRESS NOTED, NO COMPLAINS OF PAIN AT THIS TIME.PT ALL IV ANTIBIOTICS CHANGED ON ORAL, PT DOES NOT HAVE GOOD IV ASSESS. SAFETY PRECAUTIONS IN PLACE , CALL LIGHT WITHIN REACH. WILL ENDORSE TO NEXT SHIFT FOR MABLE.
--- NOTE | 2018-03-25 07:20 | NUR ---
RN INITIAL NOTES PATIENT RESTING IN BED. NONLABORED BREATHING NOTED ON ROOM AIR. PATIENT AOX4. NO IV ACCESS AT THE MOMENT. PATIENT REFUSING REINSERTION. EDUCATED PATIENT ON PROTOCOL, EDUCATED PATIENT OF S/S OF HYPOGLYCEMIA, VERBALIZING UNDERSTANDING. STILL REFUSING IV INSERTION, STATING "I WANT TO REST NOW" WILL CONTINUE TO OFFER. BED IN LOWEST LOCKED POSITION CALL LIGHT WITHIN REACH.
[2018-03-25 08:00] VITALS: BP 114/69
--- NOTE | 2018-03-25 08:00 | NUR ---
AHNNA NOTES ASSESSMENT RIGHT EYE BLIND ACCORDING TO PATIENT Addendum: 03/25/18 at 1036 by ROBBY DICKERSON RN Amended: Links added.
[2018-03-25] MEDS: BISACODYL (5 MG) 5 MG TABLET.DR PO SCH (09:44)
[2018-03-25] MEDS: FERROUS SULFATE (325 MG) 325 MG/TAB TABLET PO SCH ×2 (09:44→17:18)
[2018-03-25] MEDS: DOCUSATE SODIUM 100 MG CAPSULE PO SCH ×2 (09:45→17:18)
[2018-03-25] MEDS: PANTOPRAZOLE 40 MG TABLET.DR PO SCH ×2 (09:47→20:44)
[2018-03-25] MEDS: PYRIDOXINE HCL 50 MG TABLET PO SCH (09:47)
[2018-03-25] MEDS: MUPIROCIN OINT 2% 22 GM TUBE SCH ×2 (09:48→20:44)
[2018-03-25] MEDS: INSULIN GLARGINE, 100 UNIT/ML CARTRIDGE SQ SCH ×3 (09:52→20:51)
[2018-03-25 11:55] LABS: BASOPHILS # (AUTO) 0.1 /CMM (0.0-0.2); EOSINOPHILS % (AUTO) 3.1 % (0.0-6.0); HEMATOCRIT 32 % (33-45); HEMOGLOBIN 9.9 g/dL (11.5-14.8); LYMPHOCYTES # (AUTO) 2.8 /CMM (0.8-4.8); LYMPHOCYTES % (AUTO) 22.6 % (20.0-44.0); MEAN CORPUSCULAR HEMOGLOBIN 25 PG (26.0-33.0); MEAN CORPUSCULAR HGB CONC 31 g/dl (31.0-36.0); MEAN CORPUSCULAR VOLUME 79 fL (82-100); MONOCYTES # (AUTO) 0.7 /CMM (0.1-1.30); MONOCYTES % (AUTO) 5.4 % (2.0-12.0); NEUTROPHILS # (AUTO) 8.3 /CMM (1.8-8.9); NEUTROPHILS % (AUTO) 67.9 % (43.0-81.0); PLATELET COUNT (AUTO) 350 /CMM (150-450); RDW COEFFICIENT OF VARIATION 18.1 (11.5-15.0); RED BLOOD CELL COUNT(AUTO) 4.02 MIL/uL (4.0-5.2); WHITE BLOOD COUNT (AUTO) 12.2 K/uL (4.3-11.0)
[2018-03-25 12:08] LABS: CALCIUM, SERUM 8.7 mg/dL (8.5-10.1); CREATININE 0.9 mg/dL (0.6-1.3); PHOSPHORUS 3.5 mg/dL (2.5-4.9); POTASSIUM 5.2 mmol/L (3.5-5.1)
[2018-03-25] MEDS: INSULIN REGULAR, HUMAN 100 UNIT/ML 3 ML VIAL SQ PRN (12:20)
--- NOTE | 2018-03-25 12:42 | NUR ---
IV LINE GAUGE 24 STARTED ON RIGHT HAND PATENT AND INTACT.
[2018-03-25] MEDS: IV NS 0.9% 1,000 ML IV PRN (13:06)
[2018-03-25 13:08] VITALS: BP 131/82
[2018-03-25] MEDS: diphenhydrAMINE HCL 50 MG CAPSULE PO PRN ×2 (13:14→20:44)
[2018-03-25] MEDS: MAGNESIUM HYDROXIDE 30 ML UDC PO PRN (14:38)
[2018-03-25 16:00] VITALS: BP 99/64
--- NOTE | 2018-03-25 16:27 | NUR ---
PATIENT REFUSING BLOOD DRAW FOR HGB AND HCT. BENEFITS AND RISKS EXPLAINED MULTIPLE TIMES PATIENT STILL REFUSING.
[2018-03-25] MEDS: LEVOFLOXACIN (500MG) 500 MG TABLET PO SCH (17:18)
[2018-03-25 18:32] VITALS: BP 108/62
--- NOTE | 2018-03-25 19:24 | NUR ---
RN CLOSING NOTES PATIENT RESTING IN BED. NONLABORED BREATHING NOTED ON ROOM AIR. PATIENT AOX4. IV ACCESS ON RIGHT HAND GAUGE 24 PATENT AND INTACT. NO VOMITING NOTED. PATIENT ABLE TO HAVE A BOWEL MOVEMENT AFTER ADMINISTRATION OF MILK OF MAGNESIA. PATIENT REFUSING TO HAVE WOUND CHANGED THROUGHOUT SHIFT. EDUCATED ON INFECTION CONTROL MULTIPLE TIMES. PATIENT AGREED NOW TO HAVE LEFT HEEL CLEANSED WITH NS AND WRAPPED WITH GAUZE AND KERLIX NO SEIZURES NOTED DURING SHIFT. PODIATRY CONSULT CONTACTED PER DR YOUNG. PATIENT TO BE SEEN TOMORROW BY DR HERNANDEZ. DR YOUNG NOTIFIED BED IN LOWEST LOCKED POSITION CALL LIGHT WITHIN REACH.
--- NOTE | 2018-03-25 19:59 | NUR ---
MS RN OPENING NOTES PATIENT RESTING IN BED. PT ON ROOM AIR AND AOX4. IV ACCESS ON RIGHT HAND GAUGE 24 PATENT AND INTACT.SAFETY PRECAUTIONS IN PLACE AND CALL LIGHT WITHIN REACH. WILL CONTINUE TO MONITOR.
[2018-03-25 20:00] VITALS: BP_SYST 117; BP_DIAS 50; BP_DIAS 60
[2018-03-25] MEDS: ENOXAPARIN SODIUM 40 MG/0.4 ML DISP.SYRIN SQ SCH (21:00)
[2018-03-25 21:53] LABS: OCCULT BLOOD STOOL NEGATIVE (NEGATIVE)
[2018-03-26] MEDS: HYDROMORPHONE HCL 2 MG TABLET PO PRN ×3 (00:08→10:30)
[2018-03-26] MEDS: METOCLOPRAMIDE HCL 10 MG TABLET PO SCH ×3 (00:09→12:42)
[2018-03-26] MEDS: BLOOD SUGAR DIAGNOSTIC 1 EACH STRIP IN SCH ×5 (00:21→12:51)
[2018-03-26] MEDS: INSULIN REGULAR, HUMAN 100 UNIT/ML 3 ML VIAL SQ PRN (05:00)
--- NOTE | 2018-03-26 06:40 | NUR ---
RN CLOSING NOTES PATIENT RESTING IN BED. NO DISTRESS NOTED,PT ON ROOM AIR. PATIENT AOX4. IV ACCESS ON RIGHT HAND GAUGE 24 PATENT AND INTACT. LEFT HEEL CLEANSED WITH NS AND WRAPPED WITH GAUZE AND KERLIX . PICTURES ARE TAKEN AN PLACED IN THE CHART.BS LEVEL WAS WNR ALL NIGHT EXCEPT LAST READING AT 0500 AM -282. PRN REGULAR INSULIN 12 UNITS WAS GIVEN PER SLIDING SCALE. PT FREQUENTLY ASKING FOR PAIN MEDICATION DUE TO LEFT FOOT PAIN. WILL ENDORSE TO NEXT SHIFT FOR MABLE.
--- NOTE | 2018-03-26 07:15 | NUR ---
RN INITIAL NOTES PATIENT RESTING IN BED. NONLABORED BREATHING NOTED ON ROOM AIR. PATIENT AOX4. IV ACCESS ON RIGHT HAND GAUGE 24 PATENT AND INTACT. BED IN LOWEST LOCKED POSITION. CALL LIGHT WITHIN REACH WILL CONTINUE TO MONITOR
[2018-03-26 08:00] VITALS: BP 94/60
--- NOTE | 2018-03-26 08:00 | NUR ---
LEFT EYE BLINDNESS ON LEFT EYE PER PATIENT Addendum: 03/26/18 at 0945 by ROBBY DICKERSON RN Amended: Links added.
[2018-03-26] MEDS: INSULIN GLARGINE, 100 UNIT/ML CARTRIDGE SQ SCH ×2 (09:00)
[2018-03-26] MEDS: DOCUSATE SODIUM 100 MG CAPSULE PO SCH (09:03)
[2018-03-26] MEDS: BISACODYL (5 MG) 5 MG TABLET.DR PO SCH (09:04)
[2018-03-26] MEDS: FERROUS SULFATE (325 MG) 325 MG/TAB TABLET PO SCH (09:04)
[2018-03-26] MEDS: PANTOPRAZOLE 40 MG TABLET.DR PO SCH (09:04)
[2018-03-26] MEDS: PYRIDOXINE HCL 50 MG TABLET PO SCH (09:04)
[2018-03-26] MEDS: MUPIROCIN OINT 2% 22 GM TUBE SCH (09:09)
--- NOTE | 2018-03-26 09:52 | NUR ---
INSULIN GLARGINE HELD DUE TO 93 BLOOD SUGAR
[2018-03-26 10:14] VITALS: BP 150/89
[2018-03-26 10:59] LABS: BASOPHILS % (AUTO) 0.5 % (0.0-2.0); EOSINOPHILS % (AUTO) 1.9 % (0.0-6.0); HEMATOCRIT 31 % (33-45); HEMOGLOBIN 9.7 g/dL (11.5-14.8); LYMPHOCYTES # (AUTO) 2.2 /CMM (0.8-4.8); LYMPHOCYTES % (AUTO) 24.2 % (20.0-44.0); MEAN CORPUSCULAR HEMOGLOBIN 25 PG (26.0-33.0); MEAN CORPUSCULAR HGB CONC 31 g/dl (31.0-36.0); MEAN CORPUSCULAR VOLUME 79 fL (82-100); MONOCYTES # (AUTO) 0.7 /CMM (0.1-1.30); MONOCYTES % (AUTO) 7.3 % (2.0-12.0); NEUTROPHILS % (AUTO) 66.1 % (43.0-81.0); PLATELET COUNT (AUTO) 404 /CMM (150-450); RED BLOOD CELL COUNT(AUTO) 3.91 MIL/uL (4.0-5.2); WHITE BLOOD COUNT (AUTO) 9.1 K/uL (4.3-11.0)
--- NOTE | 2018-03-26 12:15 | NUR ---
Socials service consult requested by Dr. Lopez for homelessness. Pt. is a 37 year old female who was admitted to [facility] for Upper GI Bleed. LES met with pt. bedside. SW is familiar with pt. from previous admissions. Pt. is alert and oriented x 4. Pt. is ambulatory but has a wheelchair as well due to a wound on her foot. Pt. appears disheveled. Pt. is cooperative and friendly with SW during the assessment. Pt. resides at [facility] located at [address] [place] [address] in [facility]. Pt. states she last drank alcohol a couple of months ago. Pt's alcohol of choice is vodka. 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 Pt. is interested in referrals to drug treatment programs. LES gave pt. the following referrals: [facility] located at [address] [place] [address] ; [facility] located at [id number] [place] [address] in [place]. [place] and [facility] located at [address] [address] . LES encouraged pt. to attend one of the drug treatment programs. Pt. denies suicidal and homicidal ideations and visual / auditory hallucinations at this time. Pt. denies any psychiatric diagnoses. Homeless patient waiver form was signed by pt. and placed in pt's chart. LES updated Med Surg NOE Eric regarding pt's discharge plan. LES also informed NOE Eric the pt. will need money for the bus and to inform nursing lead section supervisor Briana. No other social service needs are required at this time. SW is available, if needed.
[2018-03-26 12:39] LABS: CALCIUM, SERUM 8.6 mg/dL (8.5-10.1); CREATININE 0.9 mg/dL (0.6-1.3); PHOSPHORUS 4.6 mg/dL (2.5-4.9); POTASSIUM 4.5 mmol/L (3.5-5.1)
[2018-03-26] MEDS: diphenhydrAMINE HCL 50 MG CAPSULE PO PRN (12:42)
--- NOTE | 2018-03-26 12:51 | NUR ---
212 AFTER LUNCH CONSUMPTION
--- NOTE | 2018-03-26 12:55 | NUR ---
LAB REPORTED BLOOD SUGAR LEVEL OF 50 AT 1150 BLOOD DRAW- PATIENT WAS OFFERED CRANBERRY JUICE AT 1206. PATIENT DRANK THE JUICE. NO SIGNS OF HYPOGLYCEMIA WERE NOTED AT THAT TIME
[2018-03-26 13:00] VITALS: BP 132/80
--- NOTE | 2018-03-26 13:00 | NUR ---
RN NOTES: NO ELECTROLYTE REPLACEMENT NEEDED PER MD CBC AND BMP WNL
--- NOTE | 2018-03-26 14:38 | NUR ---
PATIENT DISCHARGED HOME PER DR YOUNG'S ORDERS. PATIENT STABLE. PATIENT EDUCATED ON EXISTCARE INSTRUCTIONS, MEDICATIONS, PRESCRIPTION OF LEVAQUIN AND OMPERAZOLE , WELL IMPORTANCE TO FOLLOW UP WITH DR VALVERDE FOR LEFT HEEL. PATIENT REFUSING DRESSING CHANGE PRIOR TO DISCHARGE. INFECTION CONTROL EDUCATED WITH PATIENT. PATIENT ACCEPTED GAUZE AND KERLIX FOR FUTURE DRESSING CHANGES PATIENT EDUCATED ON MRSA. BACTROBAN GIVEN TO PATIENT PER ORDERS. PATIENT PROVIDED WITH 4 $ FROM NURSING COUNTERPERSON'S OFFICER, WITNESSED BY SOPHIA MONTESINOS PATIENT NOTIFIED ME THAT SHE IS ABLE TO GO TO WHERE SHE RESIDES VIA BUS. ALL BELONGINGS GIVEN TO PATIENT INCLUDING HER WHEELCHAIR IV LINE REMOVED PRIOR TO DC SKIN PICTURES PLACED IN CHART S/S OF HYPOGLYCEMIA DISCUSSED WITH PATIENT. PATIENT VERBALIZED UNDERSTANDING OF ALL TEACHING PATIENT ACCOMPANIED TO HOSPITAL EXIST BY YAMEL
== END 2018-03-26 14:50 | disposition home or self-care (01) | DRG 241 ==
LOC: ER 11:21 → TELE 14:07 → MED 03-24 09:48
PROVIDERS: ADMIT Internal Medicine; ATTEND Internal Medicine
DX: K29.01 Acute gastritis with bleeding (principal); E10.621 Type 1 diabetes mellitus with foot ulcer; E10.610 Type 1 diabetes mellitus with diabetic neuropathic arthropathy; E10.65 Type 1 diabetes mellitus with hyperglycemia; F11.20 Opioid dependence, uncomplicated; E87.1 Hypo-osmolality and hyponatremia; T39.395A Adverse effect of other nonsteroidal anti-inflammatory drugs [NSAID], initial encounter; Z87.11 Personal history of peptic ulcer disease; Z88.6 Allergy status to analgesic agent; Z88.5 Allergy status to narcotic agent; Z88.0 Allergy status to penicillin; Z88.8 Allergy status to other drugs, medicaments and biological substances; Z79.4 Long term (current) use of insulin; Z79.899 Other long term (current) drug therapy; K21.9 Gastro-esophageal reflux disease without esophagitis; F17.200 Nicotine dependence, unspecified, uncomplicated; L97.509 Non-pressure chronic ulcer of other part of unspecified foot with unspecified severity; N20.0 Calculus of kidney; G89.29 Other chronic pain; D50.9 Iron deficiency anemia, unspecified; I10 Essential (primary) hypertension; D72.829 Elevated white blood cell count, unspecified; L03.90 Cellulitis, unspecified; K59.00 Constipation, unspecified; Z59.0 Homelessness; K76.0 Fatty (change of) liver, not elsewhere classified
CPT/HCPCS: 36415; 71045-TC; 80048-TC; 80076-TC; 81000-TC; 82272-TC; 82306; 82728-TC; 82746; 82947-TC; 82962-TC; 83540-TC; 83605-TC; 83615-TC; 83690-TC; 83735-TC; 84100-TC; 84443-TC; 84484-TC; 84550-TC; 84703-TC; 85025-TC; 85045-TC; 85730-TC; 86850-TC; 87040-TC; 87070-TC; 87081-TC; A4216; A4606; A6402; A6403; C9113; J0696; J1200; J1650; J1815; J1956; J2270; J2405; J2916; J7030; J8597; Q0163; Z7610

== ENCOUNTER 2019-02-17 15:30 | Inpatient (IN) | payer OTHER ==
[~2019-02-17] VITALS: Ht 167.6 cm; Wt 66.7 kg
[~2019-02-17 15:30] MED LIST changes: +BLOO-668 IN; -CLIN300C11 PO; +DOCU100C36 PO; +OMEP40CA37 PO; +ONDA4TAB10 PO; +PYRI-7 PO
--- NOTE | 2019-02-17 15:45 | NUR ---
"Abdominal pain/nausea/vomiting. Hx gastritis threw up/spit blood today Foot surg was done 6mos ago been having issuesw/bolts worse today" Patient a/ox4, breathing even and unlabored, no sob noted. Attached to the monitor, waiting for md mathew.
[2019-02-17] MEDS ORDERED: IV NS 0.9% 1,000 ML BAG IV ONE ×2 (17:00→19:00)
[2019-02-17] MEDS ORDERED: FAMOTIDINE/PF INJ 20 MG/2 ML VIAL IV ONE ×2 (17:00→17:06)
[2019-02-17 17:42] LABS: APPEARANCE,URINE SL CLOUDY (CLEAR); BILIRUBIN,URINE NEGATIVE (NEGATIVE); BLOOD, URINE NEGATIVE Ery/uL (NEGATIVE); COLOR,URINE YELLOW (YELLOW); KETONES,URINE NEGATIVE (NEGATIVE); LEUKOCYTE ESTERASE ,URINE NEGATIVE (NEGATIVE); NITRITE, URINE NEGATIVE (NEGATIVE); PROTEIN,URINE NEGATIVE (NEGATIVE); UGLUCOSE 3+ mg/dL (NEGATIVE); UROBILINOGEN,URINE 0.2 EU/dL (0.2)
[2019-02-17] MEDS ORDERED: MORPHINE SULFATE INJ 4 MG/ML DISP.SYRIN ONE (18:00)
[2019-02-17] MEDS ORDERED: MORPHINE SULFATE INJ 2 MG/ML DISP.SYRIN IV ONE (18:00)
[2019-02-17] MEDS ORDERED: ONDANSETRON HCL/PF 4 MG/2 ML VIAL ONE (18:00)
[2019-02-17] MEDS ORDERED: ONDANSETRON HCL/PF 4 MG/2 ML VIAL IVP ONE (18:00)
[2019-02-17 18:11] LABS: BACTERIA,URINE None seen /HPF (None Seen); RBC,URINE 0-2 /HPF (0-2); WBC,URINE 0-2 /HPF (0-3); YEAST,URINE Few /HPF (None Seen)
[2019-02-17 18:38] LABS: ALBUMIN 3.1 g/dL (3.4-5.0); BILIRUBIN,TOTAL 0.3 mg/dL (0.2-1.0); CALCIUM, SERUM 9.3 mg/dL (8.5-10.1); CREATININE 1.4 mg/dL (0.6-1.3); TOTAL PROTEIN, SERUM 9.4 g/dL (6.4-8.2)
[2019-02-17 18:51] LABS: POTASSIUM 6.2 mmol/L (3.5-5.1)
[2019-02-17] MEDS ORDERED: AMLO10TA4 PO (18:53)
[2019-02-17] MEDS ORDERED: SULF1TAB48 PO (18:53)
[2019-02-17] MEDS ORDERED: CEPH-570 PO (18:53)
[2019-02-17] MEDS ORDERED: ZOLP10TA2 PO (18:53)
--- NOTE | 2019-02-17 18:56 | NUR ---
MIDLINE REQUESTED FROM NURSING FREIGHT SEPARATOR, ETA OF MIDLINE NURSE WITHIN AN HOUR. Addendum: 02/17/19 at 1937 by SCOOTER ATTEMPTED TO INSERT PERIPHERAL IV MULTIPLE TIMES AND WAS ABLE TO INSERT RIGHT HAND G22 IV. IV LINE INFILTRATED AND REMOVED.
[2019-02-17 19:01] LABS: BASOPHILS # (AUTO) 0.1 /CMM (0.0-0.2); BASOPHILS % (AUTO) 0.5 % (0.0-2.0); EOSINOPHILS % (AUTO) 2.1 % (0.0-6.0); HEMATOCRIT 33 % (33-45); HEMOGLOBIN 10.6 g/dL (11.5-14.8); LYMPHOCYTES # (AUTO) 2.1 /CMM (0.8-4.8); LYMPHOCYTES % (AUTO) 16.6 % (20.0-44.0); MEAN CORPUSCULAR HGB CONC 32 g/dl (31.0-36.0); MEAN CORPUSCULAR VOLUME 82 fL (82-100); MONOCYTES # (AUTO) 0.6 /CMM (0.1-1.30); NEUTROPHILS # (AUTO) 9.7 /CMM (1.8-8.9); NEUTROPHILS % (AUTO) 75.8 % (43.0-81.0); PLATELET COUNT (AUTO) 529 /CMM (150-450); RED BLOOD CELL COUNT(AUTO) 4.09 MIL/uL (4.0-5.2); WHITE BLOOD COUNT (AUTO) 12.8 K/uL (4.3-11.0)
--- NOTE | 2019-02-17 19:10 | NUR ---
PT RECEIVED FROM HANNA CHAVEZ FOR MABLE. PT IS AAOX4. NAD NOTED. PT AMBULATED TO BATHROOM
--- NOTE | 2019-02-17 19:29 | NUR ---
PICC LINE NURSE AT BEDSIDE FOR INSERTION.
[2019-02-17] MEDS ORDERED: INSULIN REGULAR, HUMAN 100 UNIT in IV NS 0.9% 99 ML IV SCH ×2 (19:30)
--- NOTE | 2019-02-17 19:34 | NUR ---
CONSENT SIGNED BY PT. INFORMED CONSENT OBTAINED BY PA.
--- NOTE | 2019-02-17 20:00 | NUR ---
2L NS NON ADMIN D/T NO IV LINE AVAILABLE. JAMA MAZARIEGOS AWARE. AWAITING MID LINE INSERTION
[2019-02-17 20:33] LABS: ABG BASE EXCESS -2.6 mmol/L; ABG OXYGEN SATURATION 94.1 % (92.0-98.5); ABG PCO2 40.2 mmHg (35.0-45.0); ABG PH 7.366 (7.350-7.450); ABG PO2 85.8 mmHg (75.0-100.0); AaDO2 15.8 mmHg; COHb 2.2 % (0.5-1.5); MetHb 0.3 % (0.0-1.5); O2Hb 91.7 % (94.0-97.0)
--- NOTE | 2019-02-17 20:41 | NUR ---
PT SPOKE WITH DR. COELLO, AND IS REFUSING THE INSERTION OF CENTRAL LINE. PT UNDERSTANDS HER DECISION, RISK HAVE BEEN EXPLAINED TO PT REGARDING HER CONDITION.
[2019-02-17] MEDS ORDERED: IV NS 0.9% 1,000 ML IV PRN ×2 (21:02)
[2019-02-17] MEDS ORDERED: IV PREMIX D5 1/2NS + KCL 1,000 ML IV PRN (21:02)
--- NOTE | 2019-02-17 21:11 | NUR ---
PT DECLINED HAVING A CENTRAL LINE DESPITE EXPLANATION OF RISK AND BENEFITS. PT WILL BE ADMITTED TO THE HOSPITAL
[2019-02-17] MEDS ORDERED: MAG HYDROX/AL HYDROX/SIMETH 30 ML UDC PO PRN (21:30)
[2019-02-17] MEDS ORDERED: Z GUARD REMEDY 2 OZ OINT TP PRN (21:30)
[2019-02-17] MEDS ORDERED: HYDROCODONE/APAP 5/325MG 1 EACH TABLET PO PRN (21:30)
[2019-02-17] MEDS ORDERED: ZOLPIDEM TARTRATE 5 MG TABLET PO PRN (21:30)
[2019-02-17] MEDS ORDERED: ACETAMINOPHEN 325 MG TABLET PO PRN (21:30)
[2019-02-17] MEDS ORDERED: MAGNESIUM HYDROXIDE 30 ML UDC PO PRN (21:30)
[2019-02-17] MEDS ORDERED: ONDANSETRON HCL/PF 4 MG/2 ML VIAL IVP PRN (21:30)
[2019-02-17] MEDS ORDERED: INSULIN REGULAR, HUMAN 100 UNIT/ML 10 ML VIAL ONE (21:39)
[2019-02-17] MEDS ORDERED: INSULIN REGULAR, HUMAN 100 UNIT/ML 10 ML VIAL SQ ONE (22:00)
--- NOTE | 2019-02-17 22:19 | NUR ---
REPORT GIVEN TO HANNA VICENTE FOR MABLE. PT TO 253
--- NOTE | 2019-02-17 22:25 | NUR ---
CLERICAL CLERK RCD PT FROM ER A/O x4; INFILTRATED IV ON RIGHT HAND. PT DECLINES IV ACCESS AND TO BE PLACED ON THE MONITOR. CALL PLACED TO .
--- NOTE | 2019-02-17 22:30 | NUR ---
PT TRANSPORTED TO UNIT WITH EMT AN DRN AT BEDSIDE. NAD NOTED DURING TRANSPORT.
--- NOTE | 2019-02-17 22:55 | NUR ---
RFID SYSTEMS ENGINEER PT DECLINES TO BE MONITORED. Addendum: 02/17/19 at 2255 by CINTHIA MACHADO RN Amended: Links added.
--- NOTE | 2019-02-17 23:35 | NUR ---
ELECTROMECHANICAL ASSEMBLER BLOOD GLUCOSE 566; CALL PLACED TO DR SHETH FOR FURTHER ORDERS PT DECLINES IV ACCESS FOR THE INSULIN DRIP.
--- NOTE | 2019-02-17 23:36 | NUR ---
CARD SERVICES SPECIALIST CARE ENDORSED TO LADARIUS FERREIRA.
--- NOTE | 2019-02-17 23:46 | NUR ---
CLOTH DYEING RANGE TENDER NOTE PT IN BED ASLEEP, AROUSABLE. NO DISTRESS OR DISCOMFORT NOTED. PT IS REMAIN WITH NO IV ACCESS AND CONTINUE TO REFUSE IV INSERTION. REPORT RECEIVED FROM CINTHIA CHARGE NURSE. WAITING FOR DR SHETH TO GIVE ORDERS DUE TO HIGH BS. UNABLE TO GIVE ANY IV MED DUE TO NO IV ACCESS. MD IS AWARE. PT ALSO DID NOT ALLOW TO BE MONITOR ON TELE. CONTINUE TO MONITOR HER.
--- NOTE | 2019-02-18 00:07 | NUR ---
SHOPPING INVESTIGATOR NOTE DR SHETH CALLED BACK, INFORMED HIM REGARDING PT BS 566 AND STILL NO IV ACCESS ON THE PT. GAVE NEW ORDER TO DO ACCUCHECK Q4 ORDER NOTED AND CARRIED OUT.
[2019-02-18] MEDS: INSULIN REGULAR, HUMAN 100 UNIT/ML 3 ML VIAL SQ PRN ×3 (00:18→23:50)
[2019-02-18] MEDS ORDERED: DEXTROSE 50%-WATER 50 ML DISP.SYRIN IV PRN (00:30)
[2019-02-18] MEDS ORDERED: INSULIN REGULAR, HUMAN 100 UNIT/ML 3 ML VIAL ONE (00:35)
[2019-02-18] MEDS: BLOOD SUGAR DIAGNOSTIC 1 EACH STRIP IN SCH ×6 (01:10→23:56)
--- NOTE | 2019-02-18 01:11 | NUR ---
SURGICAL PHYSICIAN ASSISTANT NOTE DR SHETH VISITED THE PT.
--- NOTE | 2019-02-18 01:21 | NUR ---
INVENTORY SPECIALIST NOTE WENT TO INSERT THE IV LINE, PT REFUSED AGAIN, STATES "COME BACK LATER".
--- NOTE | 2019-02-18 04:14 | NUR ---
REGIONAL REHABILITATION DIRECTOR NOTE PT REFUSE LABS TO BE WITHDRAWN, STATES "COME BACK LATER". CONTINUE TO REFUSE IV INSERTION.
[2019-02-18 04:47] LABS: BASOPHILS # (AUTO) 0.1 /CMM (0.0-0.2); BASOPHILS % (AUTO) 0.7 % (0.0-2.0); EOSINOPHILS % (AUTO) 4.2 % (0.0-6.0); HEMATOCRIT 35 % (33-45); HEMOGLOBIN 11.6 g/dL (11.5-14.8); LYMPHOCYTES # (AUTO) 3.2 /CMM (0.8-4.8); LYMPHOCYTES % (AUTO) 28.1 % (20.0-44.0); MEAN CORPUSCULAR HGB CONC 33 g/dl (31.0-36.0); MEAN CORPUSCULAR VOLUME 80 fL (82-100); MONOCYTES # (AUTO) 0.7 /CMM (0.1-1.30); MONOCYTES % (AUTO) 6.3 % (2.0-12.0); NEUTROPHILS # (AUTO) 6.8 /CMM (1.8-8.9); NEUTROPHILS % (AUTO) 60.7 % (43.0-81.0); PLATELET COUNT (AUTO) 539 /CMM (150-450); RED BLOOD CELL COUNT(AUTO) 4.41 MIL/uL (4.0-5.2); WHITE BLOOD COUNT (AUTO) 11.2 K/uL (4.3-11.0)
[2019-02-18 04:49] LABS: CREATININE 1.1 mg/dL (0.6-1.3); MAGNESIUM 2.4 mg/dL (1.8-2.4)
--- NOTE | 2019-02-18 05:24 | NUR ---
SURFACE GRINDER TENDER NOTE PT IN BED ASLEEP, AROUSABLE. INFORMED AGAIN DR SHETH THAT PT CONTINUE TO REFUSE IV INSERTION. PER MD FOLLOW UP IN AM MD. AND INSERTION OF IV LINE IN AM THEN CONTINUE THE IVF ORDERED.
--- NOTE | 2019-02-18 06:23 | NUR ---
MENTAL HEALTH ASSOCIATE NOTE PT IN BED ASLEEP, AROUSABLE. NO DISTRESS OR DISCOMFORT NOTED. DENIES PAIN. REMAIN WITH NO IV ACCESS. WILL ENDORSE TO DAY SHIFT NURSE FOR CONTINUE TO CARE. SIDE RAILS UP X 2 AND CALL LIGHT WITHIN REACH.
--- NOTE | 2019-02-18 06:57 | NUR ---
BUSINESS ATTORNEY PT CONTINUED TO DECLINE IV ACCESS AND TO BE PLACED ON THE MONITOR. PT STATES SHE IS ALLERGIC TO THE ECG LEADS.
--- NOTE | 2019-02-18 07:00 | NUR ---
ICE CREAM VAULT WORKER NOTE PT REFUSED SKIN ASSESSMENT. INFORMED DAY SHIFT NURSE TO FOLLOW UP.
--- NOTE | 2019-02-18 07:00 | NUR ---
MANAGER OF ENVIRONMENTAL SERVICES OPENING NOTES RECEIVED PT LYING ON BED,SLEEPING.ALERT/ORIENTED X4.REFUSED TO PLACED TELE MONITORING AND IV ACCESS PER SANDER PORTABLE MACHINE NURSE RN LADARIUS.WILL CONTINUE TO FOLLOW UP WITH THE PT.CAN AMBULATE WITH MINIMAL SUPERVISION.ON ROOM AIR,TOLERATING WELL.NO SOB AND ACUTE DISTRESS NOTED.BED IS IN LOW POSITION AND LOCKED.CALL LIGHT IS WITHIN REACH.WILL CONTINUE TO MONITOR THE PT BLOOD SUGAR AND MABLE.
--- NOTE | 2019-02-18 08:00 | NUR ---
APPRENTICE EMBALMER NOTES BLOOD SUGAR CHECKED VIA FINGERSTICK.IT IS 21.RECHECKED IT IS 25.PT HAS NO S/S HYPOGLYCEMIA EXCEPT MILD WEAKNESS.PT REFUSED TO INSERT AN IV ACCESS TO ADMINISTER DEXTROSE IV PUSH.OFFERED X3,STILL REFUSED.PT IS READY TO EAT THE BREAKFAST AND WILL RECHECK AFTER IT.
--- NOTE | 2019-02-18 08:30 | NUR ---
ICE GUARD INSPECTOR NOTES BLOOD SUGAR VIA FINGERSTICK DONE.IT IS 69. PER PATIENT SHE FEELS BETTER AFTER HAD THE BREAKFAST.REQUESTED ANOTHER ORANGE JUICE.WILL CONTINUE TO MONITOR THE PT.
[2019-02-18 10:00] VITALS: BP 95/60
[2019-02-18] MEDS: MAGNESIUM HYDROXIDE 30 ML UDC PO PRN ×2 (11:28→21:54)
[2019-02-18 11:30] VITALS: BP 104/67
--- NOTE | 2019-02-18 11:45 | NUR ---
PRODUCT TESTER FIBERGLASS NOTES DR FERNANDA Serrano ORDERED TO CHECK BLOOD SUGAR VIA FINGERSTICK Q2HR ONCE AND CHANGED TO Q6HRS.NEW ORDERS NOTED AND CARRIED OUT.
--- NOTE | 2019-02-18 12:00 | NUR ---
CHURCH HISTORY TEACHER NOTES BLOOD SUGAR IS CHECKED VIA FINGERSTICK,IT IS 215.INFORMED DR.SAM CummingsORDERED TO FOLLOW SLIDING SCALE.NEW ORDERS NOTED AND CARRIED OUT.
--- NOTE | 2019-02-18 12:10 | NUR ---
DRYWALL PROFESSIONAL NOTES PT TRANSFER REPORT GIVEN TO HANNA LÓPEZ.
[2019-02-18 12:17] VITALS: BP 105/60
--- NOTE | 2019-02-18 12:55 | NUR ---
WILD OYSTER HARVESTER NOTES PT TRANSFERRED TO ROOM 316 VIA WHEELCHAIR,TOLERATING WELL.ON ROOM AIR,SATURATING WELL.NO SOB AND ACUTE DISTRESS NOTED.NO IV LINE STILL.ALL THE DUE MEDS ARE GIVEN.PT BELONGINGS SEND WITH THE PT AND VERIFIED WIT THE PT,REPORT GIVEN TO HANNA BRAVO.
--- NOTE | 2019-02-18 13:30 | NUR ---
m/s commercial interior designer: notes pt arrived at 1315 per covering nurse and cn. pt lying in bed awake, a/xo4. oriented to room and surroundings. pt asking for more food despite diet education provided. per report pt keeps asking for food and non-compliant with tx plan. pt refused full body assessment. noted with robles wrap dressing to left foot/leg and pt refused to have robles wrap dressing removed for assessment. per pt only her diesel pile driver operator can open the dressing on her next appointment in mid february as stated. pt wants to go smoke the minute she was brought here. smoking consent signed and will assign staff to go with her, pt verbalized understanding. pt has no iv line and md aware per icu report. for d'c planning. instructed to call for assistance. will continue to monitor.
--- NOTE | 2019-02-18 15:00 | NUR ---
m/s civil cad tech: notes pt continue to ask for jello, juices, and saltine crackers. diet education provided. pt keeps insisting that she didn't eat lunch, but per report she's been eating frequently. will continue to monitor.
--- NOTE | 2019-02-18 15:17 | NUR ---
Social service consult requested by Dr. Silva for possible homelessness. Pt. is a 38 year old female who was admitted to [facility] for Hyperglycemia. SW met with pt. bedside. Pt. appears disheveled. Pt. is cooperative and friendly with SW during the assessment. SW is familiar with pt. from previous admissions. Pt's last admission at [facility] was February 2018. Pt. states her vision is impaired and can't see too well. Pt. states she is not homeless and resides at [facility] located at [address] [place] [address] in [place]. [place]. Pt. stated her insurance [id number]. [facility] provides transportation. Pt. receives $800 in [employer] money per month. Pt. denies any drug and alcohol use at this time. However, Pt. has a history of alcohol and methamphetamine use. Pt's alcohol of choice is vodka. Pt. denies suicidal and homicidal ideations and visual/auditory hallucinations at this time. Pt to be discharged back to her sober living. No other social service needs requested at this time. SW is available, if needed. LES updated director of casework Asael regarding pt's discharge plan.
--- NOTE | 2019-02-18 15:25 | NUR ---
m/s bottom turning lathe tender: notes pt called and requesting for pain medication and benadryl. offered tylenol, but pt refused. dr. li notified, left message via voice mail. will continue to monitor.
--- NOTE | 2019-02-18 15:45 | NUR ---
m/s sodium methylate operator: notes dr. li called back and no new order received. no pain med or benadryl per dr. li. pt made aware and wants to change her doctor. cn made aware.
--- NOTE | 2019-02-18 15:51 | NUR ---
Received a call from motor vehicle clerk about pt on [facility] 60gm diet and is asking for extra food. Visited pt today. Pt confirmed height is 5'6" (66 inches) and UBW 145lbs. Pt reports pt did not eat meatballs at lunch so wanted to have something else. Pt appears pt just had crackers and jellos (empty ones at bedside during the visit). Labs reviewed, noted Bg > 600CH upon admission and 215H today. Pt states that pt wanted to ask for sandwiches or something. Educated pt on [facility] diet restrictions and BG levels. RD not recommend snacks between meals at this time. Will re-assess pt's labs and overall medical conditions for snacks between meals tomorrow, per pt request. Pt agreed with the plan. Per pt, pt blind. Notified motor vehicle clerk that pt needs assistance for menu selections. Obtained food preference from pt and endorsed to motor vehicle clerk.
[2019-02-18 16:00] VITALS: BP 98/52
--- NOTE | 2019-02-18 16:00 | NUR ---
m/s hyperbaric tech: notes pt can manipulative. pt will ask from another nurse for more food. cn made aware.
--- NOTE | 2019-02-18 16:30 | NUR ---
m/s fabricator industrial furnace: notes despite educated by dietitian re: diet, pt still asking for more food. pt remains non-compliant. instructed to call for assistance. will continue to monitor.
--- NOTE | 2019-02-18 18:00 | NUR ---
m/s spiritual care coordinator: notes pt remains non-compliant with diet. keeps asking for food and gotten a lot of fortune cookie from the coffee cart. pt non-directable when teaching provided. pt still refused to have wound check on her left foot. instructed to call for assistance. pt ate 100% for dinner. will continue to monitor.
--- NOTE | 2019-02-18 19:00 | NUR ---
m/s asian studies program chair: notes report given to randal (rn) for continuity of care.
--- NOTE | 2019-02-18 19:38 | NUR ---
RN MS OPENING NOTES RECEIVED PT IN BED, AWAKE ALERT ORIENTED X4, BREATHING EVEN AND UNLABORED ON ROOM AIR. COMPLAINING OR PAIN ON THE L FOOT, NO PAIN MED AVAILABLE AT THIS TIME PER DR MICHAEL. NO IV ACCESS, PT REFUSED, MD AWARE. BED LOWEST LOCKED POSITION, CALL LIGHT WITHIN REACH AT ALL TIMES, WILL CONTINUE TO MONITOR FREQUENTLY.
[2019-02-18 20:35] VITALS: BP 130/81
--- NOTE | 2019-02-18 23:14 | NUR ---
endorsed report to doni downs
--- NOTE | 2019-02-18 23:35 | NUR ---
MS RN OPENING NOTES: RECEIVED PT ON ROOM AIR AND IS TOLERATING WELL. PT ASLEEP AT THIS TIME AND RESTING COMFORTABLY. NO SOB NOTED. NO S/S OF DISTRESS. NO IV NOTED AT THIS TIME. BED KEPT IN LOW, LOCKED POSITION, AND SIDE RAILS X 2UP. WILL CONTINUE TO MONITOR PT.
--- NOTE | 2019-02-18 23:59 | NUR ---
MS RN NOTES: INFORMED DR. SHETH THAT BLOOD SUGAR WAS TAKEN TWICE AND RESULT WAS >600. INFORMED HIM THAT PT WAS ADMINISTERED 20 UNITS OF REGULAR INSULIN. PER DR. SHETH, NO NEW ORDERS FOR NOW. OK TO RECHECK IN A COUPLE OF HOURS "IT WILL TAKE A FEW HOURS TO COME DOWN." ALSO, INFORMED HIM THAT PT HAS NOT HAD A BM FOR A WEEK AND THAT MILK OF MAG DID NOT WORK FOR HER. OK FOR ONE TIME ORDER MAG CITRATE ONE BOTTLE.
[2019-02-19] MEDS ORDERED: MAGNESIUM CITRATE 296 ML BOTTLE PO ONE (00:30)
--- NOTE | 2019-02-19 02:36 | NUR ---
MS RN NOTES: PT ASKING FOR MORE SNACKS. RECHECKED BLOOD SUGAR. TOLD HER THAT HER BLOOD SUGAR IS STILL ELEVATED SO NO SNACKS UNTIL NECK SCHEDULED ACCUCHEK IS TAKEN.
[2019-02-19] MEDS: BLOOD SUGAR DIAGNOSTIC 1 EACH STRIP IN SCH ×2 (05:05→11:30)
[2019-02-19] MEDS: INSULIN REGULAR, HUMAN 100 UNIT/ML 3 ML VIAL SQ PRN ×2 (05:07→11:49)
--- NOTE | 2019-02-19 05:40 | NUR ---
MS RN NOTES: PT REFUSING LABS AT THIS TIME. WOULD LIKE POULTRY PATHOLOGIST TO COME AT A LATER TIME. PT ALSO REFUSING TO HAVE L FOOT LOOKED AT BY ME.
--- NOTE | 2019-02-19 06:39 | NUR ---
MS RN CLOSING NOTES: ALL NEEDS WERE ATTENDED AND ANTICIPATED FOR. PT ASLEEP IN BED COMFORTABLE AT THIS TIME. NO SOB NOTED. NO S/S OF DISTRESS. PT STILL REFUSING TO HAVE L FOOT CHECKED. NO IV NOTED. BED KEPT IN LOW, LOCKED POSITION, AND SIDE RAILS X 2UP. WILL ENDORSE TO AM NURSE FOR MABLE.
--- NOTE | 2019-02-19 07:21 | NUR ---
MS RN OPENING NOTES: RECEIVED PATIENT IN BED RESTING COMFORTABLY. A/O X 4. ON ROOM AIR AND TOLERATING WELL. NO IV ACCESS NOTED. DENIES ANY PAIN OR DISCOMFORT AT THIS TIME. NOT IN ANY DISTRESS. SAFETY MEASURES IN PLACE, BED KEPT IN LOW, LOCKED POSITION, AND SIDE RAILS X 2UP. CALL LIGHT WITHIN EASY REACH. WILL CONTINUE TO MONITOR.
[2019-02-19 08:00] VITALS: BP 98/64
[2019-02-19 09:37] LABS: CREATININE 1.2 mg/dL (0.6-1.3); MAGNESIUM 2.9 mg/dL (1.8-2.4); PHOSPHORUS 3.8 mg/dL (2.5-4.9); POTASSIUM 4.8 mmol/L (3.5-5.1)
[2019-02-19] MEDS ORDERED: ZOLP5TAB2 PO (11:30)
[2019-02-19] MEDS ORDERED: HYDR-4384 PO (11:30)
[2019-02-19] MEDS ORDERED: INSU100V27 SQ (11:30)
[2019-02-19] MEDS ORDERED: BLOO-668 IN (11:30)
--- NOTE | 2019-02-19 16:22 | NUR ---
SW was informed by NOE Gauthier that pt. wishes to be discharged to a friend's house located at [address], [address], [place] [address].
--- NOTE | 2019-02-19 17:10 | NUR ---
MS LOGGING TRUCK DRIVER NOTES PATIENT DISCHARGED IN STABLE CONDITION. A/O X 4. ABLE TO MAKE NEEDS KNOWN. V/S TAKEN, STABLE AND RECORDED. NAME ARM BAND REMOVED. ALL BELONGINGS CHECKED AND SIGNED. HEALTH TEACHING/ DISCHARGED INSTRUCTIONS GIVEN AND VERBALIZED UNDERSTANDING. PATIENT LEFT UNIT VIA WHEELCHAIR WITH A FRIEND AND HOSPITAL STAFF AT 17:00 WITH NO ACUTE SIGNS OF DISTRESS. PATIENT ASSISTED TO THE LOBBY AND WAS PICKED UP BY [facility]. CHARGE NURSE MADE AWARE OF DISCHARGED.
== END 2019-02-19 17:00 | disposition home or self-care (01) | DRG 420 ==
LOC: ER 15:31 → ICU 20:59 → MED 02-18 12:58
PROVIDERS: ADMIT Internal Medicine; ATTEND Nurse Practitioner Acute Care
DX: E10.10 Type 1 diabetes mellitus with ketoacidosis without coma (principal); N17.0 Acute kidney failure with tubular necrosis; E44.0 Moderate protein-calorie malnutrition; E10.649 Type 1 diabetes mellitus with hypoglycemia without coma; F11.20 Opioid dependence, uncomplicated; E87.1 Hypo-osmolality and hyponatremia; F29 Unspecified psychosis not due to a substance or known physiological condition; Z73.6 Limitation of activities due to disability; E86.0 Dehydration; G89.4 Chronic pain syndrome; E10.40 Type 1 diabetes mellitus with diabetic neuropathy, unspecified; E10.43 Type 1 diabetes mellitus with diabetic autonomic (poly)neuropathy; I10 Essential (primary) hypertension; Z89.429 Acquired absence of other toe(s), unspecified side; Z88.6 Allergy status to analgesic agent; Z88.1 Allergy status to other antibiotic agents; Z88.5 Allergy status to narcotic agent; Z88.0 Allergy status to penicillin; Z88.8 Allergy status to other drugs, medicaments and biological substances; Z79.4 Long term (current) use of insulin; Z79.899 Other long term (current) drug therapy; F17.200 Nicotine dependence, unspecified, uncomplicated; Z59.0 Homelessness; Z87.11 Personal history of peptic ulcer disease; K21.9 Gastro-esophageal reflux disease without esophagitis; K31.9 Disease of stomach and duodenum, unspecified; E10.610 Type 1 diabetes mellitus with diabetic neuropathic arthropathy; K59.00 Constipation, unspecified; E86.1 Hypovolemia
CPT/HCPCS: 36415; 36600; 80048-TC; 80061-TC; 80076-TC; 81000-TC; 82010-TC; 82962-TC; 83690-TC; 83735-TC; 84100-TC; 84703-TC; 85025-TC; 87081-TC; C1751; G0378; J1815; J2270; J2405; J3490; J7030

== ENCOUNTER 2019-04-08 18:40 | Emergency (ER) | payer OTHER ==
[~2019-04-08] VITALS: Ht 165.1 cm; Wt 70.8 kg
[~2019-04-08 18:40] MED LIST changes: +AMLO10TA4 PO; +CEPH-570 PO; -DOCU100C36 PO; +HYDR-4384 PO; +INSU100V27 SQ; -OMEP40CA37 PO; -ONDA4TAB10 PO; -PYRI-7 PO; +SULF1TAB48 PO; +ZOLP10TA2 PO; +ZOLP5TAB2 PO
--- NOTE | 2019-04-08 19:30 | NUR ---
BIBSELF C/O LEFT LOWER EXTREMITY PAIN AND SWELLING X1 WEEK. DENIES TRAUMA. AAOX4. RESPIRATIONS EVEN AND UNLABORED. NO ACUTE DISTRESS NOTED AT THIS TIME.
[2019-04-08 19:55] LABS: BASOPHILS # (AUTO) 0.1 /CMM (0.0-0.2); BASOPHILS % (AUTO) 0.7 % (0.0-2.0); EOSINOPHILS % (AUTO) 2.8 % (0.0-6.0); HEMATOCRIT 32 % (33-45); HEMOGLOBIN 10.2 g/dL (11.5-14.8); LYMPHOCYTES # (AUTO) 4.3 /CMM (0.8-4.8); LYMPHOCYTES % (AUTO) 23.3 % (20.0-44.0); MEAN CORPUSCULAR HGB CONC 32 g/dl (31.0-36.0); MEAN CORPUSCULAR VOLUME 79 fL (82-100); MONOCYTES # (AUTO) 1.1 /CMM (0.1-1.30); MONOCYTES % (AUTO) 6.3 % (2.0-12.0); NEUTROPHILS # (AUTO) 12.2 /CMM (1.8-8.9); NEUTROPHILS % (AUTO) 66.9 % (43.0-81.0); PLATELET COUNT (AUTO) 608 /CMM (150-450); RED BLOOD CELL COUNT(AUTO) 4.03 MIL/uL (4.0-5.2); WHITE BLOOD COUNT (AUTO) 18.3 K/uL (4.3-11.0)
[2019-04-08 20:29] LABS: CALCIUM, SERUM 9.2 mg/dL (8.5-10.1); CREATININE 1.3 mg/dL (0.6-1.3); POTASSIUM 5.7 mmol/L (3.5-5.1)
--- NOTE | 2019-04-08 20:43 | NUR ---
CALLED [facility] FOR REPORT
[2019-04-08] MEDS ORDERED: HYDROMORPHONE INJ 2 MG/ML DISP.SYRIN IV ONE (21:00)
[2019-04-08] MEDS ORDERED: ONDANSETRON HCL/PF 4 MG/2 ML VIAL IVP ONE (21:00)
[2019-04-08] MEDS ORDERED: ONDANSETRON HCL/PF 4 MG/2 ML VIAL ONE (21:01)
[2019-04-08] MEDS ORDERED: HYDROMORPHONE 1 MG/1 ML DISP.SYRIN ONE (21:02)
[2019-04-08] MEDS ORDERED: IV NS 0.9% 1,000 ML BAG IV ONE (21:30)
[2019-04-08] MEDS ORDERED: SODIUM POLYSTYRENE SULFONATE 15 G/60 ML BOTTLE PO ONE (22:00)
[2019-04-08] MEDS ORDERED: CLINDAMYCIN HCL 150 MG CAPSULE PO ONE ×2 (23:00→23:03)
[2019-04-08] MEDS ORDERED: SODIUM POLYSTYRENE SULFONATE 15 G/60 ML BOTTLE ONE (23:03)
[2019-04-09] MEDS ORDERED: diphenhydrAMINE HCL 25 MG CAPSULE PO ONE
[2019-04-09] MEDS ORDERED: diphenhydrAMINE HCL 25 MG CAPSULE ONE (00:19)
[2019-04-09 00:45] VITALS: BP 137/88
== END 2019-04-09 00:45 | disposition home or self-care (01) ==
LOC: ER 18:50
DX: M25.572 Pain in left ankle and joints of left foot (principal); E11.9 Type 2 diabetes mellitus without complications; K21.9 Gastro-esophageal reflux disease without esophagitis; I10 Essential (primary) hypertension; F17.200 Nicotine dependence, unspecified, uncomplicated; Z98.890 Other specified postprocedural states; Z88.0 Allergy status to penicillin; Z88.6 Allergy status to analgesic agent; Z88.8 Allergy status to other drugs, medicaments and biological substances; Z60.2 Problems related to living alone; Z79.899 Other long term (current) drug therapy; Z79.4 Long term (current) use of insulin
CPT/HCPCS: 36415; 73610; 73630; 80048; 85025; 96374; 96375; 99284; J1170; J2405; J7030; Q0163

== ENCOUNTER 2019-06-17 18:04 | Emergency (ER) | payer OTHER ==
[~2019-06-17] VITALS: Ht 167.6 cm; Wt 72.6 kg
--- NOTE | 2019-06-17 18:12 | NUR ---
PT BIBRA TO ED BED 02. PER REPORT, PT WAS FOUND ON THE FLOOR BY ROOMATE. PT WAS AWAKE, C/O WEAKNESS. HX OF DM TYPE I. HYPOGLYCEMIC W/ INITIAL BG OF 20. PT WAS GIVEN GLUCOSE PASTE AND GLUCAGON. BLOOD GLUCOSE CHECK, 64 UPON ARRIVAL. PT IS AAOX3. PLACED ON MONITOR. VSS. AWAITING MD JUNG.
--- NOTE | 2019-06-17 18:14 | NUR ---
ACCUCHECK 64
[2019-06-17] MEDS ORDERED: DEXTROSE 50%-WATER 50 ML DISP.SYRIN IV ONE (18:30)
[2019-06-17 19:08] LABS: BASOPHILS % (AUTO) 0.2 % (0.0-2.0); EOSINOPHILS % (AUTO) 0.2 % (0.0-6.0); HEMATOCRIT 31 % (33-45); HEMOGLOBIN 9.7 g/dL (11.5-14.8); LYMPHOCYTES # (AUTO) 0.7 /CMM (0.8-4.8); LYMPHOCYTES % (AUTO) 4.1 % (20.0-44.0); MEAN CORPUSCULAR HGB CONC 31 g/dl (31.0-36.0); MEAN CORPUSCULAR VOLUME 75 fL (82-100); MONOCYTES % (AUTO) 5.9 % (2.0-12.0); NEUTROPHILS % (AUTO) 89.6 % (43.0-81.0); PLATELET COUNT (AUTO) 643 /CMM (150-450); RED BLOOD CELL COUNT(AUTO) 4.14 MIL/uL (4.0-5.2); WHITE BLOOD COUNT (AUTO) 16.7 K/uL (4.3-11.0)
[2019-06-17 19:16] LABS: CALCIUM, SERUM 8.9 mg/dL (8.5-10.1); CREATININE 0.7 mg/dL (0.6-1.3); POTASSIUM 3.5 mmol/L (3.5-5.1)
--- NOTE | 2019-06-17 19:40 | NUR ---
REPORT GIVEN TO RN REVIEW HANNA AGUAYO FOR MABLE.
--- NOTE | 2019-06-17 19:42 | NUR ---
Coos juice given to patient per MD order. MD aware that patient has no IV access yet.
--- NOTE | 2019-06-17 20:00 | NUR ---
MD made aware of the inability to stablish an IV line . food offered to the pt
--- NOTE | 2019-06-17 20:46 | NUR ---
fsbs:[id number] Pt reported feeling good. made aware
--- NOTE | 2019-06-17 21:06 | NUR ---
dressing change on R foot and lower naik provided. pt was provided w/ a pair of socks. Written and verbal after care instructions given. Patient verbalizes understanding of instruction. called friendJan to worm picker the pt.
[2019-06-17 21:34] VITALS: BP 124/62
--- NOTE | 2019-06-17 21:34 | NUR ---
Patient discharged to home in stable condition. Written and verbal after care instructions given. Patient verbalizes understanding of instruction.
== END 2019-06-17 21:47 | disposition home or self-care (01) ==
LOC: ER 18:05
DX: E11.649 Type 2 diabetes mellitus with hypoglycemia without coma (principal); I10 Essential (primary) hypertension; K21.9 Gastro-esophageal reflux disease without esophagitis; F10.10 Alcohol abuse, uncomplicated; F17.200 Nicotine dependence, unspecified, uncomplicated; Y90.9 Presence of alcohol in blood, level not specified; Z98.890 Other specified postprocedural states; Z88.0 Allergy status to penicillin; Z88.6 Allergy status to analgesic agent; Z88.5 Allergy status to narcotic agent; Z88.1 Allergy status to other antibiotic agents; Z60.2 Problems related to living alone; Z79.4 Long term (current) use of insulin; Z79.899 Other long term (current) drug therapy
CPT/HCPCS: 36415; 80048-TC; 82962-TC; 84702-TC; 85025-TC

== ENCOUNTER 2019-09-17 19:20 | Emergency (ER) | payer OTHER ==
[~2019-09-17] VITALS: Ht 167.6 cm; Wt 72.6 kg
[2019-09-17] MEDS ORDERED: CLINDAMYCIN 600 MG in IV D5W 100 ML IV ONE (20:00)
[2019-09-17] MEDS ORDERED: MEROPENEM 1,000 MG in IV NS 0.9% 100 ML IV ONE (20:00)
--- NOTE | 2019-09-17 20:32 | NUR ---
called house supp for mid line insertion
--- NOTE | 2019-09-17 20:47 | NUR ---
multiple attempts by different RNs and lab techs to insert an iv line and draw blood , unsuccessfull
--- NOTE | 2019-09-17 20:48 | NUR ---
x ray at the bed side
[2019-09-17] MEDS ORDERED: IV NS 0.9% 1,000 ML BAG IV ONE (22:30)
--- NOTE | 2019-09-17 22:35 | NUR ---
PIC LINE / MID LINE NURSE NOT AVAILABLE TO INSERT A LINE AT THIE TIME. NULTIPLE ATTEMPTS DONE TO START AN IV LINE.
[2019-09-17 22:55] LABS: BASOPHILS # (AUTO) 0.1 /CMM (0.0-0.2); BASOPHILS % (AUTO) 1.1 % (0.0-2.0); EOSINOPHILS % (AUTO) 1.5 % (0.0-6.0); HEMATOCRIT 25 % (33-45); HEMOGLOBIN 7.8 g/dL (11.5-14.8); LYMPHOCYTES # (AUTO) 1.9 /CMM (0.8-4.8); LYMPHOCYTES % (AUTO) 16.4 % (20.0-44.0); MEAN CORPUSCULAR HGB CONC 31 g/dl (31.0-36.0); MEAN CORPUSCULAR VOLUME 76 fL (82-100); MONOCYTES # (AUTO) 0.9 /CMM (0.1-1.30); NEUTROPHILS # (AUTO) 8.5 /CMM (1.8-8.9); PLATELET COUNT (AUTO) 628 /CMM (150-450); RED BLOOD CELL COUNT(AUTO) 3.27 MIL/uL (4.0-5.2); WHITE BLOOD COUNT (AUTO) 11.7 K/uL (4.3-11.0)
--- NOTE | 2019-09-17 23:00 | NUR ---
W/ MULTIPLE UNSUCCESSFUL ATTEMPTS TO INSERRT AN IV LINE. PT REFUSED EJ LINE.
--- NOTE | 2019-09-17 23:19 | NUR ---
PT ACCEPTED TO [facility] BY DR WHITNEY. BED 304. # FOR REPORT [phone].
[2019-09-17 23:22] LABS: ALANINE AMINOTRANSFERASE 13 U/L (12-78); ALBUMIN 2.2 g/dL (3.4-5.0); ALKALINE PHOSPHATASE 137 U/L (46-116); ASPARTATE AMINOTRANSFERASE 15 U/L (15-37); BILIRUBIN,DIRECT 0.1 mg/dL (0.0-0.2); BILIRUBIN,TOTAL 0.4 mg/dL (0.2-1.0); CALCIUM, SERUM 8.8 mg/dL (8.5-10.1); CARBON DIOXIDE 20 mmol/L (21-32); CHLORIDE 95 mmol/L (98-107); CREATININE 1.7 mg/dL (0.6-1.3); POTASSIUM 4.9 mmol/L (3.5-5.1); SODIUM SERUM 128 mmol/L (136-145); TOTAL PROTEIN, SERUM 8.4 g/dL (6.4-8.2); UREA NITROGEN, BLOOD 37 mg/dL (7-18)
[2019-09-17 23:25] LABS: GLUCOSE 606 mg/dL (74-106)
[2019-09-17] MEDS ORDERED: POTASSIUM CHLORIDE 20 MEQ TAB.PRT.SR PO ONE (23:30)
[2019-09-17] MEDS ORDERED: INSULIN REGULAR, HUMAN 100 UNIT/ML 10 ML VIAL IV ONE (23:30)
[2019-09-17] MEDS ORDERED: IV PREMIX 0.45% NS + KCL 1,000 ML IV ONE (23:30)
[2019-09-17 23:44] VITALS: BP 138/85
[2019-09-18] MEDS ORDERED: CEFTRIAXONE 1 G VIAL IM ONE
[2019-09-18] MEDS ORDERED: INSULIN REGULAR, HUMAN 100 UNIT/ML 10 ML VIAL SQ ONE
[2019-09-18] MEDS ORDERED: CEFTRIAXONE 1 G VIAL ONE (00:16)
[2019-09-18] MEDS ORDERED: LIDOCAINE /MPF 1% VIAL 5 ML VIAL ONE (00:16)
[2019-09-18] MEDS ORDERED: CLINDAMYCIN HCL 150 MG CAPSULE PO ONE ×2 (00:16)
[2019-09-18] MEDS ORDERED: POTASSIUM CHLORIDE 20 MEQ TAB.PRT.SR PO ONE ×2 (00:17)
[2019-09-18] MEDS ORDERED: INSULIN REGULAR, HUMAN 100 UNIT/ML 10 ML VIAL ONE (00:17)
[2019-09-18] MEDS ORDERED: MAGNESIUM HYDROXIDE 30 ML UDC PO ONE (00:30)
[2019-09-18] MEDS ORDERED: MAGNESIUM CITRATE 296 ML BOTTLE PO ONE (00:30)
[2019-09-18] MEDS ORDERED: HYDROCODONE/APAP 10/325MG 1 EA TABLET PO ONE (00:30)
[2019-09-18] MEDS ORDERED: MAGNESIUM CITRATE 296 ML BOTTLE ONE (00:39)
[2019-09-18] MEDS ORDERED: MAGNESIUM HYDROXIDE 30 ML UDC ONE (00:39)
[2019-09-18] MEDS ORDERED: HYDROCODONE/APAP 10/325MG 1 EA TABLET ONE (00:39)
--- NOTE | 2019-09-18 00:50 | NUR ---
pt is accepted at [facility]. [id number]. tel: [phone]
[2019-09-18] MEDS ORDERED: diphenhydrAMINE HCL 50 MG CAPSULE ONE (01:23)
[2019-09-18] MEDS ORDERED: diphenhydrAMINE HCL 50 MG CAPSULE PO ONE (01:30)
--- NOTE | 2019-09-18 01:39 | NUR ---
report given to Julee at [facility]
--- NOTE | 2019-09-18 01:46 | NUR ---
report given to EMS from [facility]
--- NOTE | 2019-09-18 02:01 | NUR ---
pt was picked up by [facility] in stable condition and transferred to [facility] . All belongings picked up by the pt/ repeat photocomposing machine operator.
== END 2019-09-18 02:04 | disposition short-term general hospital (02) ==
LOC: ER 19:26
DX: L03.116 Cellulitis of left lower limb (principal); I10 Essential (primary) hypertension; E11.40 Type 2 diabetes mellitus with diabetic neuropathy, unspecified; G89.4 Chronic pain syndrome; K21.9 Gastro-esophageal reflux disease without esophagitis; F17.200 Nicotine dependence, unspecified, uncomplicated; Z98.890 Other specified postprocedural states; Z88.0 Allergy status to penicillin; Z88.6 Allergy status to analgesic agent; Z88.8 Allergy status to other drugs, medicaments and biological substances; Z60.2 Problems related to living alone; Z79.899 Other long term (current) drug therapy; Z79.4 Long term (current) use of insulin
CPT/HCPCS: 36415; 71045; 73610; 73630; 80048; 80076; 82010; 82962; 83605; 84145; 84484; 85025; 85652; 85730; 87040 ×2; 93005; 96372; 99285; A6253; A6403; J0696; J1815; J2185; J3490 ×2; J7030; J7060; Q0163

== ENCOUNTER 2025-06-11 17:36 | Inpatient (IN) | payer MEDICAID, OTHER ==
[~2025-06-11] VITALS: Ht 167.6 cm; Wt 69.0 kg
[2025-06-11] VITALS (8 sets, daily range): BP systolic 85–115; BP diastolic 45–67; TEMP 96.8; O2SAT 92–100
[2025-06-11 19:50] LABS: SITE, VBG VBG - N/A; VBG BASE EXCESS -22.4 mmol/L (-2.0-3.0); VBG HCO3 4.4 mmol/L (22.0-29.0); VBG MetHb 0.2 % (0.5-1.5); VBG OXYGEN SATURATION 87.6 % (60.0-85.0); VBG PCO2 13.3 mmHg (38.0-54.0); VBG PH 7.141 (7.320-7.430); VBG PO2 69.0 mmHg (23.0-48.0); VBG TOTAL HEMOGLOBIN 10.2 G/dL (12.0-16.0)
[2025-06-11] MEDS: IV NS 0.9% 1,000 ML BAG IV ONE (20:00)
[2025-06-11 20:03] LABS: PLATELET COUNT (AUTO) 280 K/uL (150-450); RED BLOOD CELL COUNT(AUTO) 3.44 MIL/uL (4.0-5.2); RED CELL DISTRIBUTION WIDTH 17.2 % (11.5-15.0); WHITE BLOOD COUNT (AUTO) 21.0 K/uL (4.3-11.0)
[2025-06-11 20:27] LABS: LACTIC ACID 2.8 mmol/L (0.4-2.0)
[2025-06-11] MEDS ORDERED: CEFEPIME 1 GM VIAL ONE (20:29)
[2025-06-11] MEDS ORDERED: ONDANSETRON HCL/PF 4 MG/2 ML VIAL ONE (20:29)
[2025-06-11] MEDS ORDERED: IV LR 1000 ML 1,000 ML BAG IV ONE (20:30)
[2025-06-11 20:31] LABS: CALCIUM, SERUM 7.7 mg/dL (8.5-10.1); CREATININE 3.3 mg/dL (0.6-1.3)
[2025-06-11] MEDS: CEFEPIME 1 GM in IV D5W 50 ML IV ONE (20:31)
[2025-06-11] MEDS: ONDANSETRON HCL/PF - ER 4 MG/2 ML VIAL IV ONE (20:31)
[2025-06-11 20:33] LABS: SODIUM SERUM 118 mmol/L (136-145); UREA NITROGEN, BLOOD 120 mg/dL (7-18)
[2025-06-11] MEDS: IV NS 0.9% 1,000 ML BAG IV PRN (20:57)
[2025-06-11] MEDS ORDERED: INSULIN REGULAR, HUMAN 100 UNIT/ML 10 ML VIAL ONE ×2 (20:59→23:10)
[2025-06-11] MEDS ORDERED: IV NS 0.9% 1,000 ML IV PRN (21:00)
[2025-06-11] MEDS: INSULIN REGULAR, HUMAN 100 UNITS in IV NS 0.9% 100 ML IV PRN (21:13)
[2025-06-11 21:16] LABS: APPEARANCE,URINE CLEAR (CLEAR); BLOOD, URINE NEGATIVE Ery/uL (NEGATIVE); LEUKOCYTE ESTERASE ,URINE NEGATIVE (NEGATIVE); NITRITE, URINE NEGATIVE (NEGATIVE); UGLUCOSE 3+ mg/dL (NEGATIVE)
[2025-06-11 21:18] LABS: PREGNANCY TEST URINE QUAL NEGATIVE (NEGATIVE)
[2025-06-11 21:26] LABS: ADD URINE CULTURE NO; SQUAMOUS EPITHELIAL CELL,UR Few /HPF (None Seen)
[2025-06-11 21:28] LABS: HYALINE CASTS, URINE Rare /LPF (None Seen)
[2025-06-11] MEDS ORDERED: MAG HYDROX/AL HYDROX/SIMETH 30 ML UDC PO PRN (21:30)
[2025-06-11] MEDS ORDERED: ONDANSETRON HCL/PF 4 MG/2 ML VIAL IVP PRN (21:30)
[2025-06-11] MEDS ORDERED: Z GUARD REMEDY 4 OZ OINT TP PRN (21:30)
[2025-06-11] MEDS ORDERED: ACETAMINOPHEN 325 MG TABLET PO PRN (21:30)
[2025-06-11] MEDS ORDERED: DEXTROSE 50%-WATER 50 ML DISP.SYRIN IV PRN (21:30)
[2025-06-11] MEDS: BLOOD SUGAR DIAGNOSTIC 1 EACH STRIP IN SCH (21:33)
[2025-06-11 22:07] LABS: CALCIUM, SERUM 7.1 mg/dL (8.5-10.1); CREATININE 3.1 mg/dL (0.6-1.3); PHOSPHORUS 7.2 mg/dL (2.5-4.9); SODIUM SERUM 121 mmol/L (136-145)
[2025-06-11] MEDS: SODIUM BICARBONATE SYR 50 MEQ/50 ML DISP.SYRIN IV ONE ×2 (22:12→23:11)
[2025-06-11] MEDS: CALCIUM CHLORIDE 1,000 MG/10 ML DISP.SYRIN IV ONE ×2 (22:12→23:11)
[2025-06-11] MEDS: SODIUM BICARBONATE SYR 50 MEQ/50 ML DISP.SYRIN ONE (22:12)
[2025-06-11] MEDS: Sodium Bicarbonate 100 MEQ in IV NS 0.9% 1,000 ML IV PRN (22:21)
[2025-06-11 22:29] LABS: UREA NITROGEN, BLOOD 120 mg/dL (7-18)
[2025-06-11] MEDS: INSULIN REGULAR, HUMAN 100 UNIT in IV NS 0.9% 99 ML IV PRN (22:35)
[2025-06-11] MEDS: HYDROMORPHONE 1 MG/1 ML DISP.SYRIN IV ONE (23:14)
[2025-06-11] MEDS: ALBUTEROL FS 2.5 MG/3 ML VIAL.NEB NEB ONE (23:14)
[2025-06-11 23:46] LABS: CALCIUM, SERUM 8.8 mg/dL (8.5-10.1); CREATININE 2.9 mg/dL (0.6-1.3); PHOSPHORUS 5.0 mg/dL (2.5-4.9); SODIUM SERUM 127 mmol/L (136-145)
[2025-06-12] VITALS (38 sets, daily range): BP systolic 71–138; BP diastolic 39–67; TEMP 96.8–98.6; O2SAT 92–100
[2025-06-12 00:12] LABS: UREA NITROGEN, BLOOD 117 mg/dL (7-18)
[2025-06-12 00:14] LABS: LACTIC ACID REFLEX 2.5 mmol/L (0.4-1.9)
[2025-06-12 00:52] LABS: CALCIUM, SERUM 9.4 mg/dL (8.5-10.1); CREATININE 3.0 mg/dL (0.6-1.3); PHOSPHORUS 4.7 mg/dL (2.5-4.9)
[2025-06-12 00:59] LABS: SODIUM SERUM 128.0 mmol/L (136-145)
[2025-06-12] MEDS ORDERED: Sodium Bicarbonate 100 MEQ in IV D5/ 0.9% NACL 1,000 ML IV PRN (01:00)
[2025-06-12 01:04] LABS: UREA NITROGEN, BLOOD 120.0 mg/dL (7-18)
[2025-06-12] MEDS: IV LR 500 ML IV ONE (01:10)
[2025-06-12] MEDS: Sodium Bicarbonate 100 MEQ in IV NS 0.9% 1,000 ML IV PRN (01:35)
[2025-06-12] MEDS: POTASSIUM CHLORIDE 10 MEQ/50 ML PREMIXED IVPB FOR PERIPHERAL LINE IV ONE (01:39)
[2025-06-12 04:36] LABS: ASPARTATE AMINOTRANSFERASE 7.0 U/L (15-37); CALCIUM, SERUM 8.9 mg/dL (8.5-10.1); CREATININE 2.7 mg/dL (0.6-1.3); PHOSPHORUS 2.8 mg/dL (2.5-4.9); SODIUM SERUM 132.0 mmol/L (136-145); TOTAL PROTEIN, SERUM 5.0 g/dL (6.4-8.2)
[2025-06-12 04:37] LABS: CREATINE KINASE, TOTAL 39.0 U/L (26-192)
[2025-06-12 04:53] LABS: LACTIC ACID 2.9 mmol/L (0.4-2.0); UREA NITROGEN, BLOOD 124.0 mg/dL (7-18)
[2025-06-12 05:31] LABS: PLATELET COUNT (AUTO) 209 K/uL (150-450); RED BLOOD CELL COUNT(AUTO) 2.76 MIL/uL (4.0-5.2); RED CELL DISTRIBUTION WIDTH 16.0 % (11.5-15.0); WHITE BLOOD COUNT (AUTO) 14.3 K/uL (4.3-11.0)
[2025-06-12] MEDS: Sodium Bicarbonate 100 MEQ in IV NS 0.9% 1,000 ML IV SCH (07:37)
[2025-06-12 10:33] LABS: CALCIUM, SERUM 8.8 mg/dL (8.5-10.1); SODIUM SERUM 139.0 mmol/L (136-145)
[2025-06-12 10:41] LABS: CREATININE 1.9 mg/dL (0.6-1.3)
[2025-06-12 10:48] LABS: UREA NITROGEN, BLOOD 113.0 mg/dL (7-18)
[2025-06-12] MEDS ORDERED: DEXTROSE 50%-WATER 50 ML DISP.SYRIN IV PRN (11:30)
[2025-06-12] MEDS: BLOOD SUGAR DIAGNOSTIC 1 EACH STRIP IN SCH (12:18)
[2025-06-12] MEDS: POTASSIUM CHLORIDE 20 MEQ TAB.PRT.SR PO ONE (12:34)
[2025-06-12 13:25] LABS: CALCIUM, SERUM 8.6 mg/dL (8.5-10.1); CREATININE 1.8 mg/dL (0.6-1.3); SODIUM SERUM 139.0 mmol/L (136-145)
[2025-06-12 13:31] LABS: UREA NITROGEN, BLOOD 102.0 mg/dL (7-18)
[2025-06-12] MEDS: INSULIN REGULAR, HUMAN 100 UNIT/ML 3 ML VIAL SQ PRN (17:42)
[2025-06-12] MEDS: CEFEPIME 1 GM in IV D5W 50 ML IV SCH (20:37)
[2025-06-12] MEDS: *INSULIN REGULAR(HUMULIN R)HUM 100 UNIT/ML VIAL SQ PRN (21:28)
[2025-06-12] MEDS: INSULIN GLARGINE, 100 UNIT/ML CARTRIDGE SQ SCH (21:29)
[2025-06-13 04:26] VITALS: BP 132/53; TEMP 97.7; O2SAT 96
[2025-06-13] MEDS: HYDROCODONE/APAP 10/325MG TABLET PO PRN (04:31)
[2025-06-13 08:00] VITALS: BP 105/71; TEMP 97.9; O2SAT 98
[2025-06-13] MEDS: MUPIROCIN OINT 2% 22 GM TUBE TP SCH (10:16)
[2025-06-13 12:53] LABS: ASPARTATE AMINOTRANSFERASE 18.0 U/L (15-37); CALCIUM, SERUM 8.3 mg/dL (8.5-10.1); CREATININE 1.2 mg/dL (0.6-1.3); PHOSPHORUS 1.8 mg/dL (2.5-4.9); SODIUM SERUM 137.0 mmol/L (136-145); TOTAL PROTEIN, SERUM 5.9 g/dL (6.4-8.2); UREA NITROGEN, BLOOD 52.0 mg/dL (7-18)
[2025-06-13 12:55] LABS: CREATINE KINASE, TOTAL 34.0 U/L (26-192)
[2025-06-13 13:29] LABS: PLATELET COUNT (AUTO) 188 K/uL (150-450); RED BLOOD CELL COUNT(AUTO) 2.68 MIL/uL (4.0-5.2); RED CELL DISTRIBUTION WIDTH 17.1 % (11.5-15.0); WHITE BLOOD COUNT (AUTO) 10.2 K/uL (4.3-11.0)
[2025-06-13 16:00] VITALS: BP 104/62; TEMP 97.9; O2SAT 98
[2025-06-13] MEDS: K PHOS NEUTRAL 250 MG TABLET PO ONE (16:54)
[2025-06-13 20:00] VITALS: BP 113/67; TEMP 97.7; O2SAT 100
[2025-06-13] MEDS: MAGNESIUM HYDROXIDE 30 ML UDC PO PRN (21:10)
[2025-06-13] MEDS: INSULIN GLARGINE, 100 UNIT/ML CARTRIDGE SQ SCH (22:52)
[2025-06-14 04:00] VITALS: BP 123/69; TEMP 97.8; O2SAT 99
[2025-06-14 08:00] VITALS: BP 125/70; TEMP 97.9; O2SAT 97
[2025-06-14 12:10] LABS: PTH, INTACT 20 pg/mL (15-65)
== END 2025-06-14 16:22 | disposition home or self-care (01) | DRG 720 ==
LOC: ER 17:41 → ICU 20:25 → TELE1 06-12 15:30 → MEDSG1 06-13 10:26
PROVIDERS: ADMIT Nurse Practitioner Acute Care
DX: A41.9 Sepsis, unspecified organism (principal); N17.0 Acute kidney failure with tubular necrosis; E10.10 Type 1 diabetes mellitus with ketoacidosis without coma; A52.16 Charcot's arthropathy (tabetic); D64.9 Anemia, unspecified; S90.112A Contusion of left great toe without damage to nail, initial encounter; E86.0 Dehydration; I10 Essential (primary) hypertension; E66.9 Obesity, unspecified; E87.1 Hypo-osmolality and hyponatremia; E86.9 Volume depletion, unspecified; E86.1 Hypovolemia; M89.8X9 Other specified disorders of bone, unspecified site; Z59.00 Homelessness unspecified; K21.9 Gastro-esophageal reflux disease without esophagitis; Z89.429 Acquired absence of other toe(s), unspecified side; Z88.1 Allergy status to other antibiotic agents; Z88.0 Allergy status to penicillin; Z79.4 Long term (current) use of insulin; Z79.899 Other long term (current) drug therapy; E87.5 Hyperkalemia; F17.210 Nicotine dependence, cigarettes, uncomplicated; Z71.6 Tobacco abuse counseling; E87.6 Hypokalemia; Z91.148 Patient's other noncompliance with medication regimen for other reason; Z68.24 Body mass index [BMI] 24.0-24.9, adult; Z87.39 Personal history of other diseases of the musculoskeletal system and connective tissue; X58.XXXA Exposure to other specified factors, initial encounter; Y92.9 Unspecified place or not applicable
CPT/HCPCS: 36415; 74018; 76770-TC; 80048-TC; 80053-TC; 81001; 82247-TC; 82248-TC; 82550-TC; 82803-TC; 82962-TC; 83605-TC; 83735-TC; 83970; 84100-TC; 84155; 84165; 84703-TC; 85025-TC; 87040-TC; 87081-TC; 87086-TC; 97530-TC; A4223; G0378; J0692; J1171; J1815; J2405; J3480; J3490; J7030; J7042; J7050; J7060; J7120

== ENCOUNTER 2025-06-14 16:35 | Emergency (ER) | payer MEDICAID ==
[~2025-06-14] VITALS: Ht 165.1 cm; Wt 68.0 kg
[~2025-06-14 16:35] MED LIST changes: -CEPH-570 PO; -HYDR-4384 PO; -INSU100V27 SQ; -SULF1TAB48 PO; -ZOLP5TAB2 PO
[2025-06-14 16:37] VITALS: BP 101/65; TEMP 97.9; O2SAT 96
[2025-06-14] MEDS ORDERED: MECLIZINE HCL 25 MG TABLET ONE (20:58)
[2025-06-14] MEDS: MECLIZINE HCL 25 MG TABLET PO ONE ×2 (20:59→21:11)
== END 2025-06-14 23:07 | disposition home or self-care (01) ==
LOC: ER 16:45
DX: E11.65 Type 2 diabetes mellitus with hyperglycemia (principal); R42 Dizziness and giddiness; I11.9 Hypertensive heart disease without heart failure; F17.200 Nicotine dependence, unspecified, uncomplicated; Z88.0 Allergy status to penicillin; Z88.1 Allergy status to other antibiotic agents; Z88.6 Allergy status to analgesic agent; Z79.899 Other long term (current) drug therapy; Z60.2 Problems related to living alone
CPT/HCPCS: 99282; 82962; J8597

== ENCOUNTER 2025-06-15 04:07 | Emergency (ER) | payer MEDICAID ==
[~2025-06-15] VITALS: Ht 167.6 cm; Wt 63.5 kg
[~2025-06-15 04:07] MED LIST changes: +CEPH-570 PO; +HYDR-4384 PO; +INSU100V27 SQ; +SULF1TAB48 PO; +ZOLP5TAB2 PO
[2025-06-15 06:00] VITALS: TEMP 98.6
[2025-06-15 07:04] LABS: PLATELET COUNT (AUTO) 250 K/uL (150-450); RED BLOOD CELL COUNT(AUTO) 3.15 MIL/uL (4.0-5.2); RED CELL DISTRIBUTION WIDTH 16.7 % (11.5-15.0); WHITE BLOOD COUNT (AUTO) 5.0 K/uL (4.3-11.0)
[2025-06-15 07:19] LABS: PHOSPHORUS 2.8 mg/dL (2.5-4.9)
[2025-06-15 07:22] LABS: CALCIUM, SERUM 9.0 mg/dL (8.5-10.1); CREATININE 1.3 mg/dL (0.6-1.3); SODIUM SERUM 133.0 mmol/L (136-145); UREA NITROGEN, BLOOD 28.0 mg/dL (7-18)
[2025-06-15 07:33] LABS: ACETONE, SERUM SMALL (NEGATIVE)
[2025-06-15] MEDS ORDERED: INSULIN REGULAR, HUMAN 100 UNIT/ML 10 ML VIAL ONE (07:34)
[2025-06-15] MEDS: INSULIN REGULAR, HUMAN 100 UNIT/ML 10 ML VIAL SQ ONE (07:46)
[2025-06-15] MEDS: IV LR 1000 ML 1,000 ML BAG IV ONE (07:59)
[2025-06-15] MEDS: IV NS 0.9% 1,000 ML BAG IV ONE (09:10)
[2025-06-15 10:45] VITALS: BP 118/49; O2SAT 98
== END 2025-06-15 11:00 | disposition short-term general hospital (02) ==
LOC: ER 04:09
DX: E11.65 Type 2 diabetes mellitus with hyperglycemia (principal); F17.200 Nicotine dependence, unspecified, uncomplicated; I11.9 Hypertensive heart disease without heart failure; Z59.01 Sheltered homelessness; Z79.899 Other long term (current) drug therapy; Z88.0 Allergy status to penicillin; Z88.1 Allergy status to other antibiotic agents; Z60.2 Problems related to living alone; Z20.822 Contact with and (suspected) exposure to COVID-19
CPT/HCPCS: 99285; 96360; 96361; 87426; 93005; 82803; 85025; 80048; 82010; 83735; 84100; 36415; 82962; 96372; J1815; J7120 ×2; J7030; A4223